=== PATIENT | female | born 1975 | race Two or more races ===

== ENCOUNTER 2020-07-26 10:45 | Outpatient (REF) | payer OTHER, SELFPAY | END 2020-07-26 10:46 | disposition home or self-care (01) | LOC: HO.LAB 10:45 | PROVIDERS: Visit Provider Internal Medicine | DX: Z20.828 Contact with and (suspected) exposure to other viral communicable diseases (principal) | CPT/HCPCS: 87635 ==

== ENCOUNTER 2020-09-26 08:33 | Outpatient (REF) | payer OTHER, SELFPAY ==
[2020-09-27 11:29] LABS: BV Int Neg Control Negative (Negative); BV Int Pos Control Positive (Positive)
[2020-09-28 14:57] LABS: C. trachomatis RNA TMA NOT DETECTED (NOT DETECTED); N. gonorrhoeae RNA TMA NOT DETECTED (NOT DETECTED)
== END 2020-09-26 08:34 | disposition home or self-care (01) ==
LOC: HO.LAB 08:33
PROVIDERS: PCP Physician Assistant; Visit Provider Advanced Practice Midwife
DX: R10.2 Pelvic and perineal pain (principal); N89.8 Other specified noninflammatory disorders of vagina
CPT/HCPCS: 87480; 87491; 87510; 87591; 87660; 99212

== ENCOUNTER 2020-10-14 15:45 | Outpatient (REF) | payer OTHER, SELFPAY ==
--- NOTE | 2020-10-14 15:48 | US_ITS ---
EXAMINATION: ULTRASOUND PELVIS COMPLETE CLINICAL INFORMATION: Pelvic pain. Spotting. COMPARISON: MRI pelvis 01/22/2020. Ultrasound pelvis 01/08/2020. TECHNIQUE: Transabdominal and transvaginal ultrasound of the pelvis is performed. FINDINGS: The uterus is anteverted and homogeneous in echotexture measuring 8.8 cm in length, 3.4 cm in AP and 4.4 cm in transverse dimension. Endometrial thickness measures 0.6 cm. There is an IUD within the endometrial canal in correct position. There are multiple small nabothian cysts in cervix the largest cyst measuring approximately 1.3 cm. Right ovary measures 1.8 x 2.1 x 1.5 cm and volume 3.0 mL. It appears unremarkable. Suboptimal visualization right ovary due to overlying bowel gas. The left ovary has been removed. There is no free fluid in cul-de-sac. US/US pelvic complete IMPRESSION: 1. IUD in correct position within the endometrial canal. The uterus is unremarkable. 2. Multiple nabothian cysts in the cervix with largest cyst measuring 1.3 cm. 3. The right ovary is unremarkable. The left ovary has been surgically removed.
--- NOTE | 2020-10-14 15:48 | US_ITS ---
EXAMINATION: ULTRASOUND PELVIS COMPLETE CLINICAL INFORMATION: Pelvic pain. Spotting. COMPARISON: MRI pelvis 01/22/2020. Ultrasound pelvis 01/08/2020. TECHNIQUE: Transabdominal and transvaginal ultrasound of the pelvis is performed. FINDINGS: The uterus is anteverted and homogeneous in echotexture measuring 8.8 cm in length, 3.4 cm in AP and 4.4 cm in transverse dimension. Endometrial thickness measures 0.6 cm. There is an IUD within the endometrial canal in correct position. There are multiple small nabothian cysts in cervix the largest cyst measuring approximately 1.3 cm. Right ovary measures 1.8 x 2.1 x 1.5 cm and volume 3.0 mL. It appears unremarkable. Suboptimal visualization right ovary due to overlying bowel gas. The left ovary has been removed. There is no free fluid in cul-de-sac. US/US transvaginal IMPRESSION: 1. IUD in correct position within the endometrial canal. The uterus is unremarkable. 2. Multiple nabothian cysts in the cervix with largest cyst measuring 1.3 cm. 3. The right ovary is unremarkable. The left ovary has been surgically removed.
== END 2020-10-14 15:46 | disposition home or self-care (01) ==
LOC: HO.US 15:45
PROVIDERS: Visit Provider Advanced Practice Midwife
DX: R10.2 Pelvic and perineal pain (principal)
CPT/HCPCS: 76830; 76856

== ENCOUNTER → 2020-10-16 11:16 | Outpatient (BNVA) | payer OTHER, SELFPAY | PROVIDERS: PCP Physician Assistant; Visit Provider Advanced Practice Midwife | DX: Z76.89 Persons encountering health services in other specified circumstances (principal) ==

== ENCOUNTER → 2020-11-11 11:03 | Outpatient (BNV) | payer OTHER, SELFPAY | PROVIDERS: PCP Internal Medicine; Visit Provider Internal Medicine | DX: Z80.3 Family history of malignant neoplasm of breast (principal); Z79.810 Long term (current) use of selective estrogen receptor modulators (SERMs) | CPT/HCPCS: 99212; 99213; 99214 ==

== ENCOUNTER → 2020-11-29 11:30 | Outpatient (BNVA) | payer OTHER, SELFPAY | PROVIDERS: PCP Internal Medicine; Visit Provider Urology | DX: N30.10 Interstitial cystitis (chronic) without hematuria (principal) | CPT/HCPCS: 81002; 99212 ==

== ENCOUNTER 2020-12-23 06:20 | Day surgery (SDC) | payer OTHER, SELFPAY ==
[2020-12-13 17:20] VITALS: BMI 28.0
--- NOTE | 2020-12-20 12:07 | HO.ANESPROP2 ---
Documented by User: Meagan Owens 12/20/20 12:09 HPI - Anesthesia Eval Consult details Narrative: 45yo F for Cystoscopy Hydrodistention of Bladder Last Cystoscopy Hydrodistention of Bladder 11/2018 with GA-mask (good effect with scop patch) PMFSH Active Problems Active Problems: All Active Problems (Updated 12/13/20 @ 17:17 by Candy Crowley RN) Pelvic pain (Acute) Vaginal discharge (Acute) Family history of breast cancer (Chronic) Interstitial cystitis (Acute) Past Medical History Medical History Endometriosis Endometriosis determined by laparoscopy Migraine PONV (postoperative nausea and vomiting) 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 Sleep terror Family History Family History Mother History of gastric cancer Breast cancer Maternal Grandmother Ovarian cancer Uterine cancer Cervical cancer Surgical History Surgical History History of elective breast augmentation (~2018) History of left oophorectomy (~2019) History of loop electrical excision procedure (LEEP) Social History Social History Alcohol intake: current Alcohol intake frequency: holidays/special occasions only Smoking Status: Never smoker Second Hand Smoke Exposure: No Use of substances other than those prescribed or required for medical reasons: No Have you been hit, kicked, punched, or otherwise hurt by someone within the past year? If so, by whom?: No Advance Directives: No Advance Directives Information Provided: No Advance Directives on File: No Recently lost weight without trying: No Gender identity: female Meds Allergies Allergy/AdvReac Type Severity Reaction Status Date / Time Gadolinium-Containing Allergy Severe SHORTNESS Verified 10/16/20 11:17 Contrast Medi OF BREATH [GADOLINIUM-CONTAINING CONTRAST] fluoxetine [From PROZAC] Allergy Intermediate PALPITATION Verified 10/16/20 11:17 S acetaminophen [Percocet] Allergy Unknown Itching Verified 12/13/20 17:17 oxycodone [Percocet] Allergy Unknown Palpitation Verified 10/16/20 11:17 s paroxetine [Paxil] Allergy Unknown Palpitation Verified 10/16/20 11:17 s Home Medications Medication Instructions Recorded Confirmed Last Taken Type alprazolam 0.25 mg tablet 0.25 mg PO BEDTIME PRN 09/26/20 12/13/20 Unknown History gabapentin 300 mg capsule 1,500 mg PO BEDTIME cap 09/26/20 12/13/20 Unknown History tamoxifen 20 mg tablet 20 mg PO DAILY 09/26/20 12/13/20 Unknown History Exam Exam Date and Time: December 20, 2020 1207 Height,Weight and Vital Signs: Height 5 ft 3 in Weight 71.668 kg Pertinent Lab Results Pertinent Lab Results: Laboratory Tests 11/11/20 11/11/20 11:54 11:54 WBC 6.5 Hgb 14.5 Hct 44.1 Plt Count 242 Sodium 139 Potassium 4.5 Chloride 105 Carbon Dioxide 27 BUN 11 Creatinine 1.03 Assessment and Plan Assessment Anesthesia Assessment: Chart Reviewed Documented by User: Andressa Prieto 12/23/20 07:15 [facility] Past Medical History Medical History Endometriosis Endometriosis determined by laparoscopy Migraine PONV (postoperative nausea and vomiting) 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 Sleep terror Family History Family History Mother History of gastric cancer Breast cancer Maternal Grandmother Ovarian cancer Uterine cancer Cervical cancer Surgical History Surgical History History of elective breast augmentation (~2018) History of left oophorectomy (~2019) History of loop electrical excision procedure (LEEP) Social History Social History Alcohol intake: current Alcohol intake frequency: holidays/special occasions only Smoking Status: Never smoker Second Hand Smoke Exposure: No Use of substances other than those prescribed or required for medical reasons: No Have you been hit, kicked, punched, or otherwise hurt by someone within the past year? If so, by whom?: No Advance Directives: No Advance Directives Information Provided: No Advance Directives on File: No Recently lost weight without trying: No Gender identity: female Meds Allergies Allergy/AdvReac Type Severity Reaction Status Date / Time Gadolinium-Containing Allergy Severe SHORTNESS Verified 10/16/20 11:17 Contrast Medi OF BREATH [GADOLINIUM-CONTAINING CONTRAST] fluoxetine [From PROZAC] Allergy Intermediate PALPITATION Verified 10/16/20 11:17 S acetaminophen [Percocet] Allergy Unknown Itching Verified 12/13/20 17:17 oxycodone [Percocet] Allergy Unknown Palpitation Verified 10/16/20 11:17 s paroxetine [Paxil] Allergy Unknown Palpitation Verified 10/16/20 11:17 s Home Medications Medication Instructions Recorded Confirmed Last Taken Type alprazolam 0.25 mg tablet 0.25 mg PO BEDTIME PRN 09/26/20 12/13/20 Unknown History gabapentin 300 mg capsule 1,500 mg PO BEDTIME cap 09/26/20 12/13/20 Unknown History tamoxifen 20 mg tablet 20 mg PO DAILY 09/26/20 12/13/20 Unknown History Exam Airway Mallampati Class: II TM Dist: >3cm Neck ROM: Full Assessment and Plan Assessment Anesthesia Assessment: Anesthesia Plan Discussed and Chart Reviewed Final Anesthetic Review NPO: Yes ASA Class: II Final Preanesthetic Review: No Changes in Pt Med Stat, Meds/Allgs Chart Reviewed, Consent Obtained/Reviewed and Anes Risks/Benef Reviewed Patient Risk: Low Procedure Risk: Low Assessment/Block/Sedation in SS: Assess/Block/Sedation-SS Anesthetic Plan Anesthetic Plan: MAC: Disposition: Standard PACU
[2020-12-23 06:20] VITALS: BP 123/78; PULSE 87; RESP 18; TEMP 36.5; O2SAT 99
[2020-12-23 06:38] LABS: UPreg QC Valid YES; Urine Pregnancy NEGATIVE (NEGATIVE)
[2020-12-23] MEDS: Lactated Ringers 1,000 ML 100 ML IVCONT (06:41)
[2020-12-23] MEDS: levoFLOXacin 500 MG TABLET PO (06:46)
[2020-12-23] MEDS: Scopolamine 1.5 MG PATCH.TD.3 TRANSDERMA (06:47)
--- NOTE | 2020-12-23 07:32 | MHC.SHP ---
Pre-Procedural Eval Section A The patient is an INPATIENT: No Changes since office visit: No Cold of Flu in the past 2 weeks, No New Medical Problems, No Changes in Medication and No Patient answered all questions The History & Physical has been completed within 30 days and I have reviewed it.: Yes Section B Chief Complaint: cystitis Allergies: Allergies Allergy/AdvReac Type Severity Reaction Status Date / Time Gadolinium-Containing Allergy Severe SHORTNESS Verified 10/16/20 11:17 Contrast Medi OF BREATH [GADOLINIUM-CONTAINING CONTRAST] fluoxetine [From PROZAC] Allergy Intermediate PALPITATION Verified 10/16/20 11:17 S acetaminophen [Percocet] Allergy Unknown Itching Verified 12/13/20 17:17 oxycodone [Percocet] Allergy Unknown Palpitation Verified 10/16/20 11:17 s paroxetine [Paxil] Allergy Unknown Palpitation Verified 10/16/20 11:17 s Plan Diagnosis/Plan: Unchanged (hydrodistention) I have reviewed the history and physical and performed a pertinent physical examination on my patient. No changes have occurred unless specified.
--- NOTE | 2020-12-23 07:57 | PM.OP ---
Brief Operative Note Date of Service: 12/23/20 Pre-op diagnosis: Interstitial cystitis Post-op diagnosis: same Procedure: Hydrodistention Surgeon: Paddy Murphy MD Anesthesia: MAC Estimated blood loss (mL): 0 Pathology: none sent Condition: stable Disposition: same day
--- NOTE | 2020-12-23 07:58 | W.PM.OPN ---
Operative Note Operative Note Date of Service: 12/23/20 Narrative: PreOperative Diagnosis: Interstitial cystitis Post Operative Diagnosis: Interstitial cystitis Procedure: Hydrodistention Surgeon: Dr Paddy Murphy Anesthesia: Mac Indications for procedure: Interstitial cystitis with ongoing urgency frequency. Prior success with hydrodistention. Procedure: After informed consent was verified the patient was brought to the operating room and placed in a supine position. Anesthesia was administered per protocol. Patient was placed in modified dorsal lithotomy position and prepped and draped in sterile fashion. Safety pause time-out was performed. Antibiotics have been given. 10 cc of viscous lidocaine inserted into bladder and allowed to sit for 3 minutes The bladder was then filled with bag at approximately 40 cm. This was allowed to sit for a minute. Total volume drained was 500 cc. Hydrodistention was repeated total volume gained was close to 600 cc. 30 cc of viscous lidocaine, 1% lidocaine and 0.5% bupivacaine was inserted into bladder completion of procedure for post operative pain management. Pathology: None Drains: Known
[2020-12-23 08:00] VITALS: BP 92/46; PULSE 80; RESP 20; TEMP 36.2; O2SAT 98
[2020-12-23 08:15] VITALS: BP 105/71; PULSE 81; RESP 16; O2SAT 96
[2020-12-23] MEDS: NaPROXEN 500 MG TABLET PO (08:20)
[2020-12-23] MEDS: Phenazopyridine HCL 100 MG TABLET PO (08:21)
[2020-12-23 08:30] VITALS: BP 109/79; PULSE 87; RESP 16; TEMP 36.2; O2SAT 99
== END 2020-12-23 09:09 ==
LOC: HO.SSS 06:21
PROVIDERS: Nurse Practitioner; PCP Physician Assistant; Visit Provider Urology
PROC: 0T7B7ZZ Dilation of Bladder, Via Natural or Artificial Opening (ICD-10-PCS; CPT 52260; principal; 2020-12-23 07:30)
DX: N30.10 Interstitial cystitis (chronic) without hematuria (principal); N80.9 Endometriosis, unspecified; G40.209 Localization-related (focal) (partial) symptomatic epilepsy and epileptic syndromes with complex partial seizures, not intractable, without status epilepticus; Z79.899 Other long term (current) drug therapy; Z91.041 Radiographic dye allergy status; Z88.8 Allergy status to other drugs, medicaments and biological substances
CPT/HCPCS: 52260; 81025; J1100; J2250; J2405; J3010

== ENCOUNTER → 2021-01-31 09:48 | Outpatient (BNVA) | payer OTHER, SELFPAY | PROVIDERS: PCP Physician Assistant; Visit Provider Urology ==

== ENCOUNTER 2021-02-03 13:28 | Outpatient (REF) | payer OTHER, SELFPAY ==
[2021-02-03 15:47] LABS: Syphilis Screen Nonreactive (Nonreactive)
[2021-02-04 04:50] LABS: HBsAGNum1 0.18 S/CO (0.00-0.99); HIV AB/AG Nonreactive (Nonreactive); HIV Num 1 0.06 S/CO (0.00-0.99); Hepatitis B Surface Antigen Negative (Negative); ~HepC Num1 0.09 S/CO (0.00-0.79); ~Hepatitis C Antibody Nonreactive (Nonreactive)
[2021-02-04 06:01] LABS: CT PCR NOT DETECTED (Not Detect.); NG PCR NOT DETECTED (Not Detect.)
[2021-02-04 12:36] LABS: BV Int Neg Control Negative (Negative); BV Int Pos Control Positive (Positive)
== END 2021-02-03 13:29 | disposition home or self-care (01) ==
LOC: HO.LAB 13:28
PROVIDERS: PCP Physician Assistant; Visit Provider Obstetrics & Gynecology
DX: Z01.419 Encounter for gynecological examination (general) (routine) without abnormal findings (principal); Z11.3 Encounter for screening for infections with a predominantly sexual mode of transmission; Z11.8 Encounter for screening for other infectious and parasitic diseases; Z11.4 Encounter for screening for human immunodeficiency virus [HIV]; Z11.59 Encounter for screening for other viral diseases; Z90.721 Acquired absence of ovaries, unilateral; Z88.8 Allergy status to other drugs, medicaments and biological substances
CPT/HCPCS: 36415; 86780; 86803; 87340; 87389; 87480; 87491; 87510; 87591; 87660

== ENCOUNTER 2021-02-06 10:55 | Outpatient (REF) | payer OTHER, SELFPAY ==
--- NOTE | ~2021-02-06 | MR_ITS ---
EXAMINATION: MR BRAIN WITHOUT CONTRAST CLINICAL INFORMATION: Complex partial seizure disorder. COMPARISON: MRI from 07/04/2008. TECHNIQUE: Multiplanar, multisequence imaging of the brain was acquired on a 3 Polina magnet without intravenous administration of contrast. FINDINGS: No diffusion abnormalities are identified to suggest an acute infarct. The ventricles are normal in size. No mass effect or midline shift is seen. Scattered nonspecific mild frontoparietal white matter signal changes noted bilaterally, increased compared to previous imaging. No extra-axial fluid collections are seen. Atlantooccipital assimilation evident with foreshortening of the clivus. There is additional basilar invagination without brainstem compression. The brainstem and cerebellum are normal. No focal cortical dysplasia or migrational abnormality is seen. The hippocampi are normal in appearance. The gradient refocused acquisition demonstrates no pathologic magnetic susceptibility artifact to indicate underlying acute or chronic blood products. The marrow signal is normal. The orbits and pituitary axis appear normal. The major intracranial flow voids at the level of the [place] are preserved. The dural venous sinus flow voids are maintained. The mastoid air cells and paranasal sinuses are well aerated. MR/MR head/brain wo con IMPRESSION: No acute process. Increased nonspecific mild white matter signal changes compared to previous imaging. No hippocampal pathology or epileptogenic focus identified. 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
== END 2021-02-06 10:56 | disposition home or self-care (01) ==
LOC: HO.MRI 10:55
PROVIDERS: Visit Provider Psychiatry & Neurology Neurology
DX: G93.40 Encephalopathy, unspecified (principal)
CPT/HCPCS: 70551

== ENCOUNTER 2021-02-27 10:39 | Outpatient (REF) | payer OTHER, SELFPAY ==
[2021-02-27 13:08] LABS: Erythrocyte Sedimentation Rate 4 MM/HR (0-20)
[2021-02-28 06:21] LABS: Lyme Abs Screen <0.90 index
[2021-02-28 13:37] LABS: Anti Nuclear Antibody Screen NEGATIVE (NEGATIVE)
== END 2021-02-27 10:40 | disposition home or self-care (01) ==
LOC: HO.LAB 10:39
PROVIDERS: Visit Provider Psychiatry & Neurology Neurology
DX: G40.209 Localization-related (focal) (partial) symptomatic epilepsy and epileptic syndromes with complex partial seizures, not intractable, without status epilepticus (principal); G93.49 Other encephalopathy
CPT/HCPCS: 36415; 85652; 86038; 86039; 86617; 86618

== ENCOUNTER 2021-04-28 10:59 | Outpatient (REF) | payer OTHER, SELFPAY ==
--- NOTE | ~2021-04-28 | MM_ITS ---
EXAMINATION: MM SCREENING DIGITAL BREAST TOMOSYNTHESIS, BILATERAL CLINICAL INFORMATION: Screening. Asymptomatic. The lifetime risk of breast cancer based on the Tyrer-Cuzick Model is 17%. COMPARISON: Mammography: 03/22/2020, 12/08/2018, 12/02/2017 TECHNIQUE: Digital mammography is performed in craniocaudal and mediolateral oblique views along with computer-aided detection (CAD). Digital breast tomosynthesis is performed in implant-displaced craniocaudal and implant-displaced mediolateral oblique views along with computer-aided detection (CAD). Synthesized 2D images are generated from the tomosynthesis. FINDINGS: The breasts are heterogeneously dense, which may obscure small masses (ACR BI-RADS breast composition Category c). There are bilateral implants. The implant contours are smooth and similar to prior study. Parenchymal pattern is similar to prior exam. No interval mass or architectural abnormality. No abnormal calcifications. The axilla and skin contours are unremarkable. MM/MM tomosynthesis screen imp BI IMPRESSION: No mammographic evidence of malignancy. ASSESSMENT: BI-RADS 1: Negative RECOMMENDATION: Routine annual mammography screening. This patient's information was entered into a reminder system with a target due date for their next mammogram.
== END 2021-04-28 11:00 | disposition home or self-care (01) ==
LOC: HO.MAMMO 10:59
PROVIDERS: Visit Provider Obstetrics & Gynecology
DX: Z12.31 Encounter for screening mammogram for malignant neoplasm of breast (principal)
CPT/HCPCS: 77063; 77067

== ENCOUNTER → 2021-08-26 11:30 | Outpatient (BNVA) | payer OTHER, SELFPAY | PROVIDERS: PCP Physician Assistant | DX: N30.10 Interstitial cystitis (chronic) without hematuria (principal) | CPT/HCPCS: 99212 ==

== ENCOUNTER → 2022-02-17 09:43 | Outpatient (BNVA) | payer OTHER, SELFPAY | DX: Z13.89 Encounter for screening for other disorder (principal) ==

== ENCOUNTER 2022-03-04 09:34 | Outpatient (REF) | payer OTHER, SELFPAY ==
[2022-03-04 12:29] LABS: HBsAGNum1 0.22 S/CO (0.00-0.99); HIV AB/AG Nonreactive (Nonreactive); HIV Num 1 0.06 S/CO (0.00-0.99); Hepatitis B Surface Antigen Negative (Negative); ~Hepatitis C Antibody Nonreactive (Nonreactive)
[2022-03-04 12:46] LABS: Syphilis Screen Nonreactive (Nonreactive)
[2022-03-04 14:32] LABS: CT PCR NOT DETECTED (Not Detect.); NG PCR NOT DETECTED (Not Detect.)
[2022-03-05 11:03] LABS: BV Int Neg Control Negative (Negative); BV Int Pos Control Positive (Positive)
[2022-03-07 13:02] LABS: HPV mRNA E6/E7 rflx Not Detected (Not Detected)
== END 2022-03-04 09:35 | disposition home or self-care (01) ==
LOC: HO.LAB 09:34
PROVIDERS: PCP Physician Assistant; Visit Provider Advanced Practice Midwife
DX: Z01.419 Encounter for gynecological examination (general) (routine) without abnormal findings (principal); N30.10 Interstitial cystitis (chronic) without hematuria; N80.9 Endometriosis, unspecified; R10.2 Pelvic and perineal pain; Z86.018 Personal history of other benign neoplasm; Z11.3 Encounter for screening for infections with a predominantly sexual mode of transmission; Z97.5 Presence of (intrauterine) contraceptive device; Z79.899 Other long term (current) drug therapy; Z86.16 Personal history of COVID-19
CPT/HCPCS: 36415; 86780; 86803; 87340; 87389; 87480; 87491; 87510; 87591; 87624; 87660; 88142

== ENCOUNTER 2022-04-03 13:28 | Emergency (ER) | payer OTHER, SELFPAY ==
--- NOTE | ~2022-04-03 | CT_ITS ---
EXAMINATION: CT HEAD WITHOUT CONTRAST CLINICAL INFORMATION: Headaches COMPARISON: Brain MRI 02/06/2021 TECHNIQUE: Imaging was performed from the skull base to vertex without intravenous administration of contrast. This CT examination was performed using dose optimization techniques as appropriate, variously including the following: *Automated exposure control *Adjustment of mA and/or kV according to patient size (this includes techniques or standardized protocols for targeted exams where dose is matched to indication/reason for exam; i.e. extremities or head) *Use of iterative reconstruction technique Total exam dose length product: 649 mGy-cm FINDINGS: No intra or extra-axial fluid collection, hemorrhage, or mass. No ventriculomegaly. No midline shift or herniation. Basal cisterns are patent. Sanchez-white matter differentiation is maintained. No territorial encephalomalacia. No significant volume loss. There is no abnormal attenuation within the brain parenchyma. No calvarial fracture or soft tissue abnormality. The mastoid air cells and visualized portions of the paranasal sinuses are well aerated. CT/CT head/brain wo con IMPRESSION: 1. No acute intracranial pathology.
[2022-04-03 14:24] VITALS: BP 141/86; PULSE 73; RESP 16; TEMP 36.1; O2SAT 99; BMI 28.3
[2022-04-03 21:11] LABS: MANUAL DIFF FLAG NO
[2022-04-03 21:14] LABS: Basophils Percent Auto 0.3 % (0-2); Eosinophils Absolute Auto 0.2 X10*3/uL (0.0-0.4); Eosinophils Percent Auto 2.1 % (0-4); Hematocrit 46.9 % (37.0-47.0); Hemoglobin 15.5 g/dl (12.0-16.0); Imm Gran Abs Auto 0.02 X10*3/uL (0.00-0.03); Imm Gran Pct Auto 0.2 % (0.0-0.4); Lymphocytes Absolute Auto 2.5 X10*3/uL (1.2-4.9); Lymphocytes Percent Auto 27.3 % (20-40); Mean Corpuscular Hemoglobin 32.3 pg (27.0-33.0); Mean Corpuscular Volume 97.7 fL (80.0-98.0); Mean Platelet Volume 11.7 fL (9.4-12.3); Monocytes Absolute Auto 0.6 X10*3/uL (0.1-1.2); Monocytes Percent Auto 6.2 % (2-11); Neutrophils Absolute Auto 5.8 x10*3/uL (2.0-8.3); Neutrophils Percent Auto 63.9 % (45-73); Platelet Count 267 X10*3/uL (160-400); Red Cell Distribution Width 12.4 % (11.0-16.0)
[2022-04-03 21:27] LABS: Anion Gap 14 (12-20); Blood Urea Nitrogen 10 mg/dL (9-16); Calcium 9.6 mg/dL (8.4-10.2); Carbon Dioxide 27 mmol/L (22-29); Chloride 105 mmol/L (96-108); Creatinine Clr Calc Pharmacy 69.9; Estimated Glomerular Filt Rate > 60; Glucose Random 98 mg/dL (60-115); Sodium 142 mmol/L (135-145)
[2022-04-03] MEDS: 0.9 % Sodium Chloride 1,000 ML 999 ML IV (21:27)
[2022-04-03] MEDS: ondansetron HCL 4 MG/2 ML VIAL IVPUSH (21:27)
[2022-04-03] MEDS: diphenhydrAMINE HCL 50 MG/ML VIAL 25 MG IVPUSH (21:27)
--- NOTE | 2022-04-03 21:42 | ED.HA ---
HPI - Headache General Chief Complaint: Headache Stated Complaint: headache, vomiting Time Seen by Provider: 04/03/22 20:45 Source: patient Mode of arrival: ambulatory Limitations: no limitations History of Present Illness HPI Narrative: 46-year-old female with history of headache. Patient presented with headache for the past month, patient was seen and evaluated by neurologist and was recommended to take [id number] medication. For the past 2 days patient been having nausea and vomiting. Also been complaining lot of facial pain. No fever, no chills. Related Data Home Medications Medication Instructions Recorded Confirmed alprazolam 0.5 mg tablet 0.5 mg PO DAILY PRN Anxiety 01/31/21 03/26/22 fluorometholone acetate 0.1 % eye 0.1 drp ophthalmic (eye) DAILY 01/31/21 03/26/22 drops,suspension albuterol sulfate 90 mcg/actuation 2 puff inhalation Q6H PRN Wheezing 02/03/21 03/26/22 aerosol inhaler (Ventolin HFA) escitalopram oxalate 10 mg tablet 10 mg PO DAILY 02/17/22 03/26/22 (Lexapro) fluticasone propionate 110 2 puff inhalation BID 02/17/22 03/26/22 mcg/actuation HFA aerosol inhaler (Flovent HFA) levetiracetam 750 mg tablet 750 mg PO BID 02/17/22 03/26/22 (Keppra) levonorgestrel 20 mcg/24 hours (7 52 device intrauterine DIRECTED 03/04/22 03/26/22 yrs) 52 mg intrauterine device (Mirena) Previous Rx's Medication Instructions Recorded tamoxifen 20 mg tablet 20 mg PO DAILY #90 tabs 05/26/21 oxybutynin chloride 5 mg tablet 5 mg PO Q8-12H PRN bladder spasms 12/19/21 30 days #90 tabs Allergies Allergy/AdvReac Type Severity Reaction Status Date / Time Gadolinium-Containing Allergy Severe SHORTNESS Verified 03/04/22 09:54 Contrast Medi OF BREATH [GADOLINIUM-CONTAINING CONTRAST] fluoxetine [From PROZAC] Allergy Intermediate PALPITATION Verified 03/04/22 09:54 S acetaminophen [Percocet] Allergy Unknown Itching Verified 03/04/22 09:54 oxycodone [Percocet] Allergy Unknown Palpitation Verified 06/01/22 09:54 s paroxetine [Paxil] Allergy Unknown Palpitation Verified 03/04/22 09:54 s Review of Systems Review of Systems: All other systems are reviewed and are negative Constitutional: Reports as per HPI and Reports no additional constitutional complaints Eyes: Reports as per HPI and Reports no additional eye complaints Reports system reviewed and no additional complaints, except as documented Cardiovascular: Reports as per HPI and Reports no additional cardiovascular complaints Respiratory: Reports as per HPI and Reports no additional respiratory complaints Gastrointestinal: Reports as per HPI and Reports no additional gastrointestinal complaints Genitourinary: Reports no additional female genitourinary complaints Musculoskeletal: Reports no additional musculoskeletal complaints Skin/Breast: Reports system reviewed and no additional complaints, except as docu Psychiatric: Reports no additional psychiatric complaints Endocrine: Reports no additional endocrine complaints Hematologic/Lymphatic: Reports no additional hematologic/lymphatic complaints Allergic/Immunologic: Reports no additional allergic/immunologic complaints Reports system reviewed and no additional complaints, except as documented and Reports Abnormal speech present PMFSH Past Medical History Medical History COVID-19 Endometriosis Endometriosis determined by laparoscopy Migraine PONV (postoperative nausea and vomiting) 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 Sleep terror Surgical History History of elective breast augmentation (~2018) History of left oophorectomy (~2019) History of loop electrical excision procedure (LEEP) Family History Family History Mother History of gastric cancer Breast cancer Maternal Grandmother Ovarian cancer Uterine cancer Cervical cancer Social History Social History Household Members: Family Housing: House Are you a primary child care director to a significant other at home: Yes (dad) Do you presently have visiting nurse or other home services: No Alcohol intake: current Alcohol intake frequency: holidays/special occasions only Patient Tobacco Use Status: Never used Tobacco Second Hand Smoke Exposure: No Advance Directives: No Advance Directives Information Provided: No service: No Current occupational status: other Gender identity: Female Physical Exam Vital Signs: Vital Signs: Last Vital Signs Temp 98.2 F 04/03/22 22:26 Pulse 91 04/03/22 22:26 Resp 16 04/03/22 23:07 BP 130/35 L 04/03/22 22:26 Pulse Ox 98 04/03/22 22:26 O2 Del Method 04/03/22 22:26 BMI result Body Mass Index 28.3 Vital signs have been reviewed as appeared to be correct. Blood pressure normal. Heart rate normal. Respiration rate normal. Temperature normal. Oxygen saturation normal. Appearance: Alert. Oriented X3. No acute distress. Head: Normal external exam. Normocephalic. Atraumatic. No Sanchez signs noted. No raccoon eyes noted Eyes: PERRLA. EOMI. Conjunctiva and sclera normal. Eyelids normal. ENT: TM's Normal. Pharynx normal. Uvula midline. Moist mucous membranes. No trismus noted. No drooling noted. No muffled voice noted. Neck: Normal inspection. Neck supple. FROM. No adenopathy. Thyroid Normal. No meningeal signs. No neck mass noted. CVS: Normal heart rate and rhythm. Heart sound normal. No murmurs noted. Pulses normal throughout. Respiratory: No respiratory distress. Painless inspiration. Breath sounds normal. No wheezes/rales/rhonchi noted. Chest nontender. No accessory muscle usage noted or decreased air movement noted. Abdomen: Soft and nontender. Bowel sounds normal in all 4 quadrants. No distention noted. No organomegaly noted. No visible injury noted. Back: No CVA tenderness. Full range of motion noted. Skin: Skin warm and dry. Normal skin color. Normal skin turgor. No rashes/lesions/lacerations noted. Extremities: No lower extremity edema. Extremities exhibit normal range of motion. Extremities nontender. Neuro: Oriented X 3. Cranial nerve exam: II-XII are grossly intact No motor deficit. No sensory deficit. Reflexes normal. Course Course Course Narrative: Assessment and plan. Patient feels better, able to tolerate p.o. intake, normal neuro exam, normal head CT. MDM - Headache Lab Data Attestation: I reviewed the patient's lab results. Result diagrams: 04/03/22 21:07 04/03/22 21:07 Labs: Lab Results 04/03/22 04/03/22 Range/Units 21:07 21:07 WBC 9.0 (4.8-10.8) X10*3/uL RBC 4.80 (4.20-5.50) X10*6/uL Hgb 15.5 (12.0-16.0) g/dl Hct 46.9 (37.0-47.0) % MCV 97.7 (80.0-98.0) fL MCH 32.3 (27.0-33.0) pg MCHC 33.0 (31.0-35.0) g/dl RDW 12.4 (11.0-16.0) % Plt Count 267 (160-400) X10*3/uL MPV 11.7 (9.4-12.3) fL Immature Gran % (Auto) 0.2 (0.0-0.4) % Neut % (Auto) 63.9 (45-73) % Lymph % (Auto) 27.3 (20-40) % Cottle % (Auto) 6.2 (2-11) % Eos % (Auto) 2.1 (0-4) % Baso % (Auto) 0.3 (0-2) % Lymph # (Auto) 2.5 (1.2-4.9) X10*3/uL Cottle # (Auto) 0.6 (0.1-1.2) X10*3/uL Eos # (Auto) 0.2 (0.0-0.4) X10*3/uL Baso # (Auto) 0.0 (0.0-0.2) X10*3/uL Abs Immat Gran (auto) 0.02 (0.00-0.03) X10*3/uL Absolute Neuts (auto) 5.8 (2.0-8.3) x10*3/uL Absolute Nucleated RBC 0.000 (0.0-0.012) X10*3/uL Nucleated RBC % (auto) 0.0 (0.0-0.2) /100WBC Sodium 142 (135-145) mmol/L Potassium 4.0 (3.3-5.1) mmol/L Chloride 105 (96-108) mmol/L Carbon Dioxide 27 (22-29) mmol/L Anion Gap 14 (12-20) BUN 10 (9-16) mg/dL Creatinine 0.97 (0.5-1.4) mg/dL Estim Creat Clear Calc 69.9 Estimated GFR > 60 Random Glucose 98 (60-115) mg/dL Calcium 9.6 (8.4-10.2) mg/dL Imaging Data CT scan - head: Attestation: I personally reviewed and interpreted this imaging study as follows: Radiologist's impression: No acute pathology. Discharge Plan Discharge Clinical Impression: Headache Patient Disposition: Home, Self-Care Instructions: Acute Headache (ED) Prescriptions: No Action oxybutynin chloride 5 mg tablet 5 mg PO Q8-12H PRN (Reason: bladder spasms) 30 Days Qty: 90 6RF tamoxifen 20 mg tablet 20 mg PO DAILY Qty: 90 4RF Mirena 20 mcg/24 hours (7 yrs) 52 mg intrauterine device 52 device intrauterine DIRECTED albuterol sulfate [Ventolin HFA] 90 mcg/actuation HFA aerosol inhaler 2 puff inhalation Q6H PRN (Reason: Wheezing) Flarex 0.1 % drops,suspension 0.1 drp ophthalmic (eye) DAILY alprazolam 0.5 mg tablet 0.5 mg PO DAILY PRN (Reason: Anxiety) levetiracetam [Keppra] 750 mg tablet 750 mg PO BID Flovent HFA 110 mcg/actuation HFA aerosol inhaler 2 puff inhalation BID escitalopram oxalate [Lexapro] 10 mg tablet 10 mg PO DAILY Referrals: Nette Willis MD [Physician] - Jose Alejandro Nichols MD [Primary Care Provider] -
[2022-04-03 22:26] VITALS: BP 130/35; PULSE 91; RESP 16; TEMP 36.8; O2SAT 98
[2022-04-03 23:07] VITALS: RESP 16
[2022-04-03] MEDS: Morphine Sulfate 2 MG/ML CARTRIDGE IVPUSH (23:07)
== END 2022-04-04 00:11 | disposition home or self-care (01) ==
PROVIDERS: Emergency Provider Emergency Medicine; PCP Internal Medicine
DX: R51.9 Headache, unspecified (principal); Z79.899 Other long term (current) drug therapy
CPT/HCPCS: 36415; 70450; 80048; 85025; 96361; 96374; 96375; 99284; J1200; J2270; J2405

== ENCOUNTER 2022-04-07 14:23 | Outpatient (REF) | payer OTHER, SELFPAY ==
--- NOTE | ~2022-04-07 | US_ITS ---
EXAMINATION: US PELVIS CLINICAL INFORMATION: Pain COMPARISON: Previous exam October 2020 TECHNIQUE: Ultrasound of the pelvis is performed using both transabdominal and transvaginal transducers along with Doppler. Transvaginal imaging is performed due to inadequate visualization transabdominally. FINDINGS: The uterus is anteverted and retroflexed and measures 9 x 4 x 5 cm in dimension. There is an IUD in the uterus in satisfactory position. Endometrium is not well visualized but does not appear thickened. No focal uterine lesion is seen. There are nabothian cysts in the cervix. The right ovary measures 3.8 x 2.5 x 3.3 cm. There are multiple right ovarian simple cysts or follicles, at least 4, largest measuring 2 cm. The left ovary is not seen. There is trace fluid in the pelvis. US/US pelvic and transvaginal IMPRESSION: IUD in the uterus in satisfactory position. Multiple right ovarian simple cysts or follicles.
== END 2022-04-07 14:24 | disposition home or self-care (01) ==
LOC: HO.US 14:23
PROVIDERS: Visit Provider Advanced Practice Midwife
DX: R10.2 Pelvic and perineal pain (principal); N30.10 Interstitial cystitis (chronic) without hematuria; N80.9 Endometriosis, unspecified; Z86.018 Personal history of other benign neoplasm
CPT/HCPCS: 76830; 76856

== ENCOUNTER → 2022-04-15 11:10 | Outpatient (BNVA) | payer OTHER, SELFPAY | PROVIDERS: PCP Internal Medicine; Visit Provider Advanced Practice Midwife | DX: N80.9 Endometriosis, unspecified (principal); Z86.018 Personal history of other benign neoplasm; Z97.5 Presence of (intrauterine) contraceptive device | CPT/HCPCS: 99212 ==

== ENCOUNTER 2022-06-27 08:39 | Outpatient (REF) | payer OTHER, SELFPAY ==
--- NOTE | ~2022-06-27 | MM_ITS ---
EXAMINATION: MM SCREENING DIGITAL BREAST TOMOSYNTHESIS, BILATERAL CLINICAL INFORMATION: Screening. Asymptomatic. The lifetime risk of breast cancer based on the Tyrer-Cuzick Model is 20%. COMPARISON: Mammography: 04/28/2021, 03/22/2020, 12/18/2018 TECHNIQUE: Digital mammography is performed in craniocaudal and mediolateral oblique views along with computer-aided detection (CAD). Digital breast tomosynthesis is performed in implant-displaced craniocaudal and implant-displaced mediolateral oblique views along with computer-aided detection (CAD). Synthesized 2D images are generated from the tomosynthesis. FINDINGS: The breasts are heterogeneously dense, which may obscure small masses (ACR BI-RADS breast composition Category c). Parenchymal pattern is similar to prior studies. There is no developing density or architectural abnormality. There are bilateral implants with smooth contours are similar to prior exam. There are no abnormal calcifications. The axilla and skin contours are unremarkable. No significant changes. MM/MM tomosynthesis screen imp BI IMPRESSION: No mammographic evidence of malignancy. ASSESSMENT: BI-RADS 1: Negative RECOMMENDATION: Routine annual mammography screening. This patient's information was entered into a reminder system with a target due date for their next mammogram.
== END 2022-06-27 08:40 | disposition home or self-care (01) ==
LOC: HO.MAMMO 08:39
PROVIDERS: Visit Provider Physician Assistant
DX: Z12.31 Encounter for screening mammogram for malignant neoplasm of breast (principal)
CPT/HCPCS: 77063; 77067

== ENCOUNTER 2022-09-14 11:38 | Emergency (ER) | payer OTHER, SELFPAY ==
--- NOTE | ~2022-09-14 | CT_ITS ---
EXAMINATION: CT HEAD WITHOUT CONTRAST CLINICAL INFORMATION: Headache COMPARISON: Head CT 04/03/2022 TECHNIQUE: Imaging was performed from the skull base to vertex without intravenous administration of contrast. This CT examination was performed using dose optimization techniques as appropriate, variously including the following: *Automated exposure control *Adjustment of mA and/or kV according to patient size (this includes techniques or standardized protocols for targeted exams where dose is matched to indication/reason for exam; i.e. extremities or head) *Use of iterative reconstruction technique Total exam dose length product: 671 mGy-cm FINDINGS: No intra or extra-axial fluid collection, hemorrhage, or mass. No ventriculomegaly. No midline shift or herniation. Basal cisterns are patent. Sanchez-white matter differentiation is maintained. No territorial encephalomalacia. No significant volume loss. There is no abnormal attenuation within the brain parenchyma. No calvarial fracture or soft tissue abnormality. The mastoid air cells and visualized portions of the paranasal sinuses are well aerated. CT/CT head/brain wo IV con IMPRESSION: 1. No acute intracranial pathology.
--- NOTE | ~2022-09-14 | XR_ITS ---
EXAMINATION: XR CHEST CLINICAL INFORMATION: Chest pressure, hypertension COMPARISON: Chest x-ray 08/23/2019 TECHNIQUE: 2 views of the chest were obtained. FINDINGS: No significant abnormality is noted involving the heart, lungs, mediastinum, bony thorax or soft tissues. XR/XR chest 2V IMPRESSION: Unremarkable chest examination.
--- NOTE | 2022-09-14 11:43 | ED_ITS ---
HPI - Chest Pain General Chief Complaint: Chest Pain <Lolly Figueroa NP - Last Filed: 09/14/22 11:49> Stated Complaint: Chest pain/Head pressure sent by PCP <Lolly Figueroa NP - Last Filed: 09/14/22 11:49> Time Seen by Provider: 09/14/22 12:29 <Lolly Figueroa NP - Last Filed: 09/14/22 11:49> Source: patient and old records reviewed <Madison Irvin DO - Last Filed: 09/14/22 14:58> Mode of arrival: ambulatory <Madison Irvin DO - Last Filed: 09/14/22 14:58> Limitations: no limitations <Madison Irvin DO - Last Filed: 09/14/22 14:58> History of Present Illness HPI narrative: 46 yo female with hx of seizures compliant with keppra has IUD here with c/o on and off chest pain for the past week - no dyspnea reported no cough or fevers. She is not on OCPs. The patient also reports 2 weeks of R sided headache that won't go away and she checks her BP at home which is 160s - the patient has never had HTN. She notes no trauma. No recent seizures. PCP sent her in for evaluation. The patient feels she is confused too and cannot remember her days well which has been going on since the summer but this week seems worse. PCP office BP 110 <Madison Irvin DO - Last Filed: 09/14/22 14:58> MD complaint: chest pain (headaches) <Madison Irvin DO - Last Filed: 09/14/22 14:58> Onset (ago): week(s) (2) <Madison Irvin DO - Last Filed: 09/14/22 14:58> Timing of current episode: constant <Madison Irvin DO - Last Filed: 09/14/22 14:58> Prior episodes: No <Madison Irvin DO - Last Filed: 09/14/22 14:58> Onset: during rest <Madison Irvin DO - Last Filed: 09/14/22 14:58> Pain location: substernal and other (also R sided headache) <Madison Irvin DO - Last Filed: 09/14/22 14:58> Pain radiation: none <Madison Irvin DO - Last Filed: 09/14/22 14:58> Severity: moderate <Madison Irvin DO - Last Filed: 09/14/22 14:58> Quality: aching and dull <Madison Irvin DO - Last Filed: 09/14/22 14:58> Relieving factors: nothing <Madison Irvin DO - Last Filed: 09/14/22 14:58> Exacerbating factors: nothing <Madison Irvin DO - Last Filed: 09/14/22 14:58> Context: other (notes BP has been high at home 160s went to PCP this AM sent to ED but normotensive 110 with PCP) <Madison Irvin DO - Last Filed: 09/14/22 14:58> Associated symptoms: nausea and other (feels confused, blurry vision) <Madison Irvin DO - Last Filed: 09/14/22 14:58> Treatment prior to arrival: none <Madison Irvin DO - Last Filed: 09/14/22 14:58> Related Data Home Medications: Home Medications Medication Instructions Recorded Confirmed alprazolam 0.5 mg tablet 0.5 mg PO DAILY PRN Anxiety 01/31/21 06/26/22 fluorometholone acetate 0.1 % eye 0.1 drp ophthalmic (eye) DAILY 01/31/21 06/26/22 drops,suspension albuterol sulfate 90 mcg/actuation 2 puff inhalation Q6H PRN Wheezing 02/03/21 06/26/22 aerosol inhaler (Ventolin HFA) escitalopram oxalate 10 mg tablet 10 mg PO DAILY 02/17/22 06/26/22 (Lexapro) fluticasone propionate 110 2 puff inhalation BID 02/17/22 06/26/22 mcg/actuation HFA aerosol inhaler (Flovent HFA) levetiracetam 750 mg tablet 750 mg PO BID 02/17/22 06/26/22 (Keppra) levonorgestrel 20 mcg/24 hours (8 52 device intrauterine DIRECTED 03/04/22 06/26/22 yrs) 52 mg intrauterine device (Mirena) fluticasone propionate 50 1 spray intranasal DAILY 04/15/22 06/26/22 mcg/actuation nasal spray,suspension (Allergy Relief (fluticasone)) loratadine 10 mg tablet (Allergy 10 mg PO DAILY 04/15/22 06/26/22 Relief (loratadine)) Previous Rx's Medication Instructions Recorded oxybutynin chloride 5 mg tablet 5 mg PO Q8-12H PRN bladder spasms 12/19/21 30 days #90 tabs tamoxifen 20 mg tablet 20 mg PO DAILY #90 tabs 06/24/22 nitrofurantoin 100 mg PO Q12H 3 days #6 caps 09/14/22 monohydrate/macrocrystals 100 mg capsule (Macrobid) <Lolly Figueroa NP - Last Filed: 09/14/22 11:49> Allergies/Adverse Reactions: Allergies Allergy/AdvReac Type Severity Reaction Status Date / Time Gadolinium-Containing Allergy Severe SHORTNESS Verified 09/14/22 11:42 Contrast Medi OF BREATH [GADOLINIUM-CONTAINING CONTRAST] acetaminophen [Percocet] Allergy Intermediate Itching Verified 09/14/22 11:42 fluoxetine [From PROZAC] Allergy Intermediate PALPITATION Verified 09/14/22 11:42 S oxycodone [Percocet] Allergy Intermediate Palpitation Verified 09/14/22 11:42 s paroxetine [Paxil] Allergy Intermediate Palpitation Verified 09/14/22 11:42 s <Lolly Figueroa NP - Last Filed: 09/14/22 11:49> Review of Systems Review of Systems: Constitutional : No Fever, No Chills, No Fatigue ENT/Mouth : No sore throat, No Rhinorrhea Eyes: No Eye Pain, No Swelling, No Redness Cardiovascular : pos Chest Pain, No SOB, No Dyspnea on Exertion Respiratory : No Cough, No Sputum Gastrointestinal : No Nausea, No Vomiting, No Diarrhea, No abdominal Pain Genitourinary : No Dysuria, No Urinary Frequency, No Hematuria, Musculoskeletal : No joint pain, No Myalgias, No Joint Swelling Skin : No Skin Lesions, No rash Neuro : No Weakness, No Numbness, No Dizziness, positive Headache, pos confusion Psych : No Anxiety/Panic, No Depression Heme/Lymph: No Bruising, No Bleeding,No Lymphadenopathy Endocrine : No Polyuria, No Polydipsia All other systems reviewed and are negative <Madison Irvin DO - Last Filed: 09/14/22 14:58> PMFSH Past Medical History Attestation statement: The following information was validated with the patient. <Madison Irvin DO - Last Filed: 09/14/22 14:58> Medical History: Medical History COVID-19 Endometriosis Endometriosis determined by laparoscopy Migraine PONV (postoperative nausea and vomiting) 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 Sleep terror <Lolly Figueroa NP - Last Filed: 09/14/22 11:49> Surgical History: Surgical History History of elective breast augmentation (~2019) History of left oophorectomy (~2019) History of loop electrical excision procedure (LEEP) <Lolly Figueroa NP - Last Filed: 09/14/22 11:49> Family History Family History: Family History Mother History of gastric cancer Breast cancer Maternal Grandmother Ovarian cancer Uterine cancer Cervical cancer <Lolly Figueroa NP - Last Filed: 09/14/22 11:49> Social History Social History: Social History Household Members: Family Housing: House Are you a primary care connector to a significant other at home: Yes (dad) Do you presently have visiting nurse or other home services: No Alcohol intake: current Alcohol intake frequency: holidays/special occasions only Patient Tobacco Use Status: Never used Tobacco Second Hand Smoke Exposure: No Advance Directives: No Advance Directives Information Provided: No service: No Current occupational status: other Gender identity: Female <Lolly Figueroa NP - Last Filed: 09/14/22 11:49> Physical Exam Vital Signs: Vital Signs: Last Vital Signs Temp 98.3 F 09/14/22 11:44 Pulse 79 09/14/22 13:22 Resp 16 09/14/22 13:22 BP 131/80 09/14/22 13:22 Pulse Ox 100 09/14/22 13:22 O2 Del Method 09/14/22 13:22 BMI result Body Mass Index 28.7 <Lolly Figueroa NP - Last Filed: 09/14/22 11:49> Vital Signs: Last Vital Signs Temp 98.3 F 09/14/22 11:44 Pulse 79 09/14/22 13:22 Resp 16 09/14/22 13:22 BP 131/80 09/14/22 13:22 Pulse Ox 100 09/14/22 13:22 O2 Del Method 09/14/22 13:22 BMI result Body Mass Index 28.7 <Madison Irvin DO - Last Filed: 09/14/22 14:58> Appearance: Alert. Oriented X3. No acute distress. Eyes: Pupils equal, round and reactive to light. ENT: Pharynx normal. Neck: Normal inspection. Neck supple. CVS: Normal heart rate and rhythm. Pulses normal. Respiratory: No respiratory distress. Breath sounds normal. Abdomen: Soft and nontender. Skin: Skin warm and dry. Normal skin color. Normal skin turgor. Extremities: No lower extremity edema. No calf ttp Neuro: Oriented X 3. No motor deficit. No sensory deficit. normal gait no ataxia <Madison Irvin DO - Last Filed: 09/14/22 14:58> Course Course Course Narrative: This is a rapid medical exam. Deferred additional HPI, ROS, PE to primary provider. 46 yo female with pmh of seizure disorder, on tamoxifen pptx here with several weeks of head pressure, chest pressure (started ), feels confused with blurry vision and elevated blood pressures at homes. Seen at PCP and sent in for further evaluation. BP normotensive in triage. Has logs with her with elevated bp up to 160/110 at home. will check labs, EKG, CXR. VSS <Lolly Figueroa NP - Last Filed: 09/14/22 11:49> This is a rapid medical exam. Deferred additional HPI, ROS, PE to primary provider. 46 yo female with pmh of seizure disorder, on tamoxifen pptx here with several weeks of head pressure, chest pressure (started ), feels confused with blurry vision and elevated blood pressures at homes. Seen at PCP and sent in for further evaluation. BP normotensive in triage. Has logs with her with elevated bp up to 160/110 at home. will check labs, EKG, CXR. VSS BP normal no acute findings at this time can be DC home <Madison Irvin DO - Last Filed: 09/14/22 14:58> Medical Decision Making Medical Decision Making MDM Narrative: 46 yo female with reports of headaches R side x 2 weeks and feels confused at times she has hx of seizures but no recent seizures or trauma - she is mentating fine here and has normal BPs though notes BP has been up to 160s at home for 1 week. She has no fevers other at this time labs, CT head for mass ordered. She also has atypical chest pain but is PERC negative and EKG is nonischemic - CXR and troponin ordered seems atypical for ACS and has no sig risk factors. Dispo per results and findings. <Madison Irvin DO - Last Filed: 09/14/22 14:58> Differential Diagnosis Differential Diagnoses: The differential diagnosis associated with the presentation includes (tension headache, migraine, mass, atypical chest pain) <Madison Irvin DO - Last Filed: 09/14/22 14:58> Lab Data [facility] Lab Attestation statement: I reviewed the patient's lab results. <Madison Irvin DO - Last Filed: 09/14/22 14:58> Result Diagrams: : 09/14/22 12:00 09/14/22 12:00 <Lolly Figueroa NP - Last Filed: 09/14/22 11:49> Labs: Lab Results 09/14/22 09/14/22 09/14/22 Range/Units 12:00 12:00 12:00 WBC 7.8 (4.8-10.8) X10*3/uL RBC 4.40 (4.20-5.50) X10*6/uL Hgb 14.0 (12.0-16.0) g/dl Hct 42.0 (37.0-47.0) % MCV 95.5 (80.0-98.0) fL MCH 31.8 (27.0-33.0) pg MCHC 33.3 (31.0-35.0) g/dl RDW 11.9 (11.0-16.0) % Plt Count 238 (160-400) X10*3/uL MPV 11.2 (9.4-12.3) fL Immature Gran % (Auto) 0.3 (0.0-0.4) % Neut % (Auto) 65.5 (45-73) % Lymph % (Auto) 26.5 (20-40) % [place] % (Auto) 6.1 (2-11) % Eos % (Auto) 1.2 (0-4) % Baso % (Auto) 0.4 (0-2) % Lymph # (Auto) 2.1 (1.2-4.9) X10*3/uL [place] # (Auto) 0.5 (0.1-1.2) X10*3/uL Eos # (Auto) 0.1 (0.0-0.4) X10*3/uL Baso # (Auto) 0.0 (0.0-0.2) X10*3/uL Abs Immat Gran (auto) 0.02 (0.00-0.03) X10*3/uL Absolute Neuts (auto) 5.1 (2.0-8.3) x10*3/uL Absolute Nucleated RBC 0.000 (0.0-0.012) X10*3/uL Nucleated RBC % (auto) 0.0 (0.0-0.2) /100WBC ESR (0-20) MM/HR Sodium 139 (135-145) mmol/L Potassium 4.4 (3.3-5.1) mmol/L Chloride 106 (96-108) mmol/L Carbon Dioxide 26 (22-29) mmol/L Anion Gap 11 L (12-20) BUN 13 (9-16) mg/dL Creatinine 0.88 (0.5-1.4) mg/dL Estim Creat Clear Calc 77.5 Estimated GFR > 60 Random Glucose 99 (60-115) mg/dL Calcium 9.2 (8.4-10.2) mg/dL Total Bilirubin 0.4 (0.0-1.0) mg/dL Direct Bilirubin < 0.2 (0.0-0.5) mg/dL AST 18 (5-31) U/L ALT 15 (0-31) U/L Alkaline Phosphatase 33 L (39-117) U/L Troponin I High Sens < 3.5 (<3.5-17.0) ng/L Total Protein 7.1 (6.5-8.0) g/dL Albumin 4.2 (3.5-5.0) g/dL TSH 1.95 (0.32-4.0) uIU/mL Urine Color Urine Appearance Urine pH (5.0-9.0) Ur Specific [place] (1.005-1.025) Urine Protein (Neg-Trace) mg/dL Urine Glucose (UA) (Negative) mg/dL Urine Ketones (Negative) mg/dL Urine Blood (Negative) Urine Nitrite (Negative) Ur Leukocyte Esterase (Negative) Urine RBC (0-2) /HPF Urine WBC (0-5) /HPF Ur Squamous Epith Cells (0-2) /HPF Urine Bacteria (None Seen) Hyaline Casts (0-2) /LPF Urine Test (NEGATIVE) 09/14/22 09/14/22 09/14/22 Range/Units 12:00 12:19 12:19 WBC (4.8-10.8) X10*3/uL RBC (4.20-5.50) X10*6/uL Hgb (12.0-16.0) g/dl Hct (37.0-47.0) % MCV (80.0-98.0) fL MCH (27.0-33.0) pg MCHC (31.0-35.0) g/dl RDW (11.0-16.0) % Plt Count (160-400) X10*3/uL MPV (9.4-12.3) fL Immature Gran % (Auto) (0.0-0.4) % Neut % (Auto) (45-73) % Lymph % (Auto) (20-40) % [place] % (Auto) (2-11) % Eos % (Auto) (0-4) % Baso % (Auto) (0-2) % Lymph # (Auto) (1.2-4.9) X10*3/uL [place] # (Auto) (0.1-1.2) X10*3/uL Eos # (Auto) (0.0-0.4) X10*3/uL Baso # (Auto) (0.0-0.2) X10*3/uL Abs Immat Gran (auto) (0.00-0.03) X10*3/uL Absolute Neuts (auto) (2.0-8.3) x10*3/uL Absolute Nucleated RBC (0.0-0.012) X10*3/uL Nucleated RBC % (auto) (0.0-0.2) /100WBC ESR 5 (0-20) MM/HR Sodium (135-145) mmol/L Potassium (3.3-5.1) mmol/L Chloride (96-108) mmol/L Carbon Dioxide (22-29) mmol/L Anion Gap (12-20) BUN (9-16) mg/dL Creatinine (0.5-1.4) mg/dL Estim Creat Clear Calc Estimated GFR Random Glucose (60-115) mg/dL Calcium (8.4-10.2) mg/dL Total Bilirubin (0.0-1.0) mg/dL Direct Bilirubin (0.0-0.5) mg/dL AST (5-31) U/L ALT (0-31) U/L Alkaline Phosphatase (39-117) U/L Troponin I High Sens (<3.5-17.0) ng/L Total Protein (6.5-8.0) g/dL Albumin (3.5-5.0) g/dL TSH (0.32-4.0) uIU/mL Urine Color Dark Yellow Urine Appearance Cloudy Urine pH 5.0 (5.0-9.0) Ur Specific [place] >= 1.030 H (1.005-1.025) Urine Protein 30 (1+) H (Neg-Trace) mg/dL Urine Glucose (UA) Negative (Negative) mg/dL Urine Ketones 15 (Negative) mg/dL Urine Blood Trace H (Negative) Urine Nitrite Negative (Negative) Ur Leukocyte Esterase Small (1+) H (Negative) Urine RBC 6-10 H (0-2) /HPF Urine WBC 21-50 H (0-5) /HPF Ur Squamous Epith Cells 6-10 (0-2) /HPF Urine Bacteria 4+ (None Seen) Hyaline Casts 0-2 (0-2) /LPF Urine Test NEGATIVE (NEGATIVE) <Lolly Figueroa NP - Last Filed: 09/14/22 11:49> Lab Results 09/14/22 09/14/22 09/14/22 Range/Units 12:00 12:00 12:00 WBC 7.8 (4.8-10.8) X10*3/uL RBC 4.40 (4.20-5.50) X10*6/uL Hgb 14.0 (12.0-16.0) g/dl Hct 42.0 (37.0-47.0) % MCV 95.5 (80.0-98.0) fL MCH 31.8 (27.0-33.0) pg MCHC 33.3 (31.0-35.0) g/dl RDW 11.9 (11.0-16.0) % Plt Count 238 (160-400) X10*3/uL MPV 11.2 (9.4-12.3) fL Immature Gran % (Auto) 0.3 (0.0-0.4) % Neut % (Auto) 65.5 (45-73) % Lymph % (Auto) 26.5 (20-40) % [place] % (Auto) 6.1 (2-11) % Eos % (Auto) 1.2 (0-4) % Baso % (Auto) 0.4 (0-2) % Lymph # (Auto) 2.1 (1.2-4.9) X10*3/uL [place] # (Auto) 0.5 (0.1-1.2) X10*3/uL Eos # (Auto) 0.1 (0.0-0.4) X10*3/uL Baso # (Auto) 0.0 (0.0-0.2) X10*3/uL Abs Immat Gran (auto) 0.02 (0.00-0.03) X10*3/uL Absolute Neuts (auto) 5.1 (2.0-8.3) x10*3/uL Absolute Nucleated RBC 0.000 (0.0-0.012) X10*3/uL Nucleated RBC % (auto) 0.0 (0.0-0.2) /100WBC ESR (0-20) MM/HR Sodium 139 (135-145) mmol/L Potassium 4.4 (3.3-5.1) mmol/L Chloride 106 (96-108) mmol/L Carbon Dioxide 26 (22-29) mmol/L Anion Gap 11 L (12-20) BUN 13 (9-16) mg/dL Creatinine 0.88 (0.5-1.4) mg/dL Estim Creat Clear Calc 77.5 Estimated GFR > 60 Random Glucose 99 (60-115) mg/dL Calcium 9.2 (8.4-10.2) mg/dL Total Bilirubin 0.4 (0.0-1.0) mg/dL Direct Bilirubin < 0.2 (0.0-0.5) mg/dL AST 18 (5-31) U/L ALT 15 (0-31) U/L Alkaline Phosphatase 33 L (39-117) U/L Troponin I High Sens < 3.5 (<3.5-17.0) ng/L Total Protein 7.1 (6.5-8.0) g/dL Albumin 4.2 (3.5-5.0) g/dL TSH 1.95 (0.32-4.0) uIU/mL Urine Color Urine Appearance Urine pH (5.0-9.0) Ur Specific [place] (1.005-1.025) Urine Protein (Neg-Trace) mg/dL Urine Glucose (UA) (Negative) mg/dL Urine Ketones (Negative) mg/dL Urine Blood (Negative) Urine Nitrite (Negative) Ur Leukocyte Esterase (Negative) Urine RBC (0-2) /HPF Urine WBC (0-5) /HPF Ur Squamous Epith Cells (0-2) /HPF Urine Bacteria (None Seen) Hyaline Casts (0-2) /LPF Urine Test (NEGATIVE) 09/14/22 09/14/22 09/14/22 Range/Units 12:00 12:19 12:19 WBC (4.8-10.8) X10*3/uL RBC (4.20-5.50) X10*6/uL Hgb (12.0-16.0) g/dl Hct (37.0-47.0) % MCV (80.0-98.0) fL MCH (27.0-33.0) pg MCHC (31.0-35.0) g/dl RDW (11.0-16.0) % Plt Count (160-400) X10*3/uL MPV (9.4-12.3) fL Immature Gran % (Auto) (0.0-0.4) % Neut % (Auto) (45-73) % Lymph % (Auto) (20-40) % [place] % (Auto) (2-11) % Eos % (Auto) (0-4) % Baso % (Auto) (0-2) % Lymph # (Auto) (1.2-4.9) X10*3/uL [place] # (Auto) (0.1-1.2) X10*3/uL Eos # (Auto) (0.0-0.4) X10*3/uL Baso # (Auto) (0.0-0.2) X10*3/uL Abs Immat Gran (auto) (0.00-0.03) X10*3/uL Absolute Neuts (auto) (2.0-8.3) x10*3/uL Absolute Nucleated RBC (0.0-0.012) X10*3/uL Nucleated RBC % (auto) (0.0-0.2) /100WBC ESR 5 (0-20) MM/HR Sodium (135-145) mmol/L Potassium (3.3-5.1) mmol/L Chloride (96-108) mmol/L Carbon Dioxide (22-29) mmol/L Anion Gap (12-20) BUN (9-16) mg/dL Creatinine (0.5-1.4) mg/dL Estim Creat Clear Calc Estimated GFR Random Glucose (60-115) mg/dL Calcium (8.4-10.2) mg/dL Total Bilirubin (0.0-1.0) mg/dL Direct Bilirubin (0.0-0.5) mg/dL AST (5-31) U/L ALT (0-31) U/L Alkaline Phosphatase (39-117) U/L Troponin I High Sens (<3.5-17.0) ng/L Total Protein (6.5-8.0) g/dL Albumin (3.5-5.0) g/dL TSH (0.32-4.0) uIU/mL Urine Color Dark Yellow Urine Appearance Cloudy Urine pH 5.0 (5.0-9.0) Ur Specific [place] >= 1.030 H (1.005-1.025) Urine Protein 30 (1+) H (Neg-Trace) mg/dL Urine Glucose (UA) Negative (Negative) mg/dL Urine Ketones 15 (Negative) mg/dL Urine Blood Trace H (Negative) Urine Nitrite Negative (Negative) Ur Leukocyte Esterase Small (1+) H (Negative) Urine RBC 6-10 H (0-2) /HPF Urine WBC 21-50 H (0-5) /HPF Ur Squamous Epith Cells 6-10 (0-2) /HPF Urine Bacteria 4+ (None Seen) Hyaline Casts 0-2 (0-2) /LPF Urine Test NEGATIVE (NEGATIVE) <Madison Irvin DO - Last Filed: 09/14/22 14:58> Independent Interpretation I performed an independent interpretation of an: EKG <Madison Irvin DO - Last Filed: 09/14/22 14:58> Interpretation: Rate: 69 Rhythm: NSR [place]: normal Normal P waves. Normal PASCUAL. Normal QRS complex. ST T wave : normal no MARIANNA qTC: normal prior studies: no acute ischemia The study has been interpreted contemporaneously by me. <Madison Irvin DO - Last Filed: 09/14/22 14:58> Discharge Plan Discharge Clinical Impression: Atypical chest pain, Worsening headaches <Lolly Figueroa NP - Last Filed: 09/14/22 11:49> Patient Disposition: Home, Self-Care <Lolly Figueroa NP - Last Filed: 09/14/22 11:49> Instructions: Chest Pain (ED), Acute Headache (ED) <Lolly Figueroa NP - Last Filed: 09/14/22 11:49> Additional Instructions: return to ED for any worsening symptoms or concerns CT head was negative, heart tests negative mild UTI please follow up with your doctor for further blood pressure monitoring <Lolly Figueroa NP - Last Filed: 09/14/22 11:49> Prescriptions: New nitrofurantoin monohyd/m-cryst [Macrobid] 100 mg capsule 100 mg PO Q12H 3 Days Qty: 6 0RF Rx Instructions: must administer with a meal/food No Action oxybutynin chloride 5 mg tablet 5 mg PO Q8-12H PRN (Reason: bladder spasms) 30 Days Qty: 90 6RF tamoxifen 20 mg tablet 20 mg PO DAILY Qty: 90 4RF Mirena 20 mcg/24 hours (7 yrs) 52 mg intrauterine device 52 device intrauterine DIRECTED albuterol sulfate [Ventolin HFA] 90 mcg/actuation HFA aerosol inhaler 2 puff inhalation Q6H PRN (Reason: Wheezing) Flarex 0.1 % drops,suspension 0.1 drp ophthalmic (eye) DAILY alprazolam 0.5 mg tablet 0.5 mg PO DAILY PRN (Reason: Anxiety) fluticasone propionate [Allergy Relief (fluticasone)] 50 mcg/actuation spray,suspension 1 spray intranasal DAILY Rx Instructions: administer into each nostril loratadine [Allergy Relief (loratadine)] 10 mg tablet 10 mg PO DAILY levetiracetam [Keppra] 750 mg tablet 750 mg PO BID Flovent HFA 110 mcg/actuation HFA aerosol inhaler 2 puff inhalation BID escitalopram oxalate [Lexapro] 10 mg tablet 10 mg PO DAILY <Lolly Figueroa NP - Last Filed: 09/14/22 11:49> Referrals: Jose Alejandro Nichols MD [Primary Care Provider] - 2 days <Lolly Figueroa NP - Last Filed: 09/14/22 11:49> Stand Alone Forms: Work/School Release <Lolly Figueroa NP - Last Filed: 09/14/22 11:49>
[2022-09-14 11:44] VITALS: BP 122/78; PULSE 79; RESP 16; TEMP 36.8; O2SAT 97; BMI 28.7
--- NOTE | 2022-09-14 11:46 | ECG_ITS ---
Test Reason : cp Blood Pressure : / mmHG Vent. Rate : 069 BPM Atrial Rate : 069 BPM P-R Int : 154 ms QRS Dur : 076 ms QT Int : 402 ms P-R-T Axes : 063 054 062 degrees QTc Int : 430 ms Normal sinus rhythm Normal ECG When compared with ECG of 15-MAY-2009 19:36, No significant change was found Referred By: Lolly Figueroa Electronically Signed By:HATTIE CORTEZ
[2022-09-14 12:05] LABS: MANUAL DIFF FLAG NO
[2022-09-14 12:08] LABS: Basophils Percent Auto 0.4 % (0-2); Eosinophils Absolute Auto 0.1 X10*3/uL (0.0-0.4); Eosinophils Percent Auto 1.2 % (0-4); Imm Gran Abs Auto 0.02 X10*3/uL (0.00-0.03); Imm Gran Pct Auto 0.3 % (0.0-0.4); Lymphocytes Absolute Auto 2.1 X10*3/uL (1.2-4.9); Lymphocytes Percent Auto 26.5 % (20-40); Mean Corpuscular HGB Conc 33.3 g/dl (31.0-35.0); Mean Corpuscular Hemoglobin 31.8 pg (27.0-33.0); Mean Corpuscular Volume 95.5 fL (80.0-98.0); Mean Platelet Volume 11.2 fL (9.4-12.3); Monocytes Absolute Auto 0.5 X10*3/uL (0.1-1.2); Monocytes Percent Auto 6.1 % (2-11); Neutrophils Absolute Auto 5.1 x10*3/uL (2.0-8.3); Neutrophils Percent Auto 65.5 % (45-73); Platelet Count 238 X10*3/uL (160-400); Red Cell Distribution Width 11.9 % (11.0-16.0); White Blood Count 7.8 X10*3/uL (4.8-10.8)
[2022-09-14 12:22] LABS: Alanine Aminotransferase 15 U/L (0-31); Albumin Level 4.2 g/dL (3.5-5.0); Alkaline Phosphatase 33 U/L (39-117); Anion Gap 11 (12-20); Aspartate Amino Transferase 18 U/L (5-31); Bilirubin Direct < 0.2 mg/dL (0.0-0.5); Bilirubin Total 0.4 mg/dL (0.0-1.0); Blood Urea Nitrogen 13 mg/dL (9-16); Calcium 9.2 mg/dL (8.4-10.2); Carbon Dioxide 26 mmol/L (22-29); Chloride 106 mmol/L (96-108); Creatinine Clr Calc Pharmacy 77.5; Estimated Glomerular Filt Rate > 60; Glucose Random 99 mg/dL (60-115); Potassium 4.4 mmol/L (3.3-5.1); Sodium 139 mmol/L (135-145); Total Protein 7.1 g/dL (6.5-8.0)
[2022-09-14 12:26] LABS: Troponin-I High Sensitivity < 3.5 ng/L (<3.5-17.0)
[2022-09-14 12:26] LABS: Appearance Urine Cloudy; Color Urine Dark Yellow; Glucose Urine UA Negative (Negative); Leukocyte Esterase Urine Small (1+) (Negative); Nitrite Urine Negative (Negative); Specific Gravity - Urine >= 1.030 (1.005-1.025); UMIC TRIGGER UACC YES; Urine Blood Trace (Negative); Urine Ketones 15 mg/dL (Negative); Urine Protein 30 (1+) mg/dL (Neg-Trace)
[2022-09-14 12:28] LABS: UPreg QC Valid YES; Urine Pregnancy NEGATIVE (NEGATIVE)
[2022-09-14 12:33] LABS: Bacteria Urine 4+ (None Seen); Hyaline Casts Urine 0-2 /LPF (0-2); UACC Culture Trigger YES; WBC Urine 21-50 /HPF (0-5)
[2022-09-14 13:22] VITALS: BP 131/80; PULSE 79; RESP 16; O2SAT 100
[2022-09-14 14:12] LABS: TSH reflex Free T4 1.95 uIU/mL (0.32-4.0)
[2022-09-14 14:27] LABS: Erythrocyte Sedimentation Rate 5 MM/HR (0-20)
[2022-09-14 15:01] VITALS: BP 122/79; PULSE 76; RESP 14; O2SAT 97
== END 2022-09-14 16:58 | disposition home or self-care (01) ==
PROVIDERS: Nurse Practitioner Family; Emergency Provider Emergency Medicine; PCP Internal Medicine
DX: R07.89 Other chest pain (principal); R51.9 Headache, unspecified; Z79.899 Other long term (current) drug therapy
CPT/HCPCS: 36415; 70450; 71046; 80048; 80076; 81001; 81025; 84443; 84484; 85025; 85652; 87086; 93005; 99284

== ENCOUNTER 2022-12-14 14:27 | Outpatient (REF) | payer OTHER, SELFPAY | END 2022-12-14 14:28 | disposition home or self-care (01) | LOC: HO.LNP 14:27 | PROVIDERS: PCP Internal Medicine; Visit Provider Advanced Practice Midwife | DX: N89.8 Other specified noninflammatory disorders of vagina (principal); Z97.5 Presence of (intrauterine) contraceptive device | CPT/HCPCS: 99212 ==

== ENCOUNTER 2022-12-14 15:44 | Outpatient (REF) | payer OTHER, SELFPAY ==
[2022-12-14 18:00] LABS: CT PCR NOT DETECTED (Not Detect.); NG PCR NOT DETECTED (Not Detect.)
[2022-12-15 10:57] LABS: BV Int Neg Control Negative (Negative); BV Int Pos Control Positive (Positive)
[2022-12-16 04:09] LABS: Syphilis Screen Nonreactive (Nonreactive)
[2022-12-16 04:34] LABS: HBsAGNum1 0.27 S/CO (0.00-0.99); HIV AB/AG Nonreactive (Nonreactive); HIV Num 1 0.06 S/CO (0.00-0.99); Hepatitis B Surface Antigen Negative (Negative); ~HepC Num1 0.12 S/CO (0.00-0.79); ~Hepatitis C Antibody Nonreactive (Nonreactive)
== END 2022-12-14 15:45 | disposition home or self-care (01) ==
LOC: HO.LAB 15:44
PROVIDERS: PCP Physician Assistant; Visit Provider Advanced Practice Midwife
DX: Z11.4 Encounter for screening for human immunodeficiency virus [HIV] (principal); Z11.3 Encounter for screening for infections with a predominantly sexual mode of transmission; N89.8 Other specified noninflammatory disorders of vagina; Z97.5 Presence of (intrauterine) contraceptive device
CPT/HCPCS: 0353U; 86780; 86803; 87340; 87389; 87480; 87510; 87660

== ENCOUNTER 2023-01-25 10:33 | Outpatient (REF) | payer OTHER, SELFPAY ==
[2023-01-25 14:29] LABS: CT PCR NOT DETECTED (Not Detect.); NG PCR NOT DETECTED (Not Detect.)
[2023-01-26 09:55] LABS: BV Int Neg Control Negative (Negative); BV Int Pos Control Positive (Positive)
== END 2023-01-25 10:34 | disposition home or self-care (01) ==
LOC: HO.LNP 10:33
PROVIDERS: PCP Physician Assistant; Visit Provider Advanced Practice Midwife
DX: Z11.3 Encounter for screening for infections with a predominantly sexual mode of transmission (principal); A59.9 Trichomoniasis, unspecified; Z98.890 Other specified postprocedural states
CPT/HCPCS: 0353U; 87480; 87510; 87660; 99212

== ENCOUNTER 2023-07-03 09:48 | Outpatient (REF) | payer OTHER, SELFPAY ==
--- NOTE | ~2023-07-03 | MM_ITS ---
EXAMINATION: MM SCREENING DIGITAL BREAST TOMOSYNTHESIS, BILATERAL WITH BILATERAL BREAST IMPLANTS. CLINICAL INFORMATION: Screening. Asymptomatic. COMPARISON: Mammography: This study is compared to the prior examinations dating back to 2019. TECHNIQUE: Digital mammography is performed in craniocaudal and mediolateral oblique views along with computer-aided detection (CAD). Digital breast tomosynthesis is performed in implant-displaced craniocaudal and implant-displaced mediolateral oblique views along with computer-aided detection (CAD). Synthesized 2D images are generated from the tomosynthesis. FINDINGS: The breasts are heterogeneously dense, which may obscure small masses (ACR BI-RADS breast composition Category c). There are bilateral, retropectoral, mammographically intact silicone breast implants. There are no significant masses, abnormal calcifications, or other abnormalities. MM/MM tomosynthesis screen imp BI IMPRESSION: There are no significant changes from prior study. ASSESSMENT: BI-RADS BI-RADS 1 - Negative RECOMMENDATION: Routine annual mammography screening. 1 year F/U This patient's information was entered into a reminder system with a target due date for their next mammogram.
== END 2023-07-03 09:49 | disposition home or self-care (01) ==
LOC: HO.MAMMO 09:48
PROVIDERS: PCP Internal Medicine; Visit Provider Physician Assistant
DX: Z12.31 Encounter for screening mammogram for malignant neoplasm of breast (principal)
CPT/HCPCS: 77063; 77067

== ENCOUNTER → 2023-07-03 10:00 | Outpatient (BNV) | payer OTHER, SELFPAY | PROVIDERS: PCP Internal Medicine; Visit Provider Radiology Diagnostic Radiology | DX: Z12.31 Encounter for screening mammogram for malignant neoplasm of breast (principal) | CPT/HCPCS: 77063; 77067 ==

== ENCOUNTER 2023-07-26 07:03 | Outpatient (REF) | payer OTHER, SELFPAY ==
[2023-07-26 07:20] LABS: MANUAL DIFF FLAG NO
[2023-07-26 07:46] LABS: Basophils Percent Auto 0.5 % (0-2); Eosinophils Absolute Auto 0.2 X10*3/uL (0.0-0.4); Eosinophils Percent Auto 2.7 % (0-4); Hematocrit 42.9 % (37.0-47.0); Hemoglobin 14.1 g/dl (12.0-16.0); Imm Gran Abs Auto 0.02 X10*3/uL (0.00-0.03); Imm Gran Pct Auto 0.3 % (0.0-0.4); Lymphocytes Absolute Auto 2.4 X10*3/uL (1.2-4.9); Lymphocytes Percent Auto 37.5 % (20-40); Mean Corpuscular HGB Conc 32.9 g/dl (31.0-35.0); Mean Corpuscular Volume 97.5 fL (80.0-98.0); Mean Platelet Volume 11.5 fL (9.4-12.3); Monocytes Absolute Auto 0.4 X10*3/uL (0.1-1.2); Monocytes Percent Auto 6.3 % (2-11); Neutrophils Absolute Auto 3.3 x10*3/uL (2.0-8.3); Neutrophils Percent Auto 52.7 % (45-73); Platelet Count 229 X10*3/uL (160-400); Red Cell Distribution Width 11.9 % (11.0-16.0); White Blood Count 6.3 X10*3/uL (4.8-10.8)
[2023-07-26 08:35] LABS: Alanine Aminotransferase 15 U/L (0-31); Alkaline Phosphatase 35 U/L (39-117); Anion Gap 12 (12-20); Aspartate Amino Transferase 19 U/L (5-31); Bilirubin Total 0.4 mg/dL (0.0-1.0); Blood Urea Nitrogen 11 mg/dL (9-16); Calcium 9.2 mg/dL (8.4-10.2); Carbon Dioxide 25 mmol/L (22-29); Chloride 111 mmol/L (96-108); Cholesterol 142 mg/dL (<200); Estimated Glomerular Filt Rate > 60; Glucose Random 99 mg/dL (60-115); HDL Cholesterol 56 mg/dL (>40); LDL Cholesterol Calculated 68 mg/dL (<100); Potassium 4.6 mmol/L (3.3-5.1); Sodium 143 mmol/L (135-145); Total Protein 7.1 g/dL (6.5-8.0); Triglycerides 94 mg/dL (<150)
[2023-07-26 08:46] LABS: Appearance Urine Clear; Color Urine Yellow; Glucose Urine UA Negative (Negative); Leukocyte Esterase Urine Negative (Negative); Nitrite Urine Negative (Negative); Specific Gravity - Urine >= 1.030 (1.005-1.025); UMIC TRIGGER UACC YES; Urine Blood Moderate (2+) (Negative); Urine Ketones Negative (Negative); Urine Protein Negative (Neg-Trace)
[2023-07-26 08:52] LABS: TSH reflex Free T4 3.14 uIU/mL (0.32-4.0); Vitamin D 25-OH Total 25.2 ng/mL (>30)
[2023-07-26 09:00] LABS: Bacteria Urine 3+ (None Seen); Hyaline Casts Urine 0-2 /LPF (0-2); UACC Culture Trigger YES
== END 2023-07-26 07:04 | disposition home or self-care (01) ==
LOC: HO.LAB 07:03
PROVIDERS: PCP Internal Medicine; Visit Provider Internal Medicine
DX: Z00.00 Encounter for general adult medical examination without abnormal findings (principal); E55.9 Vitamin D deficiency, unspecified; F33.0 Major depressive disorder, recurrent, mild; G43.009 Migraine without aura, not intractable, without status migrainosus; N30.10 Interstitial cystitis (chronic) without hematuria
CPT/HCPCS: 36415; 80053; 80061; 81001; 82306; 84443; 85025; 87086

== ENCOUNTER 2023-07-29 09:10 | Outpatient (REF) | payer OTHER, SELFPAY ==
--- NOTE | ~2023-07-29 | XR_ITS ---
EXAMINATION: XR LUMBOSACRAL SPINE CLINICAL INFORMATION: Muscle weakness COMPARISON: 01/28/2016 TECHNIQUE: Three views of the lumbosacral spine. FINDINGS: Slight rightward curvature of the lumbar spine. IUD in the pelvis. Lumbar vertebral body heights are preserved. Facet arthritis in the lower lumbar spine. Redemonstration of mild loss of disc space height at L5-S1. XR/XR lumbar spine 2-3V IMPRESSION: Redemonstration of mild changes at L5-S1.
[2023-07-31 13:21] LABS: H Pylori Breath Test Negative (Negative)
[2023-08-03 21:17] LABS: CK-BB None Detected (None Detected); CK-MB 0 % (<5); CK-MM 100 % (95-100); Creatine Kinase,Total,Serum 57 U/L (29-143)
== END 2023-07-29 09:11 | disposition home or self-care (01) ==
LOC: HO.LAB 09:10
PROVIDERS: Nurse Practitioner; Visit Provider Nurse Practitioner Primary Care
DX: R10.9 Unspecified abdominal pain (principal); R11.0 Nausea; R14.0 Abdominal distension (gaseous); M62.81 Muscle weakness (generalized); Z83.719 Family history of colon polyps, unspecified
CPT/HCPCS: 36415; 72100; 82552; 83013; 84443; 86140; 99202

== ENCOUNTER 2023-07-29 09:51 | Outpatient (AMB) | payer OTHER, SELFPAY ==
--- NOTE | 2023-07-29 09:57 | MHC.OFFVIS ---
Intake Vital Signs 07/29/23 10:00 Height 5 ft 3 in Weight 170 lb 10.205 oz BMI 30.2 BP 125/74 Blood Pressure Location Lt brachial Position Sitting Pulse 78 Intake Visit Reasons: [place] Screening, Family Hx of Malignancy Intake Note: Patient presents to in office visit today as a new patient for colonoscopy screening. CC: Patient reports ongoing nausea, and abdominal bloating. She also reports family hx of gastric cancer from her mother side. Denies other GI symptoms today. Quality Cloth Tester Required: No Accompanied by: Self / Same As Patient Allergies cat dander Allergy (Severe, Verified 07/29/23 11:47) Anaphylaxis Gadolinium-Containing Contrast Medi [GADOLINIUM-CONTAINING CONTRAST] Allergy (Severe, Verified 07/29/23 10:03) SHORTNESS OF BREATH acetaminophen [Percocet] Allergy (Intermediate, Verified 07/29/23 10:03) Itching fluoxetine [From PROZAC] Allergy (Intermediate, Verified 07/29/23 10:03) PALPITATIONS oxycodone [Percocet] Allergy (Intermediate, Verified 07/29/23 10:03) Palpitations paroxetine [Paxil] Allergy (Intermediate, Verified 07/29/23 10:03) Palpitations divalproex sodium [From Depakote] Adverse Reaction (Intermediate, Verified 07/29/23 11:48) Tremor topiramate [From Topamax] Adverse Reaction (Intermediate, Verified 07/29/23 11:47) Clouded mentation diphenhydramine [From Benadryl] Adverse Reaction (Unknown, Verified 07/29/23 11:49) Lower seizure threshold HPI [place] Screening, Family Hx of Malignancy HPI Details 47-year-old female here for preprocedural meeting to discuss a screening colonoscopy. She is referred by Dr. Wilson of our Oncology Department but her primary care provider is Ignacia Karimi of [facility]. PMX Migraine - really below Epilepsy - complex partial seizures at night controlled with keppra and alprazolam Interstitial cystitis Endometriosis Allergic rhinitis Insomnia/night terrors/anxiety IBS - pt denies was IC Microscopic hematuria History of postoperative nausea and vomiting Post Covid airway disease * SURGICAL HISTORY Hydrodistention of the bladder - yearly Left ovarian and fallopian tube removed LEEP procedure History of left breast augmentation * ALLERGIES Benadryl - seizure threshold Gadolinium contrast Cats - anaphylaxis Depakote - tremors Topamax - clouded mentation Prozac - palpitations * [place] LABS: Laboratory Tests 12/14/22 07/26/23 15:57 07:19 WBC 6.3 Hgb 14.1 Hct 42.9 Plt Count 229 Estimated GFR > 60 Total Bilirubin 0.4 AST 19 ALT 15 Alkaline Phosphata se 35 L TSH 3.14 Hep Bs Antigen Negative Hepatitis C Ab (EI A) Nonreactive HIV 1&2 Ab/P24 Ag 4thGn Nonreactive TODAY'S VISIT . This is her first scope. She e says she was referred here by her oncologist who she follows because she has a genetic screening showing she is at high risk for breast cancer in she is pre treating this with tamoxifen. Recent rectal discomfort she thinks may be hemorrhoid, new (on examination it is a swollen column at 09:00 o'clock) her bowels have been generally softer. She has on going pain in the gastric area described as an ache like when you spend a day or 2 vomiting, and she has frequent nausea. This has been a problem for 1 month ago. This was of sudden onset. No new meds, diet changes, sick contacts with this. She avoids milk us she feels like it makes her symptoms worst which may be a bit of lactose intolerance. She has trouble swallowing her saliva intermittently, but not with eating. She has a lot of bloating. The pain does not move or radiate. (she had some sudden leg weariness and recent lumbar xrays). The she has had to eliminate a lot of foods from her diet because of her interstitial cystitis not so much because of her GI symptoms. She has some chronic lower abdominal pain from her is interstitial cystitis. She also experiences nausea post ictally. The pain is there constantly and is not effected by eating or BM. She can not ID exacerbating/remitting problems except palpation. She has had N/V post operatively, and her mother was allergic to anesthesia or she would go into cardiac arrest, no other problems known. She does not know of her mother's problem was malignant hypertension since it was diagnosed in [place]. Her resp problems are currently well controlled, no cardiac problems except hx of PVC's. Her epilepsy manifests as complex partial seizures only when she sleeps that contribute to her night terrors an a.m. headache. She says that this is well controlled on Keppra and her benzodiazepine. No ID problems. Her brother had colon polyps, and her mother had stomach cancer (71) and breast age (40's). Will get HP breath test and order scopes. She dislikes taking medicines until I know a cause. She says her sister had H pylori. She was educated H pylori is the most common cause of ulcer disease and gastric cancer so this will be important screening to get in order to determine if she needs to be treated as quickly as possible. Obviously this would offer her symptomatic relief as well. I will plan on seeing her after the procedures unless the H pylori breath test comes back positive. If this happens we will treat her and then bring her back for follow-up to evaluate her response and to retest for eradication. [facility] Medical History (Updated 09/03/23 @ 15:28 by ANDRE Mays) H/O sigmoidoscopy COVID-19 PONV (postoperative nausea and vomiting) Migraine Endometriosis determined by laparoscopy Sleep terror 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 Endometriosis Surgical History History of left oophorectomy (~2019) History of elective breast augmentation (~2019) History of loop electrical excision procedure (LEEP) Family History Mother History of gastric cancer Breast cancer Maternal Grandmother Ovarian cancer Uterine cancer Cervical cancer Paternal Grandmother Breast cancer Maternal Uncle Pancreatic cancer Maternal Aunt Pancreatic cancer Paternal Uncle Pancreatic cancer Social History Household Members: Family Housing: House Are you a primary childcare aide to a significant other at home: Yes (dad) Do you presently have visiting nurse or other home services: No Alcohol intake: current Alcohol intake frequency: holidays/special occasions only Patient Tobacco Use Status: Never used Tobacco Second Hand Smoke Exposure: No service: No Current occupational status: other Gender identity: Female Female Reproductive History Menstrual Age of Menarche: 13 Review of Systems Const Denies fatigue, Denies fever(s), Reports headache(s), Denies night sweats, Reports poor appetite and Denies weight loss Eyes Details: glasses Reports requires corrective lenses ENT Reports Normal hearing present, Denies dental pain, Reports dysphagia, Reports headache(s), Denies hearing loss, Denies mouth pain, Denies odynophagia, Denies throat swelling, Denies tongue swelling and Reports other (Dentition adequate) Card Reports no additional complaints Resp Reports no additional complaints GI Reports abdominal pain, Denies melena, Reports bloating, Denies hematochezia, Denies constipation, Denies GI cramping, Reports dysphagia, Denies excessive flatus, Denies early satiety, Reports heartburn, Denies diarrhea, Reports nausea, Denies odynophagia, Reports vomiting and Denies hematemesis Skin/Breast Denies pruritus, Denies lesions, Denies rash and Denies jaundice Neuro Reports Normal hearing present, Denies Abnormal speech present, Reports headache(s) and Reports seizure-like activity Endo Denies fatigue Aller/Immun Denies throat swelling and Denies tongue swelling Physical Exam Vital Signs: Last Vital Signs Pulse 78 07/29/23 10:00 BP 125/74 07/29/23 10:00 BMI result Body Mass Index 30.2 Const General: cooperative, no acute distress, well developed and well groomed Nutritional Appearance: well nourished and obese Orientation/consciousness: oriented to person, oriented to place and oriented to time Limitations: No language barrier HEENT Head: Yes normocephalic and Yes atraumatic Eyes General: appearance normal, both eyes and all related structures Pupils: Equal, round and reactive pupils present Neck Neck: Yes normal visual inspection and Yes no lymphadenopathy Thyroid: Thyroid normal Resp Effort & Inspection: normal respiratory effort and able to speak in complete sentences Auscultation: clear to auscultation bilaterally Cardio Rate: regular rate Rhythm: regular rhythm Heart sounds: Normal, physiologic split S2 sound present Peripheral pulses: radial pulses present and posterior tibial pulses present GI Inspection: No distended, No Abdominal panniculus present and Yes obesity Palpation (GI): Soft to palpation, nontender, no guarding, not rigid and No hepatosplenomegaly present Percussion: Yes normal to percussion Auscultation: normal bowel sounds Rectal Exam - Female: deferred Skin General skin exam: no rashes or lesions noted, turgor normal, skin not dry, no jaundice, No spider nevi and no striae Rashes: no rashes Nails: normal Neuro General: oriented to person, oriented to place and oriented to time Cranial nerves: Yes Equal, round and reactive pupils present and Yes Normal hearing present Speech: No Abnormal speech present Extrem General: Yes normal to inspection, No clubbing, No cyanosis and No edema Psych Appearance: grossly normal and well kempt Mental Status: mental status grossly normal Speech and movement: Normal speech and movement present Affect: normal affect Attitude: cooperative Thought process: Normal thought process present and not confabulating Thought content: Normal thought content present Insight: Limited insight present (Psych) Judgement: Limited judgement present (Psych) Assessment & Plan Assessment & Plan (1) Gastric pain: Code(s): R10.9 - Unspecified abdominal pain (2) Abdominal bloating: Code(s): R14.0 - Abdominal distension (gaseous) (3) Nausea: Code(s): R11.0 - Nausea (4) Family history of polyps in the colon: Code(s): Z83.719 - Family history of colon polyps, unspecified (5) Pre-op examination: Code(s): Z01.818 - Encounter for other preprocedural examination Orders: Orders US abdomen complete 07/29/23 R10.9 - Unspecified abdominal pain, R14.0 - Abdominal distension (gaseous) H Pylori Breath Test 07/29/23 Z83.719 - Family history of colon polyps, unspecified, R10.9 - Unspecified abdominal pain, R11.0 - Nausea, R14.0 - Abdominal distension (gaseous) EGD/[place] Combo - GI Use Only 07/29/23 R10.9 - Unspecified abdominal pain, R11.0 - Nausea, R14.0 - Abdominal distension (gaseous) Medications: New peg 3350-electrolytes 236-22.74-6.74 -5.86 gram (Golytely) until fecal effluent is clear; do not exceed a total volume of 2,000 mL 240 mL PO Q10M 4,000 mL 0RF 1 day Z12.11 - Encounter for screening for malignant neoplasm of colon Patient Instructions: This is her first scope. She e says she was referred here by her oncologist who she follows because she has a genetic screening showing she is at high risk for breast cancer in she is pre treating this with tamoxifen. Recent rectal discomfort she thinks may be hemorrhoid, new (on examination it is a swollen column at 09:00 o'clock) her bowels have been generally softer. She has on going pain in the gastric area described as an ache like when you spend a day or 2 vomiting, and she has frequent nausea. This has been a problem for 1 month ago. This was of sudden onset. No new meds, diet changes, sick contacts with this. She avoids milk us she feels like it makes her symptoms worst which may be a bit of lactose intolerance. She has trouble swallowing her saliva intermittently, but not with eating. She has a lot of bloating. The pain does not move or radiate. (she had some sudden leg weariness and recent lumbar xrays). The she has had to eliminate a lot of foods from her diet because of her interstitial cystitis not so much because of her GI symptoms. She has some chronic lower abdominal pain from her is interstitial cystitis. She also experiences nausea post ictally. The pain is there constantly and is not effected by eating or BM. She can not ID exacerbating/remitting problems except palpation. She has had N/V post operatively, and her mother was allergic to anesthesia or she would go into cardiac arrest, no other problems known. She does not know of her mother's problem was malignant hypertension since it was diagnosed in [place]. Her resp problems are currently well controlled, no cardiac problems except hx of PVC's. Her epilepsy manifests as complex partial seizures only when she sleeps that contribute to her night terrors an a.m. headache. She says that this is well controlled on Keppra and her benzodiazepine. No ID problems. Her brother had colon polyps, and her mother had stomach cancer (71) and breast age (40's). Will get HP breath test and order scopes. She dislikes taking medicines until I know a cause. She says her sister had H pylori. She was educated H pylori is the most common cause of ulcer disease and gastric cancer so this will be important screening to get in order to determine if she needs to be treated as quickly as possible. Obviously this would offer her symptomatic relief as well. I will plan on seeing her after the procedures unless the H pylori breath test comes back positive. If this happens we will treat her and then bring her back for follow-up to evaluate her response and to retest for eradication. Coding Level of Care Code New Pt Level 3 (60483) Diagnoses Gastric pain R10.9 Abdominal bloating R14.0 Nausea R11.0 Family history of polyps in the colon Z83.719 Pre-op examination Z01.818
[2023-07-29 10:00] VITALS: BP 125/74; PULSE 78; BMI 30.2
== END 2023-07-29 11:51 | disposition home or self-care (01) ==
PROVIDERS: PCP Physician Assistant; Visit Provider Nurse Practitioner
DX: R10.9 Unspecified abdominal pain (principal); R14.0 Abdominal distension (gaseous); R11.0 Nausea; Z83.719 Family history of colon polyps, unspecified; Z01.818 Encounter for other preprocedural examination
CPT/HCPCS: 99203

== ENCOUNTER 2023-12-03 08:13 | Outpatient (REF) | payer OTHER, SELFPAY ==
--- NOTE | ~2023-12-03 | US_ITS ---
EXAMINATION: US ABDOMEN COMPLETE CLINICAL INFORMATION: Unspecified abdominal pain. COMPARISON: CT abdomen and pelvis 02/22/2020. TECHNIQUE: Real-time imaging of the abdominal viscera. FINDINGS: PANCREAS Limited visualization due to bowel gas. ABDOMINAL AORTA: Unremarkable. INFERIOR VENA CAVA: Visualized portions are normal. LIVER: Limited visualization due to bowel gas and shadowing from ribs. Liver measures 13.4 cm. Liver is unremarkable in echogenicity. GALLBLADDER: No gallstones. No gallbladder wall thickening. COMMON BILE DUCT: Normal in caliber measuring 0.4 cm in diameter. RIGHT KIDNEY: No hydronephrosis. No renal calculi. Limited visualization. The kidney measures 10.1 cm in maximum dimension. LEFT KIDNEY: No hydronephrosis. No renal calculi. Limited visualization. The kidney measures 10.1 cm in maximum dimension. SPLEEN: Normal. The spleen measures 8.2 cm in maximum dimension. FREE FLUID: None. US/US abdomen complete IMPRESSION: Unremarkable exam.
== END 2023-12-03 08:14 | disposition home or self-care (01) ==
LOC: HO.US 08:13
PROVIDERS: PCP Internal Medicine; Visit Provider Nurse Practitioner
DX: R10.9 Unspecified abdominal pain (principal); R14.0 Abdominal distension (gaseous)
CPT/HCPCS: 76700

== ENCOUNTER 2024-01-13 00:57 | Emergency (ER) | payer OTHER, SELFPAY ==
--- NOTE | 2024-01-13 | ECG_ITS ---
Test Reason : syncopee Blood Pressure : / mmHG Vent. Rate : 087 BPM Atrial Rate : 087 BPM P-R Int : 156 ms QRS Dur : 078 ms QT Int : 366 ms P-R-T Axes : 066 054 065 degrees QTc Int : 440 ms Normal sinus rhythm Cannot rule out Anterior infarct , age undetermined Abnormal ECG When compared with ECG of 14-SEP-2022 11:53, No significant change was found Referred By: Generic ED Physician Electronically Signed By:Faisal Duarte
--- NOTE | ~2024-01-13 | CT_ITS ---
EXAMINATION: CT HEAD WITHOUT CONTRAST CT CERVICAL SPINE WITHOUT CONTRAST CLINICAL INFORMATION: Head and neck trauma COMPARISON: CT head from 09/14/2022 TECHNIQUE: CT of the head and cervical spine were performed without intravenous contrast. Multiplanar reformats were rendered and reviewed. This CT examination was performed using dose optimization techniques as appropriate, variously including the following: *Automated exposure control *Adjustment of mA and/or kV according to patient size (this includes techniques or standardized protocols for targeted exams where dose is matched to indication/reason for exam; i.e. extremities or head) *Use of iterative reconstruction technique DLP: 338 mGy- cm for cervical spine and 722 mGy-cm for head FINDINGS: CT head: No intracranial hemorrhage, large infarction, or mass lesion is seen. No extra-axial collection is appreciated. The ventricles are normal in size and configuration without evidence of hydrocephalus. The visualized paranasal sinuses and mastoid air cells are clear. CT cervical spine: The cervical alignment is normal. There is straightening of cervical lordosis and narrowing of C6-C7 intervertebral disc space, without spinal canal or foraminal stenosis The craniocervical junction is normal. The vertebral body heights are maintained. No cervical spine fracture is seen. The paraspinal soft tissues are within normal limits. The partially imaged lung apices are clear. CT/CT cervical spine wo IV con IMPRESSION: CT head: No acute intracranial finding. CT cervical spine: No cervical spine fracture or traumatic malalignment identified. Mild degenerative changes at the level of C6-C7
--- NOTE | ~2024-01-13 | CT_ITS ---
EXAMINATION: CT HEAD WITHOUT CONTRAST CT CERVICAL SPINE WITHOUT CONTRAST CLINICAL INFORMATION: Head and neck trauma COMPARISON: CT head from 09/14/2022 TECHNIQUE: CT of the head and cervical spine were performed without intravenous contrast. Multiplanar reformats were rendered and reviewed. This CT examination was performed using dose optimization techniques as appropriate, variously including the following: *Automated exposure control *Adjustment of mA and/or kV according to patient size (this includes techniques or standardized protocols for targeted exams where dose is matched to indication/reason for exam; i.e. extremities or head) *Use of iterative reconstruction technique DLP: 338 mGy- cm for cervical spine and 722 mGy-cm for head FINDINGS: CT head: No intracranial hemorrhage, large infarction, or mass lesion is seen. No extra-axial collection is appreciated. The ventricles are normal in size and configuration without evidence of hydrocephalus. The visualized paranasal sinuses and mastoid air cells are clear. CT cervical spine: The cervical alignment is normal. There is straightening of cervical lordosis and narrowing of C6-C7 intervertebral disc space, without spinal canal or foraminal stenosis The craniocervical junction is normal. The vertebral body heights are maintained. No cervical spine fracture is seen. The paraspinal soft tissues are within normal limits. The partially imaged lung apices are clear. CT/CT head/brain wo IV con IMPRESSION: CT head: No acute intracranial finding. CT cervical spine: No cervical spine fracture or traumatic malalignment identified. Mild degenerative changes at the level of C6-C7
[2024-01-13 01:04] VITALS: BP 145/96; PULSE 93; RESP 16; TEMP 36.9; O2SAT 97; BMI 31.7
[2024-01-13 01:27] LABS: MANUAL DIFF FLAG NO
[2024-01-13 01:29] LABS: Basophils Percent Auto 0.2 % (0-2); Eosinophils Absolute Auto 0.2 X10*3/uL (0.0-0.4); Eosinophils Percent Auto 2.4 % (0-4); Hematocrit 41.2 % (37.0-47.0); Hemoglobin 13.7 g/dl (12.0-16.0); Imm Gran Abs Auto 0.02 X10*3/uL (0.00-0.03); Imm Gran Pct Auto 0.2 % (0.0-0.4); Lymphocytes Absolute Auto 2.5 X10*3/uL (1.2-4.9); Lymphocytes Percent Auto 29.1 % (20-40); Mean Corpuscular HGB Conc 33.3 g/dl (31.0-35.0); Mean Corpuscular Hemoglobin 31.9 pg (27.0-33.0); Mean Corpuscular Volume 95.8 fL (80.0-98.0); Mean Platelet Volume 10.5 fL (9.4-12.3); Monocytes Absolute Auto 0.6 X10*3/uL (0.1-1.2); Monocytes Percent Auto 7.2 % (2-11); Neutrophils Absolute Auto 5.2 x10*3/uL (2.0-8.3); Neutrophils Percent Auto 60.9 % (45-73); Platelet Count 277 X10*3/uL (160-400); Red Cell Distribution Width 12.3 % (11.0-16.0); White Blood Count 8.5 X10*3/uL (4.8-10.8)
[2024-01-13 01:53] LABS: Troponin-I High Sensitivity < 2.7 ng/L (<3.5-17.0)
[2024-01-13 02:17] LABS: Alanine Aminotransferase 18 U/L (0-31); Albumin Level 3.9 g/dL (3.5-5.0); Alkaline Phosphatase 51 U/L (39-117); Anion Gap 10 (12-20); Aspartate Amino Transferase 19 U/L (5-31); Bilirubin Total 0.1 mg/dL (0.0-1.0); Blood Urea Nitrogen 21 mg/dL (9-16); Carbon Dioxide 27 mmol/L (22-29); Chloride 109 mmol/L (96-108); Creatinine Clr Calc Pharmacy 76.2; Estimated Glomerular Filt Rate > 60; Glucose Random 92 mg/dL (60-115); Potassium 4.2 mmol/L (3.3-5.1); Sodium 142 mmol/L (135-145); Total Protein 7.2 g/dL (6.5-8.0)
[2024-01-13 02:52] VITALS: BP 107/76; PULSE 74; RESP 16; TEMP 37.1; O2SAT 98
[2024-01-13 02:59] LABS: Appearance Urine Clear; Color Urine Yellow; Glucose Urine UA Negative (Negative); Leukocyte Esterase Urine Negative (Negative); Nitrite Urine Negative (Negative); PH 5.5 (5.0-9.0); Specific Gravity - Urine >= 1.030 (1.005-1.025); UMIC TRIGGER UACC YES; Urine Blood Small (1+) (Negative); Urine Ketones Negative (Negative); Urine Protein Negative (Neg-Trace)
[2024-01-13 03:01] LABS: UPreg QC Valid YES; Urine Pregnancy NEGATIVE (NEGATIVE)
[2024-01-13 03:42] LABS: Bacteria Urine None Seen (None Seen); Hyaline Casts Urine 0-2 /LPF (0-2); RBC Urine 0-2 /HPF (0-2); Squamous Epithelial Cell Urine 0-2 /HPF (0-2); WBC Urine 0-5 /HPF (0-5)
[2024-01-13 04:20] VITALS: BP 132/84; PULSE 76; RESP 16; TEMP 36.4; O2SAT 98
[2024-01-13 07:35] VITALS: BP 124/82; PULSE 69; RESP 18; O2SAT 99
--- NOTE | 2024-01-13 08:07 | ED.SYNCOPE ---
HPI - Syncope General Chief Complaint: Syncope Stated Complaint: ?Syncopal episode Time Seen by Provider: 01/13/24 07:38 Source: patient and old records reviewed Mode of arrival: ambulatory Limitations: no limitations History of Present Illness HPI narrative: 48 yo female with PMH seizures nighttime on keppra 1000mg BID and xanax for night terrors here with c/o having episode last night where she felt very nauseated (which is a seizure aura for her) then woke up on the bathroom floor she has a headache and head pressure denies body pain, tongue biting. Woke up very confused and reports possible stress could have triggered seizure event. She lost track of about 2 hours of her time. MD complaint: seizure Onset (ago): hour(s) (last night) Description of event: post-event confusion Prodromal symptoms: nausea/vomiting Witnessed: No Context: at rest and getting out of bed Injuries sustained associated with event: none Current symptoms: headache History: seizure disorder Treatments prior to arrival: none Related Data Home Medications ?Medication ?Instructions ?Recorded ?Confirmed alprazolam 0.5 mg tablet 0.5 mg PO DAILY night terrors 01/31/21 12/15/23 fluorometholone acetate 0.1 % eye 0.1 drp ophthalmic (eye) DAILY 01/31/21 12/15/23 drops,suspension albuterol sulfate 90 mcg/actuation 2 puff inhalation Q6H PRN Wheezing 02/03/21 12/15/23 aerosol inhaler (Ventolin HFA) fluticasone propionate 110 2 puff inhalation 1XD 02/17/22 12/15/23 mcg/actuation HFA aerosol inhaler (Flovent HFA) levonorgestrel 21 mcg/24 hours (8 52 device intrauterine DIRECTED 03/04/22 12/15/23 yrs) 52 mg intrauterine device (Mirena) fluticasone propionate 50 1 spray intranasal DAILY 04/15/22 12/15/23 mcg/actuation nasal spray,suspension (Allergy Relief (fluticasone)) loratadine 10 mg tablet (Allergy 10 mg PO DAILY PRN Allergy Symptoms 04/15/22 12/15/23 Relief (loratadine)) levetiracetam 1,000 mg tablet 1,000 mg PO BID 12/14/22 12/15/23 sumatriptan succinate 50 mg tablet 50 mg PO DAILY PRN Headache 12/14/22 12/15/23 (Imitrex) Previous Rx's ?Medication ?Instructions ?Recorded oxybutynin chloride 5 mg tablet 5 mg PO Q8-12H PRN bladder spasms 12/19/21 30 days #90 tabs bisacodyl 5 mg tablet,delayed 10 mg (2 x 5 mg) PO BEDTIME 2 days 10/06/23 release (Dulcolax (bisacodyl)) #4 tabs peg 3350-electrolytes 236 240 ml PO Q10M 1 day #4,000 mL 10/06/23 gram-22.74 gram-6.74 gram-5.86 gram solution (Golytely) ondansetron 4 mg disintegrating 4 mg PO Q8H PRN nausea and 01/13/24 tablet vomiting #20 tabs Allergies Allergy/AdvReac Type Severity Reaction Status Date / Time cat dander Allergy Severe Anaphylaxis Verified 12/15/23 14:55 Gadolinium-Containing Allergy Severe Anaphylaxis Verified 01/13/24 01:10 Contrast Medi [GADOLINIUM-CONTAINING CONTRAST] acetaminophen [Percocet] Allergy Intermediate Itching Verified 12/15/23 14:55 fluoxetine [From PROZAC] Allergy Intermediate PALPITATION Verified 12/15/23 14:55 S oxycodone [Percocet] Allergy Intermediate Palpitation Verified 12/15/23 14:55 s paroxetine [Paxil] Allergy Intermediate Palpitation Verified 12/15/23 14:55 s divalproex sodium AdvReac Intermediate Tremor Verified 12/15/23 14:55 [From Depakote] topiramate [From Topamax] AdvReac Intermediate Clouded Verified 12/15/23 14:55 mentation diphenhydramine AdvReac Unknown Lower Verified 12/15/23 14:55 [From Benadryl] seizure threshold Review of Systems Review of Systems: Constitutional : No Fever, No Chills, No Fatigue ENT/Mouth : No sore throat, No Rhinorrhea Eyes: No Eye Pain, No Swelling, No Redness Cardiovascular : No Chest Pain, No SOB, No Dyspnea on Exertion Respiratory : No Cough, No Sputum Gastrointestinal : pos Nausea, No Vomiting, No Diarrhea, No abdominal Pain Genitourinary : No Dysuria, No Urinary Frequency, No Hematuria, Musculoskeletal : No joint pain, No Myalgias, No Joint Swelling Skin : No Skin Lesions, No rash Neuro : No Weakness, No Numbness, No Dizziness, positive Headache, pos seizure Psych : No Anxiety/Panic, No Depression Heme/Lymph: No Bruising, No Bleeding,No Lymphadenopathy Endocrine : No Polyuria, No Polydipsia All other systems reviewed and are negative FOR[facility]LY [facility], [facility] Past Medical History Attestation statement: The following information was validated with the patient. 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 Endometriosis Surgical History History of left oophorectomy (~2019) History of elective breast augmentation (~2018) History of loop electrical excision procedure (LEEP) Family History Family History Mother History of gastric cancer Breast cancer Maternal Grandmother Ovarian cancer Uterine cancer Cervical cancer Paternal Grandmother Breast cancer Maternal Uncle Pancreatic cancer Maternal Aunt Pancreatic cancer Paternal Uncle Pancreatic cancer Social History Social History Household Members: Family Housing: House Are you a primary pharmacy care coordinator to a significant other at home: Yes (dad) Do you presently have visiting nurse or other home services: No Alcohol intake: current Alcohol intake frequency: does not drink Patient Tobacco Use Status: Never used Tobacco Smoked in Last 30 Days: No Second Hand Smoke Exposure: No Use of substances other than those prescribed or required for medical reasons: No Advance Directives: No Advance Directives Information Provided: Yes service: No Current occupational status: other Gender identity: Female Physical Exam Vital Signs: Vital Signs: Last Vital Signs Temp 97.6 F 01/13/24 04:20 Pulse 69 01/13/24 07:35 Resp 18 01/13/24 07:35 BP 124/82 01/13/24 07:35 Pulse Ox 99 01/13/24 07:35 O2 Del Method Room Air 01/13/24 07:35 BMI result Body Mass Index 31.7 Appearance: Alert. Oriented X3. No acute distress. Eyes: Pupils equal, round and reactive to light. ENT: Pharynx normal. atraumatic Neck: Normal inspection. Neck supple. CVS: Normal heart rate and rhythm. Pulses normal. Respiratory: No respiratory distress. Breath sounds normal. Abdomen: Soft and nontender. Skin: Skin warm and dry. Normal skin color. Normal skin turgor. Extremities: No lower extremity edema. No calf ttp Neuro: Oriented X 3. No motor deficit. No sensory deficit. Medications Administered Discontinued Medications Generic Name Dose Route Start Last Admin Trade Name Mony PRN Reason Stop Dose Admin Levetiracetam 1,000 mg 01/13/24 08:07 01/13/24 08:52 Levetiracetam 1,000 Mg Tablet PO 01/13/24 08:08 1,000 mg ONCE ONE Administration Ondansetron HCl 4 mg 01/13/24 08:07 01/13/24 08:52 Ondansetron Odt 4 Mg Tab.Rapdis TRANSLINGU 01/13/24 08:08 4 mg ONCE ONE Administration Medical Decision Making Medical Decision Making [facility] Narrative: 48 yo female with PMH of seizures on keppra 1000mg BID, night terrors here with c/o having nausea in the middle of the night then waking up on the bathroom floor she has amnesia to the event and lost 2 hours of time she now has headache she has no focal deficitis, no CP/SOB to suggest ACS or VTE. Nausea is a seizure aura for her. At this time will obtain EKG, trop x 2, CT head/neck for trauma given persistent pain, dose with her AM keppra and if workup negative I suspect that this is a seizure event given similar in past. Differential Diagnosis Differential Diagnoses: The differential diagnosis associated with the presentation includes syncope vs seizure Admission/Observation Consideration of admission/observation: Escalation of care including admission/observation considered work up negative GCS 15 stable for DC Lab Data [facility] Lab Attestation statement: I reviewed the patient's lab results. 01/13/24 01:24 01/13/24 01:24 Labs: Lab Results 01/13/24 01/13/24 01/13/24 Range/Units 01:24 02:51 08:00 WBC 8.5 (4.8-10.8) X10*3/uL RBC 4.30 (4.20-5.50) X10*6/uL Hgb 13.7 (12.0-16.0) g/dl Hct 41.2 (37.0-47.0) % MCV 95.8 (80.0-98.0) fL MCH 31.9 (27.0-33.0) pg MCHC 33.3 (31.0-35.0) g/dl RDW 12.3 (11.0-16.0) % Plt Count 277 (160-400) X10*3/uL MPV 10.5 (9.4-12.3) fL Immature Gran % (Auto) 0.2 (0.0-0.4) % Neut % (Auto) 60.9 (45-73) % Lymph % (Auto) 29.1 (20-40) % [place] % (Auto) 7.2 (2-11) % Eos % (Auto) 2.4 (0-4) % Baso % (Auto) 0.2 (0-2) % Lymph # (Auto) 2.5 (1.2-4.9) X10*3/uL [place] # (Auto) 0.6 (0.1-1.2) X10*3/uL Eos # (Auto) 0.2 (0.0-0.4) X10*3/uL Baso # (Auto) 0.0 (0.0-0.2) X10*3/uL Abs Immat Gran (auto) 0.02 (0.00-0.03) X10*3/uL Absolute Neuts (auto) 5.2 (2.0-8.3) x10*3/uL Absolute Nucleated RBC 0.000 (0.0-0.012) X10*3/uL Nucleated RBC % (auto) 0.0 (0.0-0.2) /100WBC Sodium 142 (135-145) mmol/L Potassium 4.2 (3.3-5.1) mmol/L Chloride 109 H (96-108) mmol/L Carbon Dioxide 27 (22-29) mmol/L Anion Gap 10 L (12-20) BUN 21 H (9-16) mg/dL Creatinine 0.92 (0.5-1.4) mg/dL Estim Creat Clear Calc 76.2 Estimated GFR > 60 Random Glucose 92 (60-115) mg/dL Calcium 9.0 (8.4-10.2) mg/dL Total Bilirubin 0.1 (0.0-1.0) mg/dL AST 19 (5-31) U/L ALT 18 (0-31) U/L Alkaline Phosphatase 51 (39-117) U/L Total Creatine Kinase 106 (26-140) U/L Troponin I High Sens < 2.7 < 2.7 (<3.5-17.0) ng/L Total Protein 7.2 (6.5-8.0) g/dL Albumin 3.9 (3.5-5.0) g/dL Urine Color Yellow Urine Appearance Clear Urine pH 5.5 (5.0-9.0) Ur Specific [place] >= 1.030 H (1.005-1.025) Urine Protein Negative (Neg-Trace) mg/dL Urine Glucose (UA) Negative (Negative) mg/dL Urine Ketones Negative (Negative) mg/dL Urine Blood Small (1+) H (Negative) Urine Nitrite Negative (Negative) Ur Leukocyte Esterase Negative (Negative) Urine RBC 0-2 (0-2) /HPF Urine WBC 0-5 (0-5) /HPF Ur Squamous Epith Cells 0-2 (0-2) /HPF Urine Bacteria None Seen (None Seen) Hyaline Casts 0-2 (0-2) /LPF Urine Test NEGATIVE (NEGATIVE) Independent Interpretation I performed an independent interpretation of an: EKG and CT Scan (no trauma) Interpretation: Rate: 87 Rhythm: NSR [place]: normal Normal P waves. Normal PASCUAL. Normal QRS complex. ST T wave : normal no MARIANNA inverted t wave V1 qTC: 440 prior studies: no acute ischemia The study has been interpreted contemporaneously by me. . Radiology Impression Discussion of test interpretation with radiology: I have reviewed the radiologist's reading. External Record Review External record reviewed: Inpatient record Discharge Plan Discharge Clinical Impression: Seizure Patient Disposition: Home, Self-Care Instructions: Recurrent Seizures in Adults (ED) Additional Instructions: EKG repeat labs normal CT scan of head and neck are normal given dose of keppra in ED return for any worsening symptoms or concerns follow up with your neurologist Prescriptions: New ondansetron 4 mg tablet,disintegrating 4 mg PO Q8H PRN (Reason: nausea and vomiting) Qty: 20 0RF No Action oxybutynin chloride 5 mg tablet 5 mg PO Q8-12H PRN (Reason: bladder spasms) 30 Days Qty: 90 6RF bisacodyl [Dulcolax (bisacodyl)] 5 mg tablet,delayed release (DR/EC) 10 mg PO BEDTIME 2 Days Qty: 4 0RF peg 3350-electrolytes [Golytely] 236-22.74-6.74 -5.86 gram recon soln 240 ml PO Q10M 1 Days Qty: 4000 0RF Rx Instructions: until fecal effluent is clear; do not exceed a total volume of 2,000 mL Mirena 20 mcg/24 hours (7 yrs) 52 mg intrauterine device 52 device intrauterine DIRECTED albuterol sulfate [Ventolin HFA] 90 mcg/actuation HFA aerosol inhaler 2 puff inhalation Q6H PRN (Reason: Wheezing) Flarex 0.1 % drops,suspension 0.1 drp ophthalmic (eye) DAILY alprazolam 0.5 mg tablet 0.5 mg PO DAILY fluticasone propionate [Allergy Relief (fluticasone)] 50 mcg/actuation spray,suspension 1 spray intranasal DAILY Rx Instructions: administer into each nostril loratadine [Allergy Relief (loratadine)] 10 mg tablet 10 mg PO DAILY PRN (Reason: Allergy Symptoms) Flovent HFA 110 mcg/actuation HFA aerosol inhaler 2 puff inhalation 1XD levetiracetam 1,000 mg tablet 1,000 mg PO BID sumatriptan succinate [Imitrex] 50 mg tablet 50 mg PO DAILY PRN (Reason: Headache) Stand Alone Forms: Work/School Release Print Language: Faroese
[2024-01-13 08:29] LABS: Troponin-I High Sensitivity < 2.7 ng/L (<3.5-17.0)
[2024-01-13] MEDS: levETIRAcetam 1,000 MG TABLET 1000 MG PO (08:52)
[2024-01-13] MEDS: Ondansetron ODT 4 MG TAB.RAPDIS TRANSLINGU (08:52)
[2024-01-13 10:39] VITALS: BP 131/79; PULSE 80; RESP 19; TEMP 36.8; O2SAT 99
[2024-01-13 11:08] VITALS: BP 127/86; PULSE 84; RESP 16; TEMP 37; O2SAT 99
== END 2024-01-13 11:13 | disposition home or self-care (01) ==
PROVIDERS: Emergency Provider Emergency Medicine; PCP Internal Medicine
DX: R55 Syncope and collapse (principal); R51.9 Headache, unspecified; M54.2 Cervicalgia; R94.31 Abnormal electrocardiogram [ECG] [EKG]; Z79.899 Other long term (current) drug therapy
CPT/HCPCS: 36415; 70450; 72125; 80053; 81001; 81025; 82550; 84484; 85025; 93005; 99284

== ENCOUNTER → 2024-01-13 01:26 | Outpatient (BNV) | payer OTHER, SELFPAY | PROVIDERS: Emergency Provider Emergency Medicine; PCP Internal Medicine; Visit Provider Internal Medicine Cardiovascular Disease | DX: R94.31 Abnormal electrocardiogram [ECG] [EKG] (principal) | CPT/HCPCS: 93010 ==

== ENCOUNTER 2024-02-14 12:09 | Day surgery (SDC) | payer OTHER, SELFPAY ==
[2024-02-11 08:39] VITALS: BMI 30.3
--- NOTE | 2024-02-11 13:00 | P.CONAN_ITS ---
Documented by User: Meagan Owens NP 02/11/24 13:03 HPI - Anesthesia Eval Consult details Narrative: 48yo F for Upper Endoscopy and Colonoscopy Hx PONV Known seizure hx and med compliance. Seizure 01/2024 with [facility] ED visit: EKG repeat labs normal CT scan of head and neck are normal given dose of keppra in ED return for any worsening symptoms or concerns follow up with your neurologist PMF Active Problems Active Problems: All Active Problems Pre-op examination (Acute) Abdominal bloating (Acute) Nausea (Acute) Gastric pain (Acute) Family history of polyps in the colon (Acute) Allergic rhinitis (Acute) Trichomoniasis (Acute) Problematic vaginal discharge (Acute) Cervical cancer screening (Acute) Presence of 52 mg levonorgestrel-releasing intrauterine device (IUD) (Acute) History of benign ovarian tumor (Acute) Screen for STD (sexually transmitted disease) (Acute) Well woman exam (Acute) Interstitial cystitis (Acute) Family history of breast cancer (Chronic) Vaginal discharge (Acute) Pelvic pain (Acute) History of loop electrical excision procedure (LEEP) (Acute) Endometriosis determined by laparoscopy (Acute) Past Medical History 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 Endometriosis Family History Family History Mother History of gastric cancer Breast cancer Maternal Grandmother Ovarian cancer Uterine cancer Cervical cancer Paternal Grandmother Breast cancer Maternal Uncle Pancreatic cancer Maternal Aunt Pancreatic cancer Paternal Uncle Pancreatic cancer Surgical History Surgical History Hx of cystoscopy History of left oophorectomy (~2019) History of elective breast augmentation (~2018) History of loop electrical excision procedure (LEEP) Social History Social History Household Members: Family Housing: House Are you a primary auto care center manager to a significant other at home: Yes (dad) Do you presently have visiting nurse or other home services: No Alcohol intake: current Alcohol intake frequency: holidays/special occasions only Patient Tobacco Use Status: Never used Tobacco Second Hand Smoke Exposure: No Use of substances other than those prescribed or required for medical reasons: No Are you DNR?: No Advance Directives: No Advance Directives Information Provided: Yes service: No Current occupational status: other Gender identity: Female Meds Allergies Allergy/AdvReac Type Severity Reaction Status Date / Time cat dander Allergy Severe Anaphylaxis Verified 02/14/24 12:32 Gadolinium-Containing Allergy Severe Anaphylaxis Verified 02/14/24 12:32 Contrast Medi [GADOLINIUM-CONTAINING CONTRAST] acetaminophen [Percocet] Allergy Intermediate Itching Verified 02/14/24 12:32 fluoxetine [From PROZAC] Allergy Intermediate PALPITATION Verified 02/14/24 12:32 S oxycodone [Percocet] Allergy Intermediate Itching Verified 02/14/24 12:32 paroxetine [Paxil] Allergy Intermediate Palpitation Verified 02/14/24 12:32 s divalproex sodium AdvReac Intermediate Tremor Verified 02/14/24 12:32 [From Depakote] topiramate [From Topamax] AdvReac Intermediate Clouded Verified 02/14/24 12:32 mentation diphenhydramine AdvReac Unknown Lower Verified 02/14/24 12:32 [From Benadryl] seizure threshold Home Medications ?Medication ?Instructions ?Recorded ?Confirmed ?Last Taken ?Type alprazolam 0.5 mg tablet 0.5 mg PO DAILY night terrors 01/31/21 02/14/24 Unknown History albuterol sulfate 90 mcg/actuation 2 puff inhalation Q6H PRN Wheezing 02/03/21 02/14/24 Unknown History aerosol inhaler (Ventolin HFA) levonorgestrel 21 mcg/24 hours (8 52 device intrauterine DIRECTED 03/04/22 02/14/24 Unknown History yrs) 52 mg intrauterine device (Mirena) loratadine 10 mg tablet (Allergy 10 mg PO DAILY PRN Allergy Symptoms 04/15/22 02/14/24 Unknown History Relief (loratadine)) levetiracetam 1,000 mg tablet 1,000 mg PO BID 12/14/22 02/14/24 02/14/24 08:30 History sumatriptan succinate 50 mg tablet 50 mg PO DAILY PRN Headache 03/13/23 05/13/24 Unknown History (Imitrex) Exam Height,Weight and Vital Signs: Height 5 ft 3 in Weight 77.564 kg Pertinent Lab Results Pertinent Lab Results: Laboratory Tests 01/13/24 01:24 WBC 8.5 Hgb 13.7 Hct 41.2 Plt Count 277 Sodium 142 Potassium 4.2 Chloride 109 H Carbon Dioxide 27 BUN 21 H Creatinine 0.92 Narrative Narrative: EKG 01/2024 Vent. Rate : 087 BPM Atrial Rate : 087 BPM P-R Int : 156 ms QRS Dur : 078 ms QT Int : 366 ms P-R-T Axes : 066 054 065 degrees QTc Int : 440 ms Normal sinus rhythm Cannot rule out Anterior infarct , age undetermined Abnormal ECG When compared with ECG of 14-SEP-2022 11:53, No significant change was found 01/2024 CT head/brain wo IV con IMPRESSION: CT head: No acute intracranial finding. CT cervical spine: No cervical spine fracture or traumatic malalignment identified. Mild degenerative changes at the level of C6-C7 Assessment and Plan Assessment Anesthesia Assessment: Chart Reviewed Documented by User: Leni Valencia MD 02/14/24 13:18 [facility] Past Medical History 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 Endometriosis Family History Family History Mother History of gastric cancer Breast cancer Maternal Grandmother Ovarian cancer Uterine cancer Cervical cancer Paternal Grandmother Breast cancer Maternal Uncle Pancreatic cancer Maternal Aunt Pancreatic cancer Paternal Uncle Pancreatic cancer Family history of problems with anesthesia: No Surgical History Surgical History Hx of cystoscopy History of left oophorectomy (~2019) History of elective breast augmentation (~2019) History of loop electrical excision procedure (LEEP) History of Problems with Anesthesia: No Social History Social History Household Members: Family Housing: House Are you a primary auto care center manager to a significant other at home: Yes (dad) Do you presently have visiting nurse or other home services: No Alcohol intake: current Alcohol intake frequency: holidays/special occasions only Patient Tobacco Use Status: Never used Tobacco Second Hand Smoke Exposure: No Use of substances other than those prescribed or required for medical reasons: No Are you DNR?: No Advance Directives: No Advance Directives Information Provided: Yes service: No Current occupational status: other Gender identity: Female Meds Allergies Allergy/AdvReac Type Severity Reaction Status Date / Time cat dander Allergy Severe Anaphylaxis Verified 02/14/24 12:32 Gadolinium-Containing Allergy Severe Anaphylaxis Verified 02/14/24 12:32 Contrast Medi [GADOLINIUM-CONTAINING CONTRAST] acetaminophen [Percocet] Allergy Intermediate Itching Verified 02/14/24 12:32 fluoxetine [From PROZAC] Allergy Intermediate PALPITATION Verified 02/14/24 12:32 S oxycodone [Percocet] Allergy Intermediate Itching Verified 02/14/24 12:32 paroxetine [Paxil] Allergy Intermediate Palpitation Verified 02/14/24 12:32 s divalproex sodium AdvReac Intermediate Tremor Verified 02/14/24 12:32 [From Depakote] topiramate [From Topamax] AdvReac Intermediate Clouded Verified 02/14/24 12:32 mentation diphenhydramine AdvReac Unknown Lower Verified 02/14/24 12:32 [From Benadryl] seizure threshold Home Medications ?Medication ?Instructions ?Recorded ?Confirmed ?Last Taken ?Type alprazolam 0.5 mg tablet 0.5 mg PO DAILY night terrors 01/31/21 02/14/24 Unknown History albuterol sulfate 90 mcg/actuation 2 puff inhalation Q6H PRN Wheezing 02/03/21 02/14/24 Unknown History aerosol inhaler (Ventolin HFA) levonorgestrel 21 mcg/24 hours (8 52 device intrauterine DIRECTED 03/04/22 02/14/24 Unknown History yrs) 52 mg intrauterine device (Mirena) loratadine 10 mg tablet (Allergy 10 mg PO DAILY PRN Allergy Symptoms 04/15/22 02/14/24 Unknown History Relief (loratadine)) levetiracetam 1,000 mg tablet 1,000 mg PO BID 12/14/22 02/14/24 02/14/24 08:30 History sumatriptan succinate 50 mg tablet 50 mg PO DAILY PRN Headache 12/14/22 02/14/24 Unknown History (Imitrex) Exam Airway Mallampati Class: II TM Dist: >3cm Neck ROM: Full Heart: rrr Lungs: cta Assessment and Plan Assessment Anesthesia Assessment: Anesthesia Plan Discussed Final Anesthetic Review Family History of Problems with Anesthesia: No History of Problems with Anesthesia: No NPO: Yes ASA Class: II Final Preanesthetic Review: No Changes in Pt Med Stat, Meds/Allgs Chart Reviewed and Consent Obtained/Reviewed Patient Risk: Intermediate Procedure Risk: Intermediate Anesthetic Plan Anesthetic Plan: MAC: Disposition: Standard PACU
[2024-02-14 12:32] VITALS: BMI 30.6
[2024-02-14 12:56] VITALS: BP 125/80; PULSE 84; RESP 16; TEMP 36.4; O2SAT 98
[2024-02-14 12:56] LABS: UPreg QC Valid YES; Urine Pregnancy NEGATIVE (NEGATIVE)
[2024-02-14] MEDS: Lactated Ringers 1,000 ML 100 ML IVCONT (13:10)
--- NOTE | 2024-02-14 13:38 | MHC.SHP ---
Pre-Procedural Eval Section A - 24 Hr Update-Section A only Date of Service: 02/14/24 The patient is an INPATIENT: No The patient has been examined within 24 hours of the surgical procedure. The History & Physical has been completed within 30 days and I have reviewed it.: No Section B - Complete if H&P > 30 days Chief Complaint: Screening, FH of stomach cancer and colon polyps Relevant Family History (Specify if Yes): Yes Relevant Social History: None Present Medications: see Short Stay Collaborative assessment Medical History: Significant History (H/O sigmoidoscopy COVID-19 PONV (postoperative nausea and vomiting) Migraine Endometriosis determined by laparoscopy Sleep terror 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 Endometriosis) History of Previous Operations: Relevant previous surgery/procedure and date(s) (History of left oophorectomy (~2019) History of elective breast augmentation (~2018) History of loop electrical excision procedure (LEEP)) Allergies: Allergies Allergy/AdvReac Type Severity Reaction Status Date / Time cat dander Allergy Severe Anaphylaxis Verified 02/14/24 12:32 Gadolinium-Containing Allergy Severe Anaphylaxis Verified 02/14/24 12:32 Contrast Medi [GADOLINIUM-CONTAINING CONTRAST] acetaminophen [Percocet] Allergy Intermediate Itching Verified 02/14/24 12:32 fluoxetine [From PROZAC] Allergy Intermediate PALPITATION Verified 02/14/24 12:32 S oxycodone [Percocet] Allergy Intermediate Itching Verified 02/14/24 12:32 paroxetine [Paxil] Allergy Intermediate Palpitation Verified 02/14/24 12:32 s divalproex sodium AdvReac Intermediate Tremor Verified 02/14/24 12:32 [From Depakote] topiramate [From Topamax] AdvReac Intermediate Clouded Verified 02/14/24 12:32 mentation diphenhydramine AdvReac Unknown Lower Verified 02/14/24 12:32 [From Benadryl] seizure threshold Review of Systems Sugical H&P ROS: Negative: Constitution, Cardiovascular, Respiratory and Gastrointestinal Exam Surgical H&P Exam: Normal: Heart, Normal: Lungs, Normal: Extremities and Normal: Abdomen Plan Diagnosis/Plan: Unchanged I have reviewed the history and physical and performed a pertinent physical examination on my patient. No changes have occurred unless specified. Time Spent With Patient Time: Total time managing care of this patient today ____ minutes.
--- NOTE | 2024-02-14 14:41 | HO.OPN-COLON ---
Colonoscopy Operative Note Operative Note Date of Service: 02/14/24 Narrative: FLEXIBLE TRANSORAL UPPER GASTROINTESTINAL ENDOSCOPY WITH BIOPSIES AND COLONOSCOPY TILL CECUM WITH SNARE POLYPECTOMY, SUBMUCOSAL INJECTION AND HEMOCLIP PLACEMENT Pre-op diagnosis: Colon cancer screening, GERD, family hx of stomach cancer (Mom) and colon polyps (brother) Per Dr Wilson extended genetic panel testing negative for inherited cancer syndromes. Post-op diagnosis: Gastritis, antral erosions, Colon Polyp, Diverticulosis, hemorrhoids Endoscopist:? El Burch MD Anesthesia:?MAC UPPER ENDOSCOPY Consent: Indications for the procedure and potential complications of bleeding, perforation, reaction to medications and missed diagnosis were discussed with the patient and informed consent was obtained. Instrument: Olympus GIF H 190 mid size upper endoscope Monitoring: Vital signs and clinical assessment, continuous EKG monitoring, Pulse oximetry, Carbon Dioxide monitoring and blood pressure monitoring were done throughout the procedure. Procedure: The patient was placed in the left lateral decubitis position and pre-procedure medications were administered and a bite block was placed. The endoscope was inserted into the mouth and advanced under direct vision to the third part of duodenum. A careful inspection was made as the upper endoscope was withdrawn including a retroflexed examination of the proximal stomach; Findings and interventions are described below. Findings: Larynx: Normal Esophagus: GE junction at 35 cms. No esophagitis or Perkins's. Stomach: Multiple linear erosions in the antrum - biopsied. Moderate diffuse gastric erythema - biopsies were obtained from the body and antrum. Grade 2 flap valve on retroflexed examination of the cardia. Duodenum: Normal bulb and descending duodenum Biopsies were obtained from descending duodenum to check for celiac sprue Intervention: Biopsies as noted above COLONOSCOPY PROCEDURE NOTE Instrument: Olympus PCF H 190 L variable stiffness pediatric colonoscope Monitoring: Vital signs and clinical assessment, intermittent blood pressure monitoring, continuous EKG monitoring, Pulse oximetry and Carbon Dioxide monitoring were done throughout the procedure. Please see anesthesia flowsheet. Colon withdrawl time was 17 minutes. Procedure: The patient was placed in the left lateral decubitis position and pre-procedure medications were administered. After a digital rectal examination of the ano-rectum, the video colonoscope was inserted into the rectum and advanced through the colon to the cecum. The colonoscope was slowly withdrawn in a retrograde panoramic fashion and the colon mucosa was carefully examined including a retroflexed view of the rectum. Findings and interventions are described below. Procedure Difficulty: without difficulty Findings: Terminal Ileum: Not evaluated Cecum: Normal Ascending Colon: A 12-15 mm flat polyp in the distal AC/hepatic flexure at 70 cms. Polyp was raised with 2 cc of Eleview and removed with a stiff hot snare. Polypectomy site was closed with 1 hemoclip Transverse Colon: Normal Descending Colon: Normal Sigmoid Colon: Moderate diverticulosis Rectum: Normal Ano-rectum: Moderate internal hemorrhoids Colon preparation: Excellent, after some irrigation. [place] Bowel Preparation Scale Right colon; 3 Transverse colon: 3 Left colon; 3 (0 = Unprepared colon segment with mucosa not seen due to solid stool that cannot be cleared. 1 = Portion of mucosa of the colon segment seen, but other areas of the colon segment not well seen due to staining, residual stool and/or opaque liquid. 2 = Minor amount of residual staining, small fragments of stool and/or opaque liquid, but mucosa of colon segment seen well. 3 = Entire mucosa of colon segment seen well with no residual staining, small fragments of stool or opaque liquid) Impression and Post Procedure Diagnosis: Endoscopy Findings: STOMACH: Multiple linear erosions in the antrum - biopsied (likely due to NSAID use) Moderate diffuse gastric erythema - biopsies were obtained from the body and antrum. DUODENUM: Normal - biopsied to check for celiac sprue Colonoscopy Findings: One medium sized polyp was removed Moderate diverticulosis seen in the sigmoid colon Moderate hemorrhoids on retroflexed exam. Plan: Pt has a FU appointment on 03/02/24 with Sherry Alvarez NP Repeat Colonoscopy in 3-5 years if polyps are adenomatous and due to family hx of colon polyps and multiple malignancies. Above findings were reviewed with the patient and relevant handouts were given and the discharge area. Pt admitted to taking Ibuprofen + acetaminophen recently for back pain. She was advised to discontinue Ibuprofen and take omeprazole 20 mg daily for 4 weeks and then discontinue (prescription sent) ?
[2024-02-14 15:13] VITALS: BP 117/73; PULSE 103; RESP 16; TEMP 36.2; O2SAT 100
[2024-02-14 15:25] VITALS: BP 120/84; PULSE 104; RESP 16; O2SAT 99
[2024-02-14 15:40] VITALS: BP 132/89; PULSE 90; RESP 14; TEMP 36.1; O2SAT 100
== END 2024-02-14 16:22 | disposition home or self-care (01) ==
PROVIDERS: Nurse Practitioner; PCP Internal Medicine; Visit Provider Internal Medicine Gastroenterology
PROC: (CPT 45385; principal; 2024-02-14 14:10)
DX: Z12.11 Encounter for screening for malignant neoplasm of colon (principal); K63.5 Polyp of colon; K57.30 Diverticulosis of large intestine without perforation or abscess without bleeding; K64.8 Other hemorrhoids; R10.9 Unspecified abdominal pain; R11.0 Nausea; R14.0 Abdominal distension (gaseous); K21.9 Gastro-esophageal reflux disease without esophagitis; K29.70 Gastritis, unspecified, without bleeding; K25.9 Gastric ulcer, unspecified as acute or chronic, without hemorrhage or perforation; Z80.0 Family history of malignant neoplasm of digestive organs; Z83.719 Family history of colon polyps, unspecified; G40.909 Epilepsy, unspecified, not intractable, without status epilepticus; Z79.899 Other long term (current) drug therapy; Z88.5 Allergy status to narcotic agent; Z88.8 Allergy status to other drugs, medicaments and biological substances; Z91.041 Radiographic dye allergy status
CPT/HCPCS: 45385; 45381; 43239; 81025; 88305; 88313; 88342; J1596; J2704

== ENCOUNTER → 2024-02-14 12:09 | Outpatient (BNV) | payer OTHER, SELFPAY | PROVIDERS: PCP Internal Medicine; Visit Provider Internal Medicine Gastroenterology | DX: Z12.11 Encounter for screening for malignant neoplasm of colon (principal); Z80.0 Family history of malignant neoplasm of digestive organs; K63.5 Polyp of colon; K57.30 Diverticulosis of large intestine without perforation or abscess without bleeding; K21.9 Gastro-esophageal reflux disease without esophagitis; K29.70 Gastritis, unspecified, without bleeding; K25.9 Gastric ulcer, unspecified as acute or chronic, without hemorrhage or perforation | CPT/HCPCS: 43239; 45381; 45385 ==

== ENCOUNTER 2024-03-02 08:03 | Outpatient (AMB) | payer OTHER, SELFPAY ==
--- NOTE | 2024-03-02 08:12 | MHC.OFFVIS ---
Vital Signs 03/02/24 08:15 Height 5 ft 3 in Weight 177 lb 11.081 oz BMI 31.5 BP 130/87 Blood Pressure Location Lt brachial Position Sitting Pulse 84 Pulse Oximetry (%) 99 Intake Visit Reasons: s/p egd/colon Marcin Intake Note: Bessie presents in the office as a follow up egd and colo. CC: She states that she wants to know what OTC pain medications she can take regarding a work injury and when is she cleared to have an MRI - she had a clip put in. She was injured in her right side joint. 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 Allergies cat dander Allergy (Severe, Verified 03/02/24 08:15) Anaphylaxis Gadolinium-Containing Contrast Medi [GADOLINIUM-CONTAINING CONTRAST] Allergy (Severe, Verified 03/02/24 08:15) Anaphylaxis acetaminophen [Percocet] Allergy (Intermediate, Verified 03/02/24 08:15) Itching fluoxetine [From PROZAC] Allergy (Intermediate, Verified 03/02/24 08:15) PALPITATIONS oxycodone [Percocet] Allergy (Intermediate, Verified 03/02/24 08:15) Itching paroxetine [Paxil] Allergy (Intermediate, Verified 03/02/24 08:15) Palpitations divalproex sodium [From Depakote] Adverse Reaction (Intermediate, Verified 03/02/24 08:15) Tremor topiramate [From Topamax] Adverse Reaction (Intermediate, Verified 03/02/24 08:15) Clouded mentation diphenhydramine [From Benadryl] Adverse Reaction (Unknown, Verified 03/02/24 08:15) Lower seizure threshold HPI HPI s/p egd/colon Marcin: Details: LAST VISIT: This is her first scope. She says she was referred here by her oncologist who she follows because she has a genetic screening showing she is at high risk for breast cancer in she is pre treating this with tamoxifen. Recent rectal discomfort she thinks may be hemorrhoid, new (on examination it is a swollen column at 09:00 o'clock) her bowels have been generally softer. She has on going pain in the gastric area described as an ache like when you spend a day or 2 vomiting, and she has frequent nausea. This has been a problem for 1 month ago. This was of sudden onset. No new meds, diet changes, sick contacts with this. She avoids milk us she feels like it makes her symptoms worst which may be a bit of lactose intolerance. She has trouble swallowing her saliva intermittently, but not with eating. She has a lot of bloating. The pain does not move or radiate. (she had some sudden leg weariness and recent lumbar xrays). The she has had to eliminate a lot of foods from her diet because of her interstitial cystitis not so much because of her GI symptoms. She has some chronic lower abdominal pain from her is interstitial cystitis. She also experiences nausea post ictally. The pain is there constantly and is not effected by eating or BM. She can not ID exacerbating/remitting problems except palpation. She has had N/V post operatively, and her mother was allergic to anesthesia or she would go into cardiac arrest, no other problems known. She does not know of her mother's problem was malignant hypertension since it was diagnosed in [place]. Her resp problems are currently well controlled, no cardiac problems except hx of PVC's. Her epilepsy manifests as complex partial seizures only when she sleeps that contribute to her night terrors an a.m. headache. She says that this is well controlled on Keppra and her benzodiazepine. No ID problems. Her brother had colon polyps, and her mother had stomach cancer (71) and breast age (40's). Will get HP breath test and order scopes. She dislikes taking medicines until I know a cause. She says her sister had H pylori. She was educated H pylori is the most common cause of ulcer disease and gastric cancer so this will be important screening to get in order to determine if she needs to be treated as quickly as possible. Obviously this would offer her symptomatic relief as well. UPPER ENDOSCOPY AND COLONOSCOPY Findings: Larynx: Normal Esophagus: GE junction at 35 cms. No esophagitis or Perkins's. Stomach: Multiple linear erosions in the antrum - biopsied. Moderate diffuse gastric erythema - biopsies were obtained from the body and antrum. Grade 2 flap valve on retroflexed examination of the cardia. Duodenum: Normal bulb and descending duodenum Biopsies were obtained from descending duodenum to check for celiac sprue Intervention: Biopsies as noted above Findings: Terminal Ileum: Not evaluated Cecum: Normal Ascending Colon: A 12-15 mm flat polyp in the distal AC/hepatic flexure at 70 cms. Polyp was raised with 2 cc of Eleview and removed with a stiff hot snare. Polypectomy site was closed with 1 hemoclip Transverse Colon: Normal Descending Colon: Normal Sigmoid Colon: Moderate diverticulosis Rectum: Normal Ano-rectum: Moderate internal hemorrhoids Colon preparation: Excellent, after some irrigation. Letts Bowel Preparation Scale Right colon; 3 Transverse colon: 3 Left colon; 3 (0 = Unprepared colon segment with mucosa not seen due to solid stool that cannot be cleared. 1 = Portion of mucosa of the colon segment seen, but other areas of the colon segment not well seen due to staining, residual stool and/or opaque liquid. 2 = Minor amount of residual staining, small fragments of stool and/or opaque liquid, but mucosa of colon segment seen well. 3 = Entire mucosa of colon segment seen well with no residual staining, small fragments of stool or opaque liquid) Impression and Post Procedure Diagnosis: Endoscopy Findings: STOMACH: Multiple linear erosions in the antrum - biopsied (likely due to NSAID use) Moderate diffuse gastric erythema - biopsies were obtained from the body and antrum. DUODENUM: Normal - biopsied to check for celiac sprue Colonoscopy Findings: One medium sized polyp was removed Moderate diverticulosis seen in the sigmoid colon Moderate hemorrhoids on retroflexed exam. Plan: Repeat Colonoscopy in 3-5 years if polyps are adenomatous and due to family hx of colon polyps and multiple malignancies. Above findings were reviewed with the patient and relevant handouts were given and the discharge area. Pt admitted to taking Ibuprofen + acetaminophen recently for back pain. She was advised to discontinue Ibuprofen and take omeprazole 20 mg daily for 4 weeks and then discontinue (prescription sent) PATOLOGY RESULTS Diagnosis A. Small bowel, biopsy: Small intestinal mucosa within normal limits; negative for celiac disease. B. Stomach, antrum, biopsy: Antral-type and oxyntic mucosa with mild chronic inactive inflammation; no Helicobacter organisms seen. C. Stomach, erosions, biopsy: Antral-type and oxyntic mucosa with mild chronic inactive inflammation and regenerative changes; no Helicobacter organisms seen. D. Stomach, body, biopsy: Oxyntic mucosa within normal limits; no Helicobacter organisms seen. E. Colon, ascending, polypectomy: Small fragments of colonic mucosa with mild surface hyperplastic changes and thermal artifact TODAY'S VISIT: Patient is here today for follow-up and to discuss upper endoscopy and colonoscopy results. Patient denies any ill effects from the prep, anesthesia or procedure itself. Patient reports that she has been feeling well. Denies any abdominal pain or discomfort. Denies any dyspepsia, dysphagia or odynophagia. Upper endoscopy and colonoscopy results discussed with patient. Gastric erosions seen on upper endoscopy. Patient reports that she was taking ibuprofen for lower back pain. Patient stopped taking it and currently is taking omeprazole twice a day. Her epigastric pain is getting better. H pylori was negative. Upper endoscopy and colonoscopy results discussed with patient. [facility] Medical History (Updated 03/02/24 @ 08:45 by Chantale Alvarez [facility]) H/O sigmoidoscopy COVID-19 PONV (postoperative nausea and vomiting) Migraine Endometriosis determined by laparoscopy Sleep terror 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 Endometriosis Surgical History (Updated 03/02/24 @ 08:13 by HAILEE Perez) Hx of colonoscopy History of esophagogastroduodenoscopy (EGD) Hx of cystoscopy History of left oophorectomy (~2019) History of elective breast augmentation (~2019) History of loop electrical excision procedure (LEEP) Family History Mother History of gastric cancer Breast cancer Maternal Grandmother Ovarian cancer Uterine cancer Cervical cancer Paternal Grandmother Breast cancer Maternal Uncle Pancreatic cancer Maternal Aunt Pancreatic cancer Paternal Uncle Pancreatic cancer Social History Household Members: Family Housing: House Are you a primary career advisor to a significant other at home: Yes (dad) Do you presently have visiting nurse or other home services: No Alcohol intake: current Alcohol intake frequency: holidays/special occasions only Patient Tobacco Use Status: Never used Tobacco Second Hand Smoke Exposure: No service: No Current occupational status: other Gender identity: Female Female Reproductive History Menstrual Age of Menarche: 13 Physical Exam Vital Signs: Last Vital Signs Pulse 84 03/02/24 08:15 BP 130/87 03/02/24 08:15 Pulse Ox 99 03/02/24 08:15 BMI result Body Mass Index 31.5 Const General: healthy appearing and no acute distress Nutritional Appearance: obese Orientation/consciousness: patient oriented x3 Resp Effort & Inspection: normal respiratory effort, able to speak in complete sentences, no tracheal deviation and symmetric chest movement Auscultation: clear to auscultation bilaterally Cardio Rate: regular rate GI Inspection: Yes normal to inspection, No distended and Yes obesity Palpation (GI): Soft to palpation, not firm, nontender and No hepatosplenomegaly present Auscultation: normal bowel sounds General: Yes no CVA tenderness Back/Spine/Pelvis Back: no CVA tenderness Skin General skin exam: elasticity normal, turgor normal and dry skin Neuro General: patient oriented x3 Psych Appearance: grossly normal Mental Status: mental status grossly normal Assessment & Plan Assessment & Plan (1) Gastric erosions: Code(s): K25.9 - Gastric ulcer, unspecified as acute or chronic, without hemorrhage or perforation Category: Medical Qualifiers: Gastric ulcer chronicity: unspecified ulcer chronicity Qualified Code(s): K25.9 - Gastric ulcer, unspecified as acute or chronic, without hemorrhage or perforation (2) Nausea: Code(s): R11.0 - Nausea Category: Medical (3) Abdominal bloating: Code(s): R14.0 - Abdominal distension (gaseous) Category: Medical (4) Family history of polyps in the colon: Code(s): Z83.719 - Family history of colon polyps, unspecified Category: Medical (5) Gastric pain: Code(s): R10.9 - Unspecified abdominal pain Category: Medical Plan Patient will continue omeprazole and finished her 4 weeks therapy. Avoid NSAIDs. Colonoscopy in 3 years. Patient will go for KUB, she needs to go for MRI will evaluate for clip. She will come back to our office on as needed basis. She is agreeable to this plan and verbalizes understanding of instructions. She was given the opportunity to ask questions and all questions answered thank you for allowing me to participate in her care Orders: Orders XR KUB Today K59.00 - Constipation, unspecified Coding Level of Care Code Est Pt Level 3 (37170) Diagnoses Gastric erosion, unspecified chronicity K25.9 Gastric ulcer chronicity: unspecified ulcer chronicity Nausea R11.0 Abdominal bloating R14.0 Family history of polyps in the colon Z83.719 Gastric pain R10.9 Time Spent (min) 30 Comment 20 minutes spent with patient and additional 10 minutes spent reviewing her records
[2024-03-02 08:15] VITALS: BP 130/87; PULSE 84; O2SAT 99; BMI 31.5
== END 2024-03-02 08:55 | disposition home or self-care (01) ==
PROVIDERS: PCP Internal Medicine; Visit Provider Nurse Practitioner Family
DX: K25.9 Gastric ulcer, unspecified as acute or chronic, without hemorrhage or perforation (principal); R11.0 Nausea; R14.0 Abdominal distension (gaseous); Z83.719 Family history of colon polyps, unspecified; R10.9 Unspecified abdominal pain
CPT/HCPCS: 99213

== ENCOUNTER 2024-03-02 08:03 | Outpatient (REF) | payer OTHER, SELFPAY ==
--- NOTE | ~2024-03-02 | XR_ITS ---
EXAMINATION: XR ABDOMEN COMPLETE CLINICAL INDICATION: Reason for Exam K59.00 - Constipation, unspecified COMPARISON: None TECHNIQUE: AP view of the abdomen. FINDINGS: Lines or devices: Intrauterine device in the central pelvis. Nonobstructive bowel gas pattern. Large colonic stool burden. Supine technique limits evaluation for extraluminal air although no secondary findings are appreciated. Calcified phleboliths in the pelvis. XR/XR KUB IMPRESSION: 1. Nonobstructive bowel gas pattern. Large colonic stool burden.
== END 2024-03-02 08:04 | disposition home or self-care (01) ==
LOC: HO.XRAY 08:03
PROVIDERS: PCP Internal Medicine; Visit Provider Nurse Practitioner Family
DX: K59.00 Constipation, unspecified (principal); K25.9 Gastric ulcer, unspecified as acute or chronic, without hemorrhage or perforation; R11.0 Nausea; R14.0 Abdominal distension (gaseous); R10.9 Unspecified abdominal pain; Z83.719 Family history of colon polyps, unspecified
CPT/HCPCS: 74018; 99212

== ENCOUNTER 2024-06-14 13:12 | Outpatient (AMB) | payer OTHER, SELFPAY ==
--- NOTE | 2024-06-14 14:05 | A.OFFVIS_ITS ---
Intake Visit Reasons: re-establish care IC Intake Note: Patient is present for Re-establish care/IC Urology Medication:OXYBUTYNIN Antibiotic Allergy:NONE Blood Thinner:NONE Building Insulation Installer Required: No Allergies cat dander Allergy (Severe, Verified 07/02/24 19:16) Anaphylaxis Gadolinium-Containing Contrast Medi [GADOLINIUM-CONTAINING CONTRAST] Allergy (Severe, Verified 07/02/24 19:16) Anaphylaxis acetaminophen [Percocet] Allergy (Intermediate, Verified 07/02/24 19:16) Itching fluoxetine [From PROZAC] Allergy (Intermediate, Verified 07/02/24 19:16) PALPITATIONS oxycodone [Percocet] Allergy (Intermediate, Verified 07/02/24 19:16) Itching paroxetine [Paxil] Allergy (Intermediate, Verified 07/02/24 19:16) Palpitations divalproex sodium [From Depakote] Adverse Reaction (Intermediate, Verified 07/02/24 19:16) Tremor topiramate [From Topamax] Adverse Reaction (Intermediate, Verified 07/02/24 19:16) Clouded mentation diphenhydramine [From Benadryl] Adverse Reaction (Unknown, Verified 07/02/24 19:16) Lower seizure threshold Medication List - Last Reconciled 06/14/24 by Juan Luis Rice MD albuterol sulfate 90 mcg/actuation (Ventolin HFA) 2 puffs inhalation Q6H PRN alprazolam 0.5 mg PO DAILY amitriptyline 25 mg PO BEDTIME fluticasone propionate 110 mcg/actuation 2 puffs inhalation BID fluticasone propionate 50 mcg/actuation 1 spray intranasal BID levetiracetam 1,000 mg PO BID levonorgestrel (Mirena) 52 device intrauterine DIRECTED loratadine (Allergy Relief (loratadine)) 10 mg PO DAILY PRN omeprazole 20 mg PO DAILY 4 weeks ondansetron 4 mg PO Q8H PRN oxybutynin chloride ER 10 mg PO DAILY sumatriptan succinate (Imitrex) 50 mg PO DAILY PRN HPI Comments Details: Bessie is a pleasant female. She is a patient of . She seen for the following urologic conditions - interstitial cystitis LV 2020- the patient states that she had several medical conditions that prevented her from following up with the office sooner. Currently she denies significant bladder symptoms she does use oxybutynin on a p.r.n. basis. She feels that the oxybutynin helps with urinary urge symptoms. She had a positive response with clinical improvement of pelvic pain and urgency with hydrodistention. 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 Endometriosis Surgical History Hx of colonoscopy History of esophagogastroduodenoscopy (EGD) Hx of cystoscopy History of left oophorectomy (~2019) History of elective breast augmentation (~2018) History of loop electrical excision procedure (LEEP) Family History Mother History of gastric cancer Breast cancer Maternal Grandmother Ovarian cancer Uterine cancer Cervical cancer Paternal Grandmother Breast cancer Maternal Uncle Pancreatic cancer Maternal Aunt Pancreatic cancer Paternal Uncle Pancreatic cancer Social History Household Members: Family Housing: House Are you a primary primary care md to a significant other at home: Yes (dad) Do you presently have visiting nurse or other home services: No Alcohol intake: current Alcohol intake frequency: holidays/special occasions only Patient Tobacco Use Status: Never used Tobacco Second Hand Smoke Exposure: No service: No Current occupational status: other Gender identity: Female Female Reproductive History Menstrual Age of Menarche: 13 Review of Systems Const All systems reviewed & are unremarkable except as noted in HPI and below Reports no additional complaints Eyes Reports no additional complaints ENT Reports no additional complaints Card Reports no additional complaints Resp Reports no additional complaints GI Reports no additional complaints Reports as per HPI Musc Reports no additional complaints Skin/Breast Reports system reviewed and no additional complaints, except as documented Neuro Reports no additional complaints Psych Reports no additional complaints Endo Reports no additional complaints Moshe/Lymph Reports no additional complaints Aller/Immun Reports no additional complaints Physical Exam Const General: cooperative, healthy appearing and no acute distress Orientation/consciousness: patient oriented x3 HEENT Head: Yes normal to inspection, Yes normocephalic and Yes atraumatic Eyes Conjunctivae: conjunctivae normal Neck Neck: Yes normal visual inspection and Yes trachea midline Chest Chest palpation & inspection: normal inspection of the chest Resp Effort & Inspection: normal respiratory effort Cardio Rate: regular rate GI Inspection: Yes normal to inspection Neuro General: patient oriented x3 Extrem General: No edema Psych Appearance: grossly normal Results AMB Urinalysis, Automated UA Leukoctes 0 Abby/uL Last Edit by Meryl Falcon CCM on 06/14/24 14:24 UA Nitrite Negative Last Edit by Meryl Falcon [facility] on 06/14/24 14:24 UA Urobilinogen 0.2 mg/dL Last Edit by Meryl Falcon [facility] on 06/14/24 14:2 4 UA Protein 0 mg/dL Last Edit by Meryl Falcon [facility] on 06/14/24 14:24 UA pH 7.0 Last Edit by Meryl Falcon [facility] on 06/14/24 14:24 UA Blood 10 Neptali/uL Last Edit by Meryl Falcon [facility] on 06/14/24 14:24 UA Specific [place] 1.010 Last Edit by Meryl Falcon CCM on 06/14/24 14: 24 UA Ketone Negative Last Edit by Meryl Falcon CCM on 06/14/24 14:24 UA Bilirubin 0 mg/dL Last Edit by Meryl Falcon [facility] on 06/14/24 14:24 UA Glucose 0 mg/dL Last Edit by Meryl Falcon [facility] on 06/14/24 14:24 Results Reviewed Results Reviewed: Laboratory Last Values Urine pH (Auto) 7.0 06/14/24 14: Specific [place] (Auto) 1.010 06/14/24 14:23 Urine Protein (Auto) 0 mg/dL 06/14/24 14:23 Glucose (UA)(Auto) 0 mg/dL 06/14/24 14:23 Urine Ketones (Auto) Negative 06/14/24 14:23 Urine Blood (Auto) 10 Neptali/uL 06/14/24 14:23 Urine Nitrite (Auto) Negative 06/14/24 14:23 Urine Bilirubin (Auto) 0 mg/dL 06/14/24 14:23 Urine Urobilinogen (Auto) 0.2 mg/dL 06/14/24 14:23 Leukocyte Esterase (Auto) 0 Abby/uL 06/14/24 14:23 Assessment & Plan Assessment & Plan (1) Interstitial cystitis: Comment: Last hydrodistention January 2021 Code(s): N30.10 - Interstitial cystitis (chronic) without hematuria Category: Medical Plan oxybutynin 10 mg daily. FU one year Orders: Orders AMB Urinalysis Automated 06/14/24 Z13.9 - Encounter for screening, unspecified Medications: New oxybutynin chloride ER 10 mg PO DAILY 30 tabs 3RF Patient Instructions: The patient had an opportunity to ask questions regarding treatment plan. The patient expressed understanding and agreement with the above treatment plan. The patient is aware they should contact our office by phone for worsening of their current condition or the appearance of new symptoms. Compliance is encouraged with any medications and followup testing that is ordered. It is a privilege to be allowed the opportunity to participate in the urologic care of your patient. If you have any questions or concerns regarding treatment for the above conditions please do not hesitate to contact me. The office telephone contact is [phone]. This note is constructed in part using voice recognition software. While every effort has been made to ensure accuracy feather boner errors may have been included. Yours sincerely, Juan Luis Rice MD Coding Level of Care Code New Pt Level 3 (83025) Diagnoses Interstitial cystitis N30.10
== END 2024-06-14 14:53 | disposition home or self-care (01) ==
PROVIDERS: PCP Internal Medicine; Visit Provider Urology
DX: N30.10 Interstitial cystitis (chronic) without hematuria (principal)
CPT/HCPCS: 99203

== ENCOUNTER → 2024-06-14 13:12 | Outpatient (BNVA) | payer OTHER, SELFPAY | PROVIDERS: PCP Internal Medicine; Visit Provider Urology | DX: N30.10 Interstitial cystitis (chronic) without hematuria (principal) | CPT/HCPCS: 81003; 99202 ==

== ENCOUNTER 2024-07-02 19:00 | Emergency (ER) | payer OTHER, SELFPAY ==
--- NOTE | ~2024-07-02 | US_ITS ---
EXAMINATION: US TRIPLEX LOWER EXTREMITY, RIGHT CLINICAL INFORMATION: History pain and swelling COMPARISON: None available. TECHNIQUE: Color-flow triplex imaging with spectral analysis and compression Doppler were performed on the right lower extremity. FINDINGS: Respiratory variation, normal compression and augmented flow are noted throughout the right lower extremity. The visualized common femoral vein, superficial femoral vein, profunda femoral vein, popliteal vein and midcalf peroneal and posterior tibial venous segments show no evidence of deep venous thrombosis. The contralateral left common femoral vein appeared normal. There is no Nolan's cyst. US/US venous duplex LE RT IMPRESSION: No evidence of deep venous thrombosis involving the right lower extremity. Electronically signed by: Abelardo Estrada MD 07/02/2024 09:28 PM EDT
[2024-07-02 19:13] VITALS: BP 141/93; PULSE 99; RESP 18; TEMP 37.1; O2SAT 100; BMI 32.6
--- NOTE | 2024-07-02 19:20 | ED_ITS ---
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 Pain and swelling to dorsum of the R foot - no rash no fevers. Did see urgent care who Rx prednisone but it did not help. She did not get xray due to lack of trauma. Pain with walking and palpation. No numbness or weakness. Came today as pain went up into calf after flying and she wanted to make sure it was not a blood clot. MD complaint: R foot pain Onset (ago): week(s) (3) Location: right and lower extremity Radiation: extremity Severity: moderate Quality: aching Pain Consistency: intermittent Relieving factors: immobilization Exacerbating factors: movement Associated symptoms: denies other symptoms Treatments prior to arrival: none Related Data Home Medications ?Medication ?Instructions ?Recorded ?Confirmed alprazolam 0.5 mg tablet 0.5 mg PO DAILY night terrors 01/31/21 06/14/24 albuterol sulfate 90 mcg/actuation 2 puff inhalation Q6H PRN Wheezing 02/03/21 06/14/24 aerosol inhaler (Ventolin HFA) levonorgestrel 21 mcg/24 hr (up to 52 device intrauterine DIRECTED 03/04/22 06/14/24 8 years) 52 mg intrauterine device (Mirena) loratadine 10 mg tablet (Allergy 10 mg PO DAILY PRN Allergy Symptoms 04/15/22 06/14/24 Relief (loratadine)) levetiracetam 1,000 mg tablet 1,000 mg PO BID 12/14/22 06/14/24 sumatriptan succinate 50 mg tablet 50 mg PO DAILY PRN Headache 12/14/22 06/14/24 (Imitrex) amitriptyline 25 mg tablet 25 mg PO BEDTIME 03/02/24 06/14/24 fluticasone propionate 110 2 puff inhalation BID 03/02/24 06/14/24 mcg/actuation HFA aerosol inhaler fluticasone propionate 50 1 spray intranasal BID 03/02/24 06/14/24 mcg/actuation nasal spray,suspension Previous Rx's ?Medication ?Instructions ?Recorded ondansetron 4 mg disintegrating 4 mg PO Q8H PRN nausea and 01/13/24 tablet vomiting #20 tabs omeprazole 20 mg capsule,delayed 20 mg PO DAILY 4 weeks #28 caps 02/14/24 release oxybutynin chloride 10 mg 10 mg PO DAILY #30 tabs 06/28/24 tablet,extended release 24 hr Allergies Allergy/AdvReac Type Severity Reaction Status Date / Time cat dander Allergy Severe Anaphylaxis Verified 07/02/24 19:16 Gadolinium-Containing Allergy Severe Anaphylaxis Verified 07/02/24 19:16 Contrast Medi [GADOLINIUM-CONTAINING CONTRAST] acetaminophen [Percocet] Allergy Intermediate Itching Verified 07/02/24 19:16 fluoxetine [From PROZAC] Allergy Intermediate PALPITATION Verified 07/02/24 19:16 S oxycodone [Percocet] Allergy Intermediate Itching Verified 07/02/24 19:16 paroxetine [Paxil] Allergy Intermediate Palpitation Verified 07/02/24 19:16 s divalproex sodium AdvReac Intermediate Tremor Verified 07/02/24 19:16 [From Depakote] topiramate [From Topamax] AdvReac Intermediate Clouded Verified 07/02/24 19:16 mentation diphenhydramine AdvReac Unknown Lower Verified 07/02/24 19:16 [From Benadryl] seizure threshold Review of Systems 2 Review of Systems: Constitutional : No Fever, No Chills ENT/Mouth : No Ear Pain, No Hoarseness, No sore throat Eyes: No Eye Pain, No Swelling, No Redness, No Foreign Body Cardiovascular : No Chest Pain, No SOB Respiratory : No Cough, No Dyspnea Gastrointestinal : No Nausea, No Vomiting, No Diarrhea, No abdominal Pain Genitourinary : No Dysuria, No Hematuria Musculoskeletal : positive joint pain, No Myalgias, pos Joint Swelling Skin : No Skin lacerations, No rash Neuro : No Weakness, No Numbness, No Loss of Consciousness, No Dizziness, No Headache All other systems reviewed and are negative PMFSH Past Medical History Attestation statement: The following information was validated with the patient. 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 Endometriosis Surgical History Hx of colonoscopy History of esophagogastroduodenoscopy (EGD) Hx of cystoscopy History of left oophorectomy (~2019) History of elective breast augmentation (~2018) History of loop electrical excision procedure (LEEP) Family History Family History Mother History of gastric cancer Breast cancer Maternal Grandmother Ovarian cancer Uterine cancer Cervical cancer Paternal Grandmother Breast cancer Maternal Uncle Pancreatic cancer Maternal Aunt Pancreatic cancer Paternal Uncle Pancreatic cancer Social History Social History Household Members: Family Housing: House Are you a primary behavioral health care coordinator to a significant other at home: Yes (dad) Do you presently have visiting nurse or other home services: No Alcohol intake: current Alcohol intake frequency: holidays/special occasions only Patient Tobacco Use Status: Never used Tobacco Second Hand Smoke Exposure: No service: No Current occupational status: other Gender identity: Female Physical Exam ED Vital Signs: Vital Signs - 24 hr 07/02/24 19:13 Temperature 98.7 F Pulse Rate 99 Respiratory Rate 18 Blood Pressure 141/93 H Pulse Oximetry 100 Oxygen Delivery Method Room Air BMI result Body Mass Index 32.6 Appearance: Alert. Oriented X3. No acute distress. Eyes: Pupils equal, round and reactive to light. ENT: Pharynx normal. Neck: Normal inspection. Neck supple. CVS: Normal heart rate and rhythm. Pulses normal. Respiratory: No respiratory distress. Breath sounds normal. Abdomen: Soft and nontender. Skin: Skin warm and dry. Normal skin color. Normal skin turgor. Extremities: R foot dorsum there is swelling to the dorsum localized and ttp right in midfoot 2+ DP and PT pulses no signs of redness or signs or rash. Neuro: Oriented X 3. No motor deficit. No sensory deficit. Course Course Course Narrative: This is an RME performed by Elly Manzano, FLOUR BROKER: Additional HPI, ROS, PE not included below will be deferred to primary provider. Patient is a 48-year-old female who presents emergency department for evaluation of right lower extremity pain. Reports swelling and right foot pain for the past 3 weeks, she went to an urgent care and was given a prescription for prednisone. The swelling persisted. Now she is experiencing pain to the right calf swelling. She has been having intermittent dizziness associated with this. She states that she was on a 3 hour flight yesterday, otherwise has not been with prolonged immobilization. No personal history of VTE/malignancy Plan: Serum labs, venous duplex ultrasound Medical Decision Making Medical Decision Making [facility] Narrative: 48 yo female with PMH of endometriosis here with R foot swelling no rash no fevers, pulses intact has overuse injury at work it is reproduceable but had calf pain after flying today and felt a little dizzy she was worried about a blood clot at this time DVT study, basic labs, ordered, no CP/SOB ordered. Discussed more concern for stress fracture she declines xray but will call PCP for MRI Differential Diagnosis Differential Diagnoses: The differential diagnosis associated with the presentation includes stress fracture - she declined xray DVT tendonitis Admission/Observation Consideration of admission/observation: Escalation of care including admission/observation considered labs reassuring stable for dc Lab Data [facility] Lab Attestation statement: I reviewed the patient's lab results. 07/02/24 19:39 07/02/24 19:39 Labs: Lab Results 07/02/24 Range/Units 19:39 WBC 12.1 H (4.8-10.8) X10*3/uL RBC 4.22 (4.20-5.50) X10*6/uL Hgb 13.6 (12.0-16.0) g/dl Hct 40.6 (37.0-47.0) % MCV 96.2 (80.0-98.0) fL MCH 32.2 (27.0-33.0) pg MCHC 33.5 (31.0-35.0) g/dl RDW 12.5 (11.0-16.0) % Plt Count 274 (160-400) X10*3/uL MPV 10.2 (9.4-12.3) fL Immature Gran % (Auto) 0.6 H (0.0-0.4) % Neut % (Auto) 69.2 (45-73) % Lymph % (Auto) 22.4 (20-40) % Sebastian % (Auto) 6.5 (2-11) % Eos % (Auto) 1.1 (0-4) % Baso % (Auto) 0.2 (0-2) % Lymph # (Auto) 2.7 (1.2-4.9) X10*3/uL Sebastian # (Auto) 0.8 (0.1-1.2) X10*3/uL Eos # (Auto) 0.1 (0.0-0.4) X10*3/uL Baso # (Auto) 0.0 (0.0-0.2) X10*3/uL Abs Immat Gran (auto) 0.07 H (0.00-0.03) X10*3/uL Absolute Neuts (auto) 8.4 H (2.0-8.3) x10*3/uL Absolute Nucleated RBC 0.000 (0.0-0.012) X10*3/uL Nucleated RBC % (auto) 0.0 (0.0-0.2) /100WBC PT 9.2 L (10.9-12.4) SEC INR 0.8 L (0.9-1.1) Sodium 143 (135-145) mmol/L Potassium 4.5 (3.3-5.1) mmol/L Chloride 105 (96-108) mmol/L Carbon Dioxide 29 (22-29) mmol/L Anion Gap 14 (12-20) BUN 16 (9-16) mg/dL Creatinine 1.07 (0.5-1.4) mg/dL Estim Creat Clear Calc 66.5 Estimated GFR 55 Random Glucose 91 (60-115) mg/dL Calcium 9.6 D (8.4-10.2) mg/dL Total Bilirubin 0.3 (0.0-1.0) mg/dL AST 19 (5-31) U/L ALT 15 (0-31) U/L Alkaline Phosphatase 72 (39-117) U/L Total Protein 7.6 (6.5-8.0) g/dL Albumin 4.2 (3.5-5.0) g/dL Independent Interpretation I performed an independent interpretation of an: Ultrasound (NORMAL ) Radiology Impression Discussion of test interpretation with radiology: I have reviewed the radiologist's reading. Independent Historian Clinical information obtained from an independent historian. History obtained from or confirmed by: Spouse External Record Review External record reviewed: Office record Discharge Plan Discharge Clinical Impression: Acute pain of right foot Patient Disposition: Home, Self-Care Instructions: Arthralgia (ED) Additional Instructions: please return for any worsening symptoms or concerns your ultrasound did not show a blood clot my biggest concern for would be underlying tendon pathology, stress fracture or a neuroma please follow up with your doctor for outpatient MRI Prescriptions: No Action omeprazole 20 mg capsule,delayed release(DR/EC) 20 mg PO DAILY 28 Days Qty: 28 0RF oxybutynin chloride 10 mg tablet extended release 24hr 10 mg PO DAILY Qty: 30 1RF ondansetron 4 mg tablet,disintegrating 4 mg PO Q8H PRN (Reason: nausea and vomiting) Qty: 20 0RF Mirena 20 mcg/24 hours (7 yrs) 52 mg intrauterine device 52 device intrauterine DIRECTED albuterol sulfate [Ventolin HFA] 90 mcg/actuation HFA aerosol inhaler 2 puff inhalation Q6H PRN (Reason: Wheezing) alprazolam 0.5 mg tablet 0.5 mg PO DAILY loratadine [Allergy Relief (loratadine)] 10 mg tablet 10 mg PO DAILY PRN (Reason: Allergy Symptoms) levetiracetam 1,000 mg tablet 1,000 mg PO BID sumatriptan succinate [Imitrex] 50 mg tablet 50 mg PO DAILY PRN (Reason: Headache) fluticasone propionate 50 mcg/actuation spray,suspension 1 spray intranasal BID fluticasone propionate 110 mcg/actuation HFA aerosol inhaler 2 puff inhalation BID amitriptyline 25 mg tablet 25 mg PO BEDTIME Stand Alone Forms: Work/School Release Print Language: Cameroonian
[2024-07-02 19:42] LABS: MANUAL DIFF FLAG NO
[2024-07-02 19:45] LABS: Basophils Percent Auto 0.2 % (0-2); Eosinophils Absolute Auto 0.1 X10*3/uL (0.0-0.4); Eosinophils Percent Auto 1.1 % (0-4); Hematocrit 40.6 % (37.0-47.0); Hemoglobin 13.6 g/dl (12.0-16.0); Imm Gran Abs Auto 0.07 X10*3/uL (0.00-0.03); Imm Gran Pct Auto 0.6 % (0.0-0.4); Lymphocytes Absolute Auto 2.7 X10*3/uL (1.2-4.9); Lymphocytes Percent Auto 22.4 % (20-40); Mean Corpuscular HGB Conc 33.5 g/dl (31.0-35.0); Mean Corpuscular Hemoglobin 32.2 pg (27.0-33.0); Mean Corpuscular Volume 96.2 fL (80.0-98.0); Mean Platelet Volume 10.2 fL (9.4-12.3); Monocytes Absolute Auto 0.8 X10*3/uL (0.1-1.2); Monocytes Percent Auto 6.5 % (2-11); Neutrophils Absolute Auto 8.4 x10*3/uL (2.0-8.3); Neutrophils Percent Auto 69.2 % (45-73); Platelet Count 274 X10*3/uL (160-400); Red Blood Count 4.22 X10*6/uL (4.20-5.50); Red Cell Distribution Width 12.5 % (11.0-16.0); White Blood Count 12.1 X10*3/uL (4.8-10.8)
[2024-07-02 19:50] LABS: INTERNATIONAL NORM RATIO 0.8 (0.9-1.1); Prothrombin Time 9.2 SEC (10.9-12.4)
[2024-07-02 19:57] LABS: Alanine Aminotransferase 15 U/L (0-31); Albumin Level 4.2 g/dL (3.5-5.0); Alkaline Phosphatase 72 U/L (39-117); Anion Gap 14 (12-20); Aspartate Amino Transferase 19 U/L (5-31); Bilirubin Total 0.3 mg/dL (0.0-1.0); Blood Urea Nitrogen 16 mg/dL (9-16); Calcium 9.6 mg/dL (8.4-10.2); Carbon Dioxide 29 mmol/L (22-29); Chloride 105 mmol/L (96-108); Creatinine Clr Calc Pharmacy 66.5; Estimated Glomerular Filt Rate 55; Glucose Random 91 mg/dL (60-115); Potassium 4.5 mmol/L (3.3-5.1); Sodium 143 mmol/L (135-145); Total Protein 7.6 g/dL (6.5-8.0)
[2024-07-02 22:59] VITALS: BP 156/94; PULSE 92; RESP 16; TEMP 36.3; O2SAT 98
--- OUTSIDE RECORDS SUMMARY | 2024-07-02 23:02 | XMS_ITS | Continuity of Care Document ---
Author Organization [facility] Address [address] [place] [id number] Care Team Providers Care Clinical Data Specialist Name Role Phone Jose Alejandro Nichols MD Primary Care Physician Encounter [facility] Date(s): 04/28/22 - 05/28/22 [facility] [address] [place] [id number] Allergies, Adverse Reactions, Alerts Substance Reaction Severity Status Percocet itching Active contrast media (gadolinium-based) Hives Shortness of breath Active Immunizations Given and Recorded Vaccine Date Status Refusal Reason Hepatitis A Adult Vaccine 1 11/27/10 Given Hepatitis A Adult Vaccine 2 05/29/10 Given tetanus/diphtheria/pertussis, acel(Tdap) 05/29/10 Given Typhoid Vaccine, Inactivated 05/29/10 Given 1Admin Note: hep A #2 2Admin Note: hep A #1 Medications Alprazolam 0.5 mg, By Mouth, Daily at bedtime, PRN, Maintenance, as needed for anxiety, 05/29/10 12:43:59 EDT Start Date: 05/29/10 Status: Ordered diclofenac 1% topical gel 1 application, Topically, 4 times a day, PRN Pain , Mild, # 100 Gm, 0 Refills, Maintenance, 01/08/21 13:02:00 EDT, Gel, [facility], Partial fill upon patient request if the prescriptionis for a schedule II opioid drug., 160, cm, ... Start Date: 01/08/21 Status: Ordered Flonase 50 mcg/inh nasal spray 1 sprays, Nares, Both, 2 times a day, # 16 Gm, 11 Refills, Maintenance, 04/02/22 16:13:00 EDT, [place], [id number], Partial fill upon patient request if the prescription is for a schedule II opioid drug., 1 sprays Nares, Both 2 times a day, 160,... Start Date: 04/02/22 Status: Ordered Flovent HFA 110 mcg/inh inhalation aerosol 2 puffs, Inhalation, 2 times a day, for 30 days, RINSE MOUTH/THROAT AFTER USE, # 1 each, 11 Refills, Physician Stop 03/28/23 16:12:00 EDT, 04/02/22 16:12:00 EDT, [facility]/pharmacy #[id number], 160, cm, 04/02/2215:54:00 EDT, Height, 70.8, kg, 01/07/21 12:41:00 E... Start Date: 04/02/22 Stop Date: 03/28/23 Status: Ordered gabapentin 300 mg oral capsule 5 capsules, By Mouth, Daily at bedtime, Refills 0, Maintenance, 01/26/20 8:37:00 EDT Start Date: 01/26/20 Status: Ordered Keppra 250 mg oral tablet 1 tablet = 250 mg, By Mouth, 2 times a day, 0 Refills, Maintenance, 04/10/21 11:01:00 EDT, Partial fill upon patient request if the prescription is for a schedule II opioid drug. Start Date: 04/10/21 Status: Ordered Keppra 750 mg oral tablet 1 tablet = 750 mg, By Mouth, 2 times a day, 0 Refills, Maintenance, 04/02/22 15:57:00 EDT, Partial fill upon patient request if the prescription is for a schedule II opioid drug. Start Date: 04/02/22 Status: Ordered Lexapro 10 mg oral tablet 1 tablet = 10 mg, By Mouth, Daily, 0 Refills, Maintenance, 04/02/22 15:56:00 EDT, Partial fill uponpatient request if the prescription is for a schedule II opioid drug. Start Date: 04/02/22 Status: Ordered lidocaine 5% topical film 1 patch, Topically, Daily, PRN Pain , Mild, remove after 12 hours, # 13 each, 0 Refills, Maintenance, 08/11/21 13:47:00 EST, [place], [facility]/pharmacy #[id number], Partial fill upon patient request if the prescription is for a schedule II opioid drug., 1 patch Top... Start Date: 08/11/21 Status: Ordered loratadine 10 mg oral tablet 10 mg, 1, tablet, By Mouth, Daily, # 30 tablet, Refills 11, Tot. Refills 11, Maintenance, 04/02/22 16:13:00 EDT, Route to Pharmacy Electronically, [id number], Partial fill upon patient request if the prescription is for a schedule II opioid dr... Start Date: 04/02/22 Status: Ordered Restasis 0.05% ophthalmic emulsion 0 Refills, Maintenance, 04/10/21 11:02:00 EDT, Partial fill upon patient request if the prescription is for a schedule II opioid drug. Start Date: 04/10/21 Status: Ordered tamoxifen 20 mg oral tablet 1 tablet = 20 mg, By Mouth, Daily at bedtime, # 30 tablet, 0 Refills, Maintenance, 01/26/20 8:38:00EDT, Tablet Start Date: 01/26/20 Status: Ordered Tylenol 325 mg oral tablet 325 mg, 1, tablet, By Mouth, Every 4 hours, PRN, # 60 tablet, Refills 0, Tot. Refills 0, Maintenance, for pain, 08/11/21 13:49:00 EST, Route to Pharmacy Electronically, [facility]acy #[id number], Partial fill upon patient request if the prescription is for a... Start Date: 08/11/21 Status: Ordered Tylenol 325 mg oral tablet 650 mg, 2, tablet, By Mouth, Every 8 hours, PRN, Refills 0, Maintenance, Pain , Moderate, 01/08/21 13:10:00 EDT, Partial fill upon patient request if the prescription is for a schedule II opioid drug. Start Date: 01/08/21 Status: Ordered Ventolin HFA 108 mcg/inh inhalation aerosol with adapter 2 puffs, Inhalation, Every 6 hours, PRN Wheezing/Shortness of Breath, prn, # 8 Gm, 11 Refills, Maintenance, 04/02/22 16:12:00 EDT, [place], [facility]/pharmacy #[id number], Partial fill upon patient request if the prescription is for a schedule II opioid drug., 16... Start Date: 04/02/22 Status: Ordered Voltaren 1% topical gel 1 application, Topically, 4 times a day, PRN for pain, # 100 Gm, 0 Refills, Maintenance, 08/11/21 13:48:00 EST, Gel, [id number], Partial fill upon patient request if the prescription is for aschedule II opioid drug., 1 application Topically 4... Start Date: 08/11/21 Status: Ordered Problem List Condition Effective Dates Status Health Status Inform ant At risk of breast cancer(Confirmed) Active Interstitial cystitis(Confirmed) Active Complex partial seizures(Confirmed) Active Cough(Confirmed) Active Endometriosis(Confirmed) Active Pelvic pain(Confirmed) Active Follow-up examination after gynecological surgery(Confirmed) Active Social History Social History Type Response Smoking Status Never (less than 100 in lifetime) entered on: 01/23/20 Sex Care Team Personnel Name: Jose Alejandro Nichols MD Address: [address] [place] [address], [address] [facility] [place], [place] [address]
--- OUTSIDE RECORDS SUMMARY | 2024-07-02 23:02 | XMS_ITS | Continuity of Care Document ---
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 Name Role Phone Jose Alejandro Nichols MD Primary Care Physician Encounter [facility] [place] [facility] Date(s): 10/28/22 - 11/27/22 [facility] [address] [place] [id number] Allergies, Adverse Reactions, Alerts Substance [...] #2 2Admin Note: hep A #1 Medications albuterol 0.083% inhalation solution 3 mL = 2.5 mg, Inhalation, Every 6 hours, PRN for wheezing/shortness of breath, # 360 mL, 11 Refills, Maintenance, 10/28/22 9:01:00 EST, [place], [id number], Partial fill upon patient request if the prescription is for a schedule II opioid . Start Date: 10/28/22 Status: Ordered Alprazolam 0.5 mg, By Mouth, Daily at bedtime, PRN, Maintenance, as needed for anxiety, 05/29/10 12:43:59 EDT Start Date: 05/29/10 Status: Ordered diclofenac 1% topical gel 1 application, Topically, 4 times a day, PRN Pain , Mild, # 100 Gm, 0 Refills, Maintenance, 01/08/21 13:02:00 EDT, Gel, [facility], Partial fill upon patient request if the prescriptionis for a schedule II opioid drug., 160, cm, ... Start Date: 01/08/21 Status: Ordered EpiPen 2-Regan = 0.3 mg, Intramuscular, Once, 0 Refills, Maintenance, 07/28/22 11:35:00 EDT, Partial fill upon patient request if the prescription is for a schedule II opioid drug. Start Date: 07/28/22 Status: Ordered Flonase 50 mcg/inh nasal spray 1 sprays, Nares, Both, 2 times a day, # 16 Gm, 11 Refills, Maintenance, 04/02/22 16:13:00 EDT, [place], [id number], Partial fill upon patient request [...] Stop 03/28/23 16:12:00 EDT, 04/02/22 16:12:00 EDT, [id number], 160, cm, 04/02/2215:54:00 EDT, Height, [...] 0 Refills, Maintenance, 08/11/21 13:47:00 EST, [place], [id number], Partial fill upon patient request if the prescription is for a schedule II opioid drug., 1 patch Top... Start Date: 08/11/21 Status: Ordered loratadine 10 mg oral tablet 10 mg, 1, tablet, By Mouth, Daily, # 30 tablet, Refills 11, Tot. Refills 11, Maintenance, 04/02/22 16:13:00 EDT, [id number] Partial fill upon patient request if the prescription is for a schedule II opioid dr... Start Date: 04/02/22 Status: Ordered Nebulizer/Compressor See Instructions, # 1 each, Refills 11, Tot. Refills 11, Maintenance, E0570 Nebulizer A7003 Neb Disp Set A7014 Neb non-Disp Filter A7005 Neb Non-Disp set A7015 Aerosol Mask A7013 Neb Disp Filter length of need lifetime 99 months for home use, 10/05... Start Date: 10/28/22 Status: Ordered Restasis 0.05% ophthalmic emulsion 0 [...] 08/11/21 13:49:00 EST, Route to Pharmacy Electronically, [id number], Partial fill upon patient request [...] 11 Refills, Maintenance, 04/02/22 16:12:00 EDT, Inhaler, [id number], Partial fill upon patient request if the prescription is for a schedule II opioid drug., 16... Start Date: 04/02/22 Status: Ordered Voltaren 1% topical gel 1 application, Topically, 4 times a day, PRN for pain, # 100 Gm, 0 Refills, Maintenance, 08/11/21 13:48:00 EST, Gel, [id number], Partial fill upon patient request if the prescription is for aschedule II opioid drug., 1 application Topically 4... Start Date: 08/11/21 Status: Ordered Problem List Condition Confirmation Course Effective Dates Status H ealth Status Informant At risk of breast cancer Confirmed Active Interstitial cystitis Confirmed Active Complex partial seizures Confirmed Active Cough Confirmed Active Endometriosis Confirmed Active Pelvic pain Confirmed Active Follow-up examination after gynecological surgery Confirmed Active Social History Social History Type Response Smoking Status Never (less than 100 in lifetime) entered on: 01/23/20 Sex Patient Care team information Care Team Personnel Name: Meli Franks NP Position: [facility] Associate Professional Member Role: Primary Care Nurse Address: Address: [address] [place] [id number] Name: Sujatha Sales RN Position: [facility] RN Member Role: Primary Care Nurse Name: Glenna Shea RN Position: S RN Member Role: Primary Care Nurse Name: Jose Alejandro Nicohls MD Position: [facility] Physician (General Medicine) Member Role: PCP Address: Address: [address] [place] [address], [address] [facility] [place] [address]- Care Team Related Persons Name: PARESH DAMON Address: home [address] [place] [id number] Name: DIANA ALMANZA Address: home [address] [place] [id number]
--- OUTSIDE RECORDS SUMMARY | 2024-07-02 23:02 | XMS_ITS | Continuity of Care Document ---
Author Organization [facility] ter Address [address] [place] [address]- Care Team Providers Care Stock Layer Name Role Phone Simone MCGOWAN, Jose Alejandro Joyce Primary Care Physician Encounter [facility] Date(s): 01/30/20 - 03/01/[address] [address]- [facility] Attending Physician: Rosalino Meyer MD Admitting Physician: Rosalino Meyer MD Allergies, Adverse Reactions, Alerts Substance Reaction Severity [...] 12:43:59 EDT Start Date: 05/29/10 Status: Ordered docusate-senna 50 mg-187 mg oral tablet 2 tablet, By Mouth, Daily at bedtime, # 20 tablet, 0 Refills, Maintenance, 01/31/20 9:15:00 EDT, Tablet, [facility], 2 tablet By Mouth Daily at bedtime, 160.02, cm, 01/26/20 9:07:00 EDT, Height, 70.4, kg, 01/31/20 6:31:00 EDT, Dry Weight Start Date: 01/31/20 Status: Ordered gabapentin 300 mg oral capsule 5 capsules, By Mouth, Daily at bedtime, Refills 0, Maintenance, 01/26/20 8:37:00 EDT Start Date: 01/26/20 Status: Ordered ibuprofen 800 mg oral tablet 800 mg, 1, tablet, By Mouth, Every 8 hours, # 30 tablet, Refills 0, Tot. Refills 0, Maintenance, 01/31/20 9:15:00 EDT, Route to Pharmacy Electronically, [facility], 160.02, cm, 209:07:00 EDT, Height, 70.4, kg, 01/31/20 6:31:00 EDT... Start Date: 01/31/20 Status: Ordered metroNIDAZOLE 0.75% topical gel 1 application, Vaginally, Daily at bedtime, # 45 Gm, 0 Refills, Maintenance, 02/21/20 14:19:00 EDT,[id number], 1 application Vaginally Daily at bedtime,x5 days, 160.02, cm, 02/19/2010:19:00 EDT, Height, 69.9, kg, 02/20/20 10:19:00 E... Start Date: 02/21/20 Stop Date: 02/26/20 Status: Ordered predniSONE 50 mg oral tablet 1 tablet = 50 mg, By Mouth, Daily, TAKE 1 TAB 13 HOURS, PRIOR TO SCAN , TAKE 1 TAB 7 HOURS PRIOR TOSCAN AND TAKE LAST TAB 1 HOURS PRIOR TO SCAN., # 3 tablet, 0 Refills, Maintenance, 02/21/20 14:06:00 EDT, [facility][id number], 160.02, cm, 02/01... Start Date: 02/21/20 Status: Ordered simethicone 80 mg oral tablet 1 tablet = 80 mg, Chew, 5 times a day, PRN as needed for gas, # 60 tablet, 0 Refills, Maintenance, 02/02/20 14:54:00 EDT, Tablet, [facility], 160.02, cm, 02/02/20 14:40:00 EDT, Height, 68.18, kg, 02/02/20 14:40:00 EDT, Dry Weight Start Date: 02/02/20 Status: Ordered tamoxifen 20 mg oral tablet 1 tablet = 20 mg, By Mouth, Daily at bedtime, # 30 tablet, 0 Refills, Maintenance, 01/26/20 8:38:00EDT, Tablet Start Date: 01/26/20 Status: Ordered Problem List Condition Effective Dates Status Health Status Inform ant At risk of breast cancer(Confirmed) Active Interstitial cystitis(Confirmed) Active Complex partial seizures(Confirmed) Active Endometriosis(Confirmed) Active Pelvic pain(Confirmed) Active Follow-up examination after gynecological surgery(Confirmed) Active Vital Signs Most recent to oldest [Reference Range]: 1 Weight 70.4 kg (01/31/20 6:31 AM) Oxygen Saturation [94-100 %] 100 % (01/31/20 6:31 AM) Pulse Rate [55-90 bpm] 76 bpm (01/31/20 6:31 AM) Blood Pressure [90-138/55-84 mm Hg] 118/ 71mm Hg (01/31/20 6:31 AM) Respiratory Rate [16-30 br/min] 20 br/mi n (01/31/20 6:31 AM) Temperature [96.8-100.4 DegF] 98.5 DegF (01/31/20 6:31 AM) Mode of Delivery (Oxygen) Room air (01/31/20 6:31 AM) Blood pressure sites Arm, left (01/31/20 6:31 AM) Temperature Route Temporal (01/31/20 6:31 AM) Dry Weight 70.4 kg (01/31/20 6:31 AM) Weight Obtained Via Standing scale (01/31/20 6:31 AM) Dry Weight Obtained Via Standing scale (01/31/20 6:31 AM) Social History Social History Type Response Smoking Status Never (less than 100 in lifetime) entered on: 01/23/20 Sex
--- OUTSIDE RECORDS SUMMARY | 2024-07-02 23:02 | XMS_ITS | Continuity of Care Document ---
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 Name Role Phone Jose Alejandro Nichols MD Primary Care Physician [phone] [place] [facility] [place](s): 01/25/20 - 02/01/20 [facility]PER[facility] Oncology [address] [place] [address]- [facility] Attending Physician: Rosalino Meyer MD Referring Physician: Jose Alejnadro Nichols MD Allergies, Adverse Reactions, Alerts Substance Reaction Severity Status Percocet itching Active contrast media (gadolinium-based) Hives Shortness of breath Active Immunizations Given and Recorded Vaccine Date Status Refusal Reason Hepatitis A Adult Vaccine 1 11/27/10 Given Hepatitis A Adult Vaccine 2 05/29/10 Given tetanus/diphtheria/pertussis, acel(Tdap) 05/29/10 Given Typhoid Vaccine, Inactivated 05/29/10 Given 1Admin Note: hep A #2 2Admin Note: hep A #1 Medications acetaminophen-hydrocodone 300 mg-5 mg oral tablet 1 tablet, By Mouth, Every 6 hours, PRN for pain, for 3 days, # 12 tablet, 0 Refills, Acute 02/02/2010:30:00 EDT, 01/31/20 10:30:00 EDT, Tablet, [facility], Partial fill upon patient request, 1 tablet By Mouth Every 6 hours,x3 days,PRN:f... Start Date: 01/31/20 Stop Date: 02/03/20 Status: Ordered Alprazolam 0.5 mg, By Mouth, Daily at bedtime, PRN, Maintenance, as needed for anxiety, 05/29/10 12:43:59 EDT Start Date: 05/29/10 Status: Ordered docusate-senna 50 mg-187 mg oral tablet 2 tablet, By Mouth, Daily at bedtime, # 20 tablet, 0 Refills, Maintenance, 01/31/20 9:15:00 EDT, Tablet, [facility], 2 tablet By Mouth Daily at [...] 01/31/20 9:15:00 EDT, Route to Pharmacy Electronically, [facility], 160.02, cm, 209:07:00 EDT, Height, 70.4, kg, 01/31/20 6:31:00 EDT... Start Date: 01/31/20 Status: Ordered tamoxifen 20 mg oral tablet 1 tablet = 20 mg, By Mouth, Daily at bedtime, # 30 tablet, 0 Refills, Maintenance, 01/26/20 8:38:00EDT, Tablet Start Date: 01/26/20 Status: Ordered Problem List Condition Effective Dates Status Health Status Inform ant At risk of breast cancer(Confirmed) Active Interstitial cystitis(Confirmed) Active Complex partial seizures(Confirmed) Active Endometriosis(Confirmed) Active Procedures Procedure Date Related Diagnosis Body Site Status Hydrodistension of bladder Completed Laparoscopy 1 Completed LEEP (Loop electrosurgical e xcision procedure) of cervix Completed 1for endometriosis Social History Social History Type Response Smoking Status Never (less than 100 in lifetime) entered on: 01/23/20 Sex
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
--- OUTSIDE RECORDS SUMMARY | 2024-07-02 23:02 | XMS_ITS | Continuity of Care Document ---
Author Organization [facility] Address [address] [place] [address]- Care Team Providers Care Healthcare Receptionist Name Role Phone Jose Alejandro Nichols MD Primary Care Physician [phone] [place] [facility] [place] 08/26/23 [facility] [address] [place] [id number] Attending Physician: Cherri Urena MD Admitting Physician: Cherri rUena MD Referring Physician: Jose Alejandro Nichols MD Allergies, Adverse Reactions, Alerts Substance [...] 0 Refills, Maintenance, 01/08/21 13:02:00 EDT, Gel, [facility], Partial fill upon patient request if the prescriptionis for a schedule II opioid drug., 160, cm, ... Start Date: 01/08/21 Status: Ordered EpiPen 2-Regan = 0.3 mg, Intramuscular, Once, 0 Refills, Maintenance, 07/28/22 11:35:00 EDT, Partial fill upon patient request if the prescription is for a schedule II opioid drug. Start Date: 07/28/22 Status: Ordered Flovent HFA 110 mcg/inh inhalation aerosol 2 puffs, Inhalation, 2 times a day, /THROAT AFTER USE., # 12 each, 11 Refills, Maintenance, 04/17/23 10:10:00 EDT, [id number], 160, cm, 07/28/22 11:33:00 EDT, Height Start Date: 04/17/23 Status: Ordered fluticasone 50 mcg/inh nasal spray See Instructions, USE 1 SPRAY IN EACH NOSTRIL TWICE A DAY, # 48 mL, 3 Refills, Maintenance, 05/05/23 13:18:00 EDT, [facility] [id number], 90, USE 1 SPRAY IN EACH NOSTRIL TWICE A DAY, 160, cm, 07/28/22 11:33:00 EDT, Height Start Date: 05/05/23 Status: Ordered gabapentin 300 mg oral capsule [...] 0 Refills, Maintenance, 08/11/21 13:47:00 EST, Film, [facility]/pharmacy #[id number], Partial fill upon patient request if the prescription is for a schedule II opioid drug., 1 patch Top... Start Date: 08/11/21 Status: Ordered loratadine 10 mg oral tablet 1, tablet, By Mouth, Daily, # 90 tablet, Refills 3, Maintenance, 05/05/23 13:18:00 EDT, Route to Pharmacy Electronically, [id number], 160, cm, 07/28/22 11:33:00 EDT, Height Start Date: 05/05/23 Status: Ordered Nebulizer/Compressor See Instructions, # 1 [...] 08/11/21 13:49:00 EST, Route to Pharmacy Electronically, [facility]/pharmacy #[id number], Partial fill upon patient request if [...] 2 puffs, Inhalation, Every 6 hours, PRN NEEDED FOR WHEEZING/SHORTNESS OF BREATH, # 18 each, 11 Refills, Maintenance, 04/05/23 8:41:00 EDT, [id number], 160, cm, 07/28/22 11:33:00 EDT, Height Start Date: 04/05/23 Status: Ordered Voltaren 1% topical gel 1 [...] Care team information Care Team Personnel Name: Tiny MUKHERJEE, Meli Phelan Position: [facility] Associate Professional Member Role: Primary Care Nurse Address: Address: [address] [place] [id number] Name: Sujatha Sales RN Position: [facility] RN Member Role: Primary Care Nurse Name: Glenna Shea RN Position: S RN Member Role: Primary Care Nurse Name: Jose Alejandro Nichols MD Position: [facility] Physician - Primary Care Member Role: PCP Address: Address: [address] [place] [address], [address] [place], [place] [address] Care Team Related Persons Name: PARESH DAMON Address: home [address] [place] [address] Name: DIANA ALMANZA Address: home [address] [place] [address]
--- OUTSIDE RECORDS SUMMARY | 2024-07-02 23:02 | XMS_ITS | Continuity of Care Document ---
Author Organization [facility] Address [address] [place] [address]- Care Team Providers Care Automotive Parts Counterperson Name Role Phone Simone MCGOWAN, Jose Alejandro Joyce Primary Care Physician [place] [facility] [place] 03[place]20 [facility] [address] [place] [address]- [facility] Attending Physician: Wei Grant Admitting Physician: Wei Grant Referring Physician: AdmtrWei Allergies, Adverse Reactions, Alerts Substance Reaction Severity [...] 0 Refills, Maintenance, 01/31/20 9:15:00 EDT, Tablet, [facility], 2 tablet By Mouth Daily [...] 01/31/20 9:15:00 EDT, Route to Pharmacy Electronically, [facility], 160.02, cm, 209:07:00 EDT, Height, 70.4, kg, 01/31/20 6:31:00 EDT... Start Date: 01/31/20 Status: Ordered metroNIDAZOLE 0.75% topical gel 1 application, Vaginally, Daily at bedtime, # 45 Gm, 0 Refills, Maintenance, 02/21/20 14:19:00 EDT,[id number], 1 application Vaginally Daily at bedtime,x5 days, [...] tablet, 0 Refills, Maintenance, 02/21/20 14:06:00 EDT, [facility][id number], 160.02, cm, 02/01... Start Date: 02/21/20 Status: Ordered simethicone 80 mg oral tablet 1 tablet = 80 mg, Chew, 5 times a day, PRN as needed for gas, # 60 tablet, 0 Refills, Maintenance, 02/02/20 14:54:00 EDT, Tablet, [facility], 160.02, cm, 02/02/20 14:40:00 EDT, [...]
--- OUTSIDE RECORDS SUMMARY | 2024-07-02 23:02 | XMS_ITS | Continuity of Care Document ---
Author Organization [facility]END[facility] HELPER Oncolog y Address [address] [place] [address]- Care Team Providers Care Supervisor Ski Production Name Role Phone Simone MCGOWAN, Jose Alejandro Joyce Primary Care Physician [phone] Encounter [facility] [place] Date(s): 01/15/20 - 02/17/20 [facility]END[facility] HELPER Oncology [address] [place] [address]- [facility] Attending Physician: Rosalino Meyer MD Admitting Physician: Rosalino Meyer MD Referring Physician: Ralph De La Torre MD Allergies, Adverse Reactions, Alerts Substance Reaction [...] 0 Refills, Maintenance, 01/31/20 9:15:00 EDT, Tablet, [facility], 2 tablet By Mouth [...] 01/31/20 9:15:00 EDT, Route to Pharmacy Electronically, [facility], 160.02, cm, 209:07:00 EDT, Height, 70.4, kg, 01/31/20 6:31:00 EDT... Start Date: 01/31/20 Status: Ordered simethicone 80 mg oral tablet 1 tablet = 80 mg, Chew, 5 times a day, PRN as needed for gas, # 60 tablet, 0 Refills, Maintenance, 02/02/20 14:54:00 EDT, Tablet, [facility], 160.02, cm, 02/02/20 14:40:00 [...] Active Complex partial seizures(Confirmed) Active Endometriosis(Confirmed) Active Follow-up examination after gynecological surgery(Confirmed) Active Social History Social History Type Response Smoking Status Never (less than 100 in lifetime) entered on: 01/23/20 Sex
--- OUTSIDE RECORDS SUMMARY | 2024-07-02 23:02 | XMS_ITS | Continuity of Care Document ---
Author Organization [facility] Address [address] [place] [address]- Care Team Providers Care Plaster Lather Name Role Phone Jose Alejandro Nichols MD Primary Care Physician En[place] [facility] [place](s[place] 07/27/23 - 08/26/23 [facility] [address] [place] [address] [place] Attending Physician: Wei Grant Admitting Physician: AdmtrWei Referring Physician: Admtr, ArBraxton Allergies, Adverse Reactions, Alerts Substance Reaction Severity [...] 0 Refills, Maintenance, 01/08/21 13:02:00 EDT, Gel, [facility], Partial fill upon patient request if the prescriptionis for a schedule II opioid drug., 160, cm, 2... Start Date: 01/08/21 Status: Ordered EpiPen 2-Regan = 0.3 mg, Intramuscular, Once, 0 Refills, Maintenance, 07/28/22 11:35:00 EDT, Partial fill upon patient request if the prescription is for a schedule II opioid drug. Start Date: 07/28/22 Status: Ordered Flovent HFA 110 mcg/inh inhalation aerosol 2 puffs, Inhalation, 2 times a day, /THROAT AFTER USE., # 12 each, 11 Refills, Maintenance, 04/17/23 10:10:00 EDT, [facility], 160, cm, 07/28/22 11:33:00 EDT, Height Start Date: 04/17/23 Status: Ordered fluticasone 50 mcg/inh nasal spray See Instructions, USE 1 SPRAY IN EACH NOSTRIL TWICE A DAY, # 48 mL, 3 Refills, Maintenance, 05/05/23 13:18:00 EDT, [facility], 90, USE 1 SPRAY IN EACH NOSTRIL [...] 0 Refills, Maintenance, 08/11/21 13:47:00 EST, Film, [facility]/pharmacy #[id number], Partial fill upon patient request if the prescription is for a schedule II opioid drug., 1 patch Top... Start Date: 08/11/21 Status: Ordered loratadine 10 mg oral tablet 1, tablet, By Mouth, Daily, # 90 tablet, Refills 3, Maintenance, 05/05/23 13:18:00 EDT, Route to Pharmacy Electronically, [facility] 89515, 160, cm, 07/28/22 11:33:00 EDT, Height Start [...] 08/11/21 13:49:00 EST, Route to Pharmacy Electronically, [facility]/pharmacy #[id number], Partial fill upon patient request if [...] Refills, Maintenance, 04/05/23 8:41:00 EDT, [facility], 160, cm, 07/28/22 11:33:00 EDT, Height Start Date: 04/05/23 Status: Ordered Voltaren 1% topical gel 1 application, Topically, 4 times a day, PRN for pain, # 100 Gm, 0 Refills, Maintenance, 08/11/21 13:48:00 EST, Gel, [facility]/pharmacy #[id number], Partial fill upon patient request if the [...] Personnel Name: Tiny MUKHERJEE, Meli Phelan Position: [facility] Associate Professional Member Role: Primary Care Nurse Address: Address: [address] [place] [address] Name: Sujatha Sales RN Position: [facility] RN Member Role: Primary Care Nurse Name: Glenna Shea RN Position: S RN Member Role: Primary Care Nurse Name: Jose Alejandro Nichols MD Position: [facility] Physician - Primary Care Member Role: PCP Address: Address: [address] [place] [address], [address] [place], [place] [address] Care Team Related Persons Name: PARESH DAMON Address: home [address] [place] [address] Name: DIANA ALMANZA Address: home [address] [place] [address]
--- OUTSIDE RECORDS SUMMARY | 2024-07-02 23:02 | XMS_ITS | Continuity of Care Document ---
Author Organization [facility] ASSISTANT Oncolog y Address [address] [place] [address]- Care Team Providers Care Sports Internship Name Role Phone Jose Alejandro Nichols MD Primary Care Physician [phone] [place] [facility] [place] 02/09/20 - 02/16/20 [facility] ASSIST[facility] Oncology [address] [place] [address]- [facility] Attending Physician: Rosalino Meyer MD Admitting Physician: Rosalino Meyer MD Referring Physician: Jose Alejandro Nichols MD [...] Refills, Maintenance, 01/31/20 9:15:00 EDT, Tablet, [facility], 2 tablet By Mouth Daily [...] 9:15:00 EDT, Route to Pharmacy Electronically, [facility], 160.02, cm, 209:07:00 EDT, Height, 70.4, kg, 01/31/20 6:31:00 EDT... Start Date: 01/31/20 Status: Ordered simethicone 80 mg oral tablet 1 tablet = 80 mg, Chew, 5 times a day, PRN as needed for gas, # 60 tablet, 0 Refills, Maintenance, 02/02/20 14:54:00 EDT, Tablet, [facility], 160.02, cm, 02/02/20 14:40:00 EDT, [...]
--- OUTSIDE RECORDS SUMMARY | 2024-07-02 23:02 | XMS_ITS | Continuity of Care Document ---
Author Organization [facility] Address [address] [place] [id number]- Care Team Providers Care Java Tech Name Role Phone Simone MCGOWAN, Jose Alejandro Joyce Primary Care Physician Encounter [facility] Date(s): 01/07/21 - 02/06/[address] [id number] Attending Physician: Not on Staff, Attending MD Admitting Physician: Not on Staff, Admitting MD Referring Physician: Not on Staff, Referring [...] Refills, Maintenance, 01/08/21 13:02:00 EDT, Gel, [facility], Partial fill upon patient request if the prescriptionis for a schedule II opioid drug., 160, cm, ... Start Date: 01/08/21 Status: Ordered gabapentin 300 mg oral capsule 5 capsules, By Mouth, Daily at bedtime, Refills 0, Maintenance, 01/26/20 8:37:00 EDT Start Date: 01/26/20 Status: Ordered tamoxifen 20 mg oral tablet [...] opioid drug. Start Date: 01/08/21 Status: Ordered Problem List Condition Effective Dates Status Health Status Inform ant At risk of breast cancer(Confirmed) Active Interstitial cystitis(Confirmed) Active Complex partial seizures(Confirmed) Active Endometriosis(Confirmed) Active Pelvic pain(Confirmed) Active Follow-up examination after gynecological surgery(Confirmed) Active Social History Social History Type Response Smoking Status Never (less than 100 in lifetime) entered on: 01/23/20 Sex
--- OUTSIDE RECORDS SUMMARY | 2024-07-02 23:03 | XMS_ITS | Continuity of Care Document ---
Author Organization [facility] ter Address [address] [place] [id number]- Care Team Providers Care Gang Head Saw Operator Name Role Phone Jose Alejandro Nichols MD Primary Care Physician Encounter [facility] Date(s): 01/31/20 - 01/31/[address] [address]- [facility] Discharge Disposition: A-D/C Home Attending Physician: Rosalino Meyer MD Admitting Physician: Rosalino Meyer MD Referring Physician: Rosalino Meyer MD Allergies, Adverse Reactions, [...] Acute 02/02/2010:30:00 EDT, 01/31/20 10:30:00 EDT, Tablet, [facility], Partial fill upon patient request, [...] 0 Refills, Maintenance, 01/31/20 9:15:00 EDT, Tablet, [facility], 2 tablet By Mouth Daily at [...] 01/31/20 9:15:00 EDT, Route to Pharmacy Electronically, [facility], 160.02, cm, 209:07:00 EDT, Height, [...] Active Complex partial seizures(Confirmed) Active Endometriosis(Confirmed) Active Vital Signs Most recent to oldest [Reference Range]: 1 2 3 Height 160.02 cm (01/26/20 9:07 AM) Weight 68.64 kg (01/26/20 9:07 AM) Oxygen Saturation [94-100 %] 99 % (01/31/20 12:30 PM) 99 % (01/31/20 12:15 PM) 100 % (01/31/20 12:11 PM) Body Mass Index [18.5-24.99] 26.81 *H* (01/26/20 9:07 AM) Blood Pressure [90-138/55-84 mm Hg] 123/75mm Hg (01/31/20 12:11 PM) 108/78mm Hg (01/31/20 12:00 PM) 101/67mm Hg (01/31/20 11:45 AM) Respiratory Rate [16-30 br/min] 20 br/min (01/31/20 12:15 PM) 12 br/min *L* (01/31/20 12:11 PM) 16 br/min (01/31/20 12:00 PM) Temperature [96.8-100.4 DegF] 97.7 DegF (01/31/20 12:00 PM) 97.2 DegF (01/31/20 9:12 AM) Liters per Minute 2 L/min (01/31/20 11:15 AM) 2 L/min (01/31/20 11:00 AM) 2 L/min (01/31/20 10:45 AM) Mode of Delivery (Oxygen) Room air (01/31/20 12:30 PM) Room air (01/31/20 12:15 PM) Room air (01/31/20 12:00 PM) Temperature Route Temporal (01/31/20 12:00 PM) Temporal (01/31/20 9:12 AM) Dry Weight 68.64 kg (01/26/20 9:07 AM) Weight Obtained Via Patient/family state d (01/26/20 9:07 AM) Dry Weight Obtained Via Patient/family s tated (01/26/20 9:07 AM) Social History Social History Type Response Smoking Status Never (less than 100 in lifetime) entered on: 01/23/20 Sex
--- OUTSIDE RECORDS SUMMARY | 2024-07-02 23:03 | XMS_ITS | Continuity of Care Document ---
Author Organization [facility] Address [address] [place] [id number]- Care Team Providers Care Mattress Stuffer Name Role Phone Jose Alejandro Nichols MD Primary Care Physician [phone] Encounter [facility] Date(s): 07/16/21 - 01/01/22 [facility] [address] [place] [id number] Attending Physician: Cherri Urena MD Admitting Physician: Cherri Urena MD Referring Physician: Jose Alejandro Nichols MD [...] 0 Refills, Maintenance, 01/08/21 13:02:00 EDT, Gel, [facility], Partial fill upon patient request if the prescriptionis for a schedule II opioid drug., 160, cm, ... Start Date: 01/08/21 Status: Ordered Flovent HFA 110 mcg/inh inhalation aerosol 2 puffs, Inhalation, 2 times a day, RINSE MOUTH/THROAT AFTER USE, # 12 each, 3 Refills, [id number], 160, cm, 04/10/21 10:58:00 EDT, Height, 70.8, kg, 01/07/21 12:41:00 EDT, Dry Weight Start Date: 08/21/21 Status: Ordered gabapentin 300 mg oral capsule [...] 0 Refills, Maintenance, 08/11/21 13:47:00 EST, Film, [id number], Partial fill upon patient request if [...] 08/11/21 13:49:00 EST, Route to Pharmacy Electronically, [facility][id number], Partial fill upon patient request if [...] Refills, Maintenance, 08/11/21 13:48:00 EST, Gel, [id number], Partial fill upon patient request if the [...]
--- OUTSIDE RECORDS SUMMARY | 2024-07-02 23:03 | XMS_ITS | Continuity of Care Document ---
Author Organization [facility] Address [address] [place] [address]- Care Team Providers Care Paper Sales Manager Name Role Phone Not on Staff, PCP Primary Care Physician Unavail able Encounter [facility] Date(s): 01/12/20 - 01/22/20 [facility]ORD[facility] On[facility] [address] [place] [address]- [facility] Attending Physician: Wei Grant Admitting Physician: Wei Grant Referring Physician: Wei Grant
--- OUTSIDE RECORDS SUMMARY | 2024-07-02 23:03 | XMS_ITS | Continuity of Care Document ---
Author Organization [facility] Address [address] [place] [address]- Care Team Providers Care Test Fixture Designer Name Role Phone Simone MCGOWAN, Jose Alejandro Joyec Primary Care Physician [phone] Encounter [facility] Date(s): 12/02/21 - 01/01/22 [facility] [address] [place] [address] Attending Physician: Wei Grant Admitting Physician: AdmtrWei Referring Physician: Admtr, Ar8 Allergies, Adverse Reactions, Alerts Substance Reaction Severity [...] 0 Refills, Maintenance, 01/08/21 13:02:00 EDT, Gel, [facility], Partial fill upon patient request if the prescriptionis for a schedule II opioid drug., 160, cm, ... Start Date: 01/08/21 Status: Ordered Flovent HFA 110 mcg/inh inhalation aerosol 2 puffs, Inhalation, 2 times a day, RINSE MOUTH/THROAT AFTER USE, # 12 each, 3 Refills, [id number], 160, cm, 04/10/21 10:58:00 EDT, Height, 70.8, [...] 0 Refills, Maintenance, 08/11/21 13:47:00 EST, Film, [facility]/pharmacy #[id number], Partial fill upon patient request [...] 08/11/21 13:49:00 EST, Route to Pharmacy Electronically, [facility][id number], Partial fill upon patient request [...] Refills, Maintenance, 08/11/21 13:48:00 EST, Gel, [id number], Partial fill upon patient request if the [...]
--- OUTSIDE RECORDS SUMMARY | 2024-07-02 23:03 | XMS_ITS | Continuity of Care Document ---
Author Organization [facility] ter Address [address] [place] [address]- Care Team Providers Care Food And Beverage Operations Manager Name Role Phone Simone MCGOWAN, Jose Alejandro Joyce Primary Care Physician Encounter [facility] Date(s): 01/02/21 - 01/08/[address] [address] Discharge Disposition: A-D/C Home Attending Physician: Hieu Keller MD Admitting Physician: Julio Cesar Nye MD Referring Physician: Not on Staff, Referring [...] 12:43:59 EDT Start Date: 05/29/10 Status: Ordered dexamethasone 6 mg oral tablet 1 tablet = 6 mg, By Mouth, Daily, for 3 days, # 3 tablet, 0 Refills, Acute 01/11/21 15:08:00 EDT, 01/08/21 15:08:00 EDT, Tablet, [facility], Partial fill upon patient request if the prescription is for a schedule II opioid drug., 160, cm... Start Date: 01/08/21 Stop Date: 01/11/21 Status: Ordered diclofenac 1% topical gel 1 application, Topically, 4 times a day, PRN Pain , Mild, # 100 Gm, 0 Refills, Maintenance, 01/08/21 13:02:00 EDT, Gel, [facility], Partial fill upon patient request if the prescriptionis for a schedule II opioid drug., 160, cm, ... Start Date: 01/08/21 Status: Ordered gabapentin 300 mg oral capsule 1,500 mg, Capsule, By Mouth, 01/08/21 16:00:00 EDT Start Date: 01/08/21 Stop Date: 01/08/21 Status: Completed gabapentin 300 mg oral capsule 5 capsules, By Mouth, Daily at bedtime, Refills 0, Maintenance, 01/26/20 8:37:00 EDT Start Date: 01/26/20 Status: Ordered tamoxifen 20 mg oral tablet 1 tablet = 20 mg, By Mouth, Daily at bedtime, # 30 tablet, 0 Refills, Maintenance, 01/26/20 8:38:00EDT, Tablet Start Date: 01/26/20 Status: Ordered Tylenol 325 mg oral tablet 650 mg, Tablet, By Mouth, Every 8 hours, PRN for Pain , Moderate, Routine, 01/02/21 22:56:00 EDT Start Date: 01/02/21 Stop Date: 01/08/21 Status: Discontinued Tylenol 325 mg oral tablet 650 mg, [...] Follow-up examination after gynecological surgery(Confirmed) Active Results Orders for Microbiology Reports Name Date Urine Culture (URINE CULTURE) 01/02/21 Microbiology Reports TEST:Urine Culture STATUS:Auth (Verified) BODY SITE: SOURCE:URINE COLLECTED DATE/TIME:01/02/21 7:00 PM Urine Culture SPECIMEN DESCRIPTION : URINE CLEAN CATCH/MIDSTREAM SPECIAL REQUESTS : NONE CULTURE : NO GROWTH REPORT STATUS : FINAL 01/04/2021 Radiology Reports * Exam Date Time Procedure Performing Provider Status 01/02/21 4:32 PM Chest Portable Farrah Roland; Auth (V erified) Notes: (Chest Portable) Reason For Exam: Shortness of Breath RESULT: Chest Portable Chest Portable REASON: Shortness of Breath, COVID positive; Clinical Question(s): CHF COMPARISON: None. FINDINGS: LINES AND TUBES: None. LUNGS AND PLEURA: Left greater than right patchy airspace opacities with lower lung predominance. No pleural effusion. No pneumothorax. HEART, MEDIASTINUM AND PIERO: Heart is normal in size. Normal upper mediastinal and hilar contour. BONES AND SOFT TISSUES: No acute abnormality. IMPRESSION: Bilateral airspace opacities compatible with COVID-19 infection in the appropriate clinical setting, but other etiologies remain in the differential. I have personally reviewed the images and I agree with this report. WSN: [id number] Ordering Physician: Samuel Cool Dictated By: Roberto Quevedo DO Dictated Date/Time: 01/02/21 4:36 pm Reviewed By: Edmar Gregory MD Signed By: Edmar Gregory MD Signed Date/Time: 01/02/21 4:41 pm Transcribed By: DEMARCUS Transcribed Date/Time: 01/02/21 4:35 pm Vital Signs Most recent to oldest [Reference Range]: 1 2 3 Height 160 cm (01/07/21 3:46 PM) 160 cm (01/07/21 12:41 PM) 160 cm (01/07/21 12:30 PM) Weight 70.8 kg (01/07/21 12:41 PM) 70.8 kg (01/07/21 10:10 AM) 70.8 kg (01/02/21 10:31 PM) Oxygen Saturation [94-100 %] 98 % (01/08/21 9:53 AM) 100 % (01/08/21 9:49 AM) 98 % (01/08/21 6:00 AM) Pulse Rate [55-90 bpm] 83 bpm (01/08/21 9:49 AM) 87 bpm (01/08/21 6:00 AM) 101 bpm *H* (01/07/21 8:00 PM) Body Mass Index [18.5-24.99] 27.66 *H* (01/07/21 12:41 PM) 27.66 *H* (01/07/21 10:10 AM) 27.66 *H* (01/02/21 10:31 PM) Blood Pressure [90-138/55-84 mm Hg] 125/81mm Hg (01/08/21 9:49 AM) 129/79mm Hg (01/08/21 6:00 AM) 134/81mm Hg (01/07/21 8:00 PM) Respiratory Rate [16-30 br/min] 18 br/min (01/08/21 5:44 PM) 18 br/min (01/08/21 5:44 PM) 18 br/min (01/08/21 4:15 PM) Temperature [96.8-100.4 DegF] 98.8 DegF (01/08/21 9:49 AM) 98.2 DegF (01/08/21 6:00 AM) 98.4 DegF (01/07/21 8:00 PM) Liters per Minute 3 L/min (01/08/21 6:00 AM) 4 L/min (01/07/21 8:00 PM) 4 L/min (01/07/21 3:46 PM) Mode of Delivery (Oxygen) Room air (01/08/21 9:53 AM) Room air (01/08/21 9:49 AM) Nasal cannula (01/08/21 6:00 AM) Blood pressure sites Arm, left (01/08/21 9:49 AM) Arm, right (01/08/21 6:00 AM) Arm, right (01/07/21 8:00 PM) Temperature Route Oral (01/08/21 9:49 AM) Oral (01/08/21 6:00 AM) Oral (01/07/21 8:00 PM) Dry Weight 70.8 kg (01/07/21 12:41 PM) 70.8 kg (01/07/21 10:10 AM) 70.8 kg (01/02/21 10:31 PM) Social History Social History Type Response Smoking Status Never (less than 100 in lifetime) entered on: 01/23/20 Sex
== END 2024-07-02 23:01 | disposition home or self-care (01) ==
LOC: HO.ED 23:00
PROVIDERS: Emergency Provider Emergency Medicine; PCP Internal Medicine
DX: R60.0 Localized edema (principal); M79.671 Pain in right foot; R42 Dizziness and giddiness; Z79.899 Other long term (current) drug therapy
CPT/HCPCS: 36415; 80053; 85025; 85610; 93971; 99282; 99283

== ENCOUNTER 2024-07-12 10:41 | Outpatient (REF) | payer OTHER, SELFPAY ==
--- NOTE | ~2024-07-12 | XR_ITS ---
EXAMINATION: XR RIGHT ANKLE 2 VIEWS CLINICAL INFORMATION: No injury or fall, pain, and swelling for 5 weeks. COMPARISON: XR Right foot 07/12/2024 TECHNIQUE: AP, lateral, and mortise views of the right ankle. FINDINGS: Healing fracture third metatarsal shaft. No ankle fracture. Ankle alignment is anatomic. No erosions. Joint spaces are maintained. Soft tissues are normal. XR/XR ankle RT min 3V IMPRESSION: Healing third metatarsal shaft fracture. No ankle fracture. Electronically signed by: Geoffrey Mitchell MD 09/18/2024 10:19 AM [facility]
--- NOTE | ~2024-07-12 | XR_ITS ---
EXAMINATION: XR FOOT, RIGHT CLINICAL INFORMATION: Pain. Fracture COMPARISON: None available. TECHNIQUE: AP, lateral, and oblique views of the right foot. FINDINGS: There is a healing fracture in the midshaft of the third metatarsal with callus formation observed. The third metatarsal head is preserved. Joint spaces are preserved. No other fractures are seen. XR/XR foot RT min 3V IMPRESSION: Healing fracture third metatarsal shaft. Electronically signed by: Esdras Khoury MD 07/12/2024 04:47 PM EDT
== END 2024-07-12 10:42 | disposition home or self-care (01) ==
LOC: HO.XRAY 10:41
PROVIDERS: PCP Internal Medicine; Visit Provider Nurse Practitioner Family
DX: M25.571 Pain in right ankle and joints of right foot (principal)
CPT/HCPCS: 73610; 73630

== ENCOUNTER 2024-09-18 17:57 | Emergency (ER) | payer OTHER, SELFPAY ==
--- OUTSIDE RECORDS SUMMARY | 2024-09-18 17:59 | XMS_ITS ---
Author Name [facility] Organization Unknown History of Medication Use Medication Directions Dispensed Refills Start Date End Date [facility] phenazopyridine 100 mg tablet TAKE 1 TABLET BY MOUTH 3 TIMES A DAY FOR PAIN FOR 2 DAYS 04/06/2024 completed fluconazole 150 mg tablet TAKE 1 TABLET (ORAL) DAILY FOR 1 DAYS IF SYMPTOMS ARE STILL PRESENT ON DAY 4, REPEAT DOSE. 04/06/2024 completed nitrofurantoin monohydrate/macrocrys tals 100 mg capsule TAKE 1 CAPSULE BY MOUTH TWICE A DAY FOR 7 DAYS 04/06/2024 active fluticasone propionate 50 mcg/actuation nasal spray,suspension USE 1 SPRAY IN EACH NOSTRIL TWICE A DAY 03/09/2024 active tamoxifen 20 mg tablet TAKE 1 TABLET BY MOUTH EVERY DAY 03/09/2024 active amitriptyline 25 mg tablet TAKE 1 TABLET BY MOUTH EVERY DAY AT BEDTIME FOR 30 DAYS 03/09/2024 active alprazolam 0.5 mg tablet TAKE 1 TABLET BY MOUTH EVERY DAY AT BEDTIME 03/09/2024 active valacyclovir 500 mg tablet TAKE 1 TABLET BY MOUTH THREE TIMES A DAY FOR 10 DAYS 03/09/2024 active bisacodyl 5 mg tablet,delayed release TAKE 2 TABLETS BY MOUTH AT BEDTIME FOR 2 DAYS 03/09/2024 active permethrin 5 % topical cream MASSAGE INTO SKIN FROM HEAD TO SOLES OF FEET. WASH OFF AFTER 8-14 HOURS. REPEAT IN A WEEK. 03/09/2024 active Flovent HFA 110 mcg/actuation aerosol inhaler INHALE 2 PUFFS BY MOUTH INTO LUNGS 2 TIMES A DAY, RINSE MOUTH/THROAT AFTER USE 03/09/2024 active GaviLyte-G 236 gram-22.74 gram-6.74 gram-5.86 gram oral solution 240 ML ORALLY EVERY 10 MINUTES FOR 1 DAY UNTIL FECAL EFFLUENT IS CLEAR. MAX VOLUME 2000ML 03/09/2024 active levetiracetam 1,000 mg tablet TAKE 1 TABLET BY MOUTH TWICE A DAY FOR 90 DAYS 03/09/2024 active loratadine 10 mg tablet TAKE 1 TABLET BY MOUTH EVERY DAY 03/09/2024 active albuterol sulfate 2.5 mg/3 mL (0.083 %) solution for nebulization INHALE 1 VIAL EVERY 6 HOURS NEEDED FOR WHEEZING/ FOR SHORTNESS OF BREATH 03/09/2024 active ondansetron 4 mg disintegrating tablet TAKE 1 TABLET BY MOUTH EVERY 8 HOURS NEEDED FOR NAUSEA AND VOMITING 03/09/2024 active omeprazole 20 mg capsule,delayed release TAKE 1 CAPSULE BY MOUTH EVERY DAY FOR 4 WEEKS 03/09/2024 active ibuprofen 800 mg tablet TAKE 1 TABLET BY MOUTH 3 TIMES A DAY FOR 10 DAYS NEEDED FOR PAIN 03/09/2024 active Ventolin HFA 90 mcg/actuation aerosol inhaler INHALE 2 PUFFS BY MOUTH EVERY 6 HOURS NEEDED FOR WHEEZING/SHORTNE SS OF BREATH 03/09/2024 active cyclobenzaprine 10 mg tablet TAKE 1 TABLET BY MOUTH AT NIGHTIME NEEDED FOR SPASMS, DO NOT DRIVE WHILE TAKING 03/09/2024 active Allergies Allergen Reaction Severity Comment Documented Date Source Statu s GADOLINIUM-CONTAINING CONTRAST MEDIA ENS_AONECT Problems Problem Status Onset Date Problem Type Date of Resoluti on Source Accident while engaged in work-related activity active 2024-04-04 ProblemAct ENS _AONECT Low back pain active 2024-04-04 ProblemAct ENS_ [facility]ONECT
--- OUTSIDE RECORDS SUMMARY | 2024-09-18 17:59 | XMS_ITS | Data Portability ---
Author Organization [place] [facility] Sahil Black AONE [facility] Address [address] [place] [address] Care Team Providers [facility] Teacher Name Role Phone KENIA VALERO Synthetic Department Supervisor MERCED DE SOUZA Primary Care Provider MERCED DE SOUZA Referring Provider Assessment Encounter Date Assessment Date Assessment LastModified by Organization Details LastModified Time 03/07/2024 03/07/2024 HPI 48-year-old female injured worker presents to the office today for evaluation of SI joint pain. 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 She states the first few weeks following injury were particularly painful, leading to multiple visits at an urgent care facility. After about 2 weeks they advanced her back to light duty which she reports aggravated her symptoms and put her back to square one. Occupational health recently referred her to physical therapy which she reports has been tremendously helpful. She denies radicular symptoms. Denies weakness. Pain disturbs sleep. Denies saddle anesthesia. Denies bowel or bladder incontinence. Denies fevers, chills, or unexplained weight loss. Other treatments today include heat, Tylenol, Flexeril and NSAIDs. Flexeril was initially helpful however she does not like the side effects. Unfortunately she is unable to continue taking NSAIDs as recent colonoscopy screening revealed GI ulcers. She is currently out of work. EXAM Constitutional: appears well developed, in no acute distress. Respiratory: no respiratory distress Cardiovascular: Palpable pedal pulses bilaterally. Musculoskeletal: Normal gait Neck: Inspection of the cervical spine is unremarkable, no deformity noted. Back: Inspection of the thoracolumbar spine is unremarkable. No deformity noted. Nontender to palpation over midline thoracolumbar spine or paraspinal musculature. Mild tenderness to deep palpation over the right SI joint. Neurologic: Sensation grossly intact to light touch in bilateral lower extremities. 5/5 strength with hip flexion, knee flexion/extensio n, dorsi/plantar flexion, and EHL bilaterally. Non-tender, no palpable masses bilaterally. Negative straight leg raise bilaterally. Able to toe raise and heel walk bilaterally with increased discomfort. Normal tone in all 4 extremities. Negative Lott? s bilaterally. Negative Clonus bilaterally. Negative Babinski bilaterally. Skin: skin intact PLAN 48-year-old female injured worker with nearly 2-month of back pain following work related incident. Cannot exclude possibility of disc herniation. Radiographs are reassuring. She is seeing good improvement in her symptoms since starting physical therapy. She will continue with this. She remains temporarily totally disabled. Updated work note provided today. Will follow-up with her in approximately 1 month, likely advance her back to light duty at that time. Patient was seen and evaluated by Marylou Frazier PA-C in indirect conjunction with Documenting Provider: Armand Pagan MD He/She agrees with history, physical examination, tests/diagnostic imaging, and treatment plan. 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 She has noted some improvement with physical therapy and is interested in returning to work. She had mostly right-sided pain which is dramatically reduced. Has increased her activity level and fitness she noted some left-sided pain but this is back under control. Her examination is benign. She ambulates well. She has no tension sign or lower extremity weakness. We give her another prescription for physical therapy. This will include additional work readiness. She is released to light duty. Arrangements were made for follow-up. Light duty work starting April 10, 2024: No lifting greater than 20 pounds. No repetitive bending lifting or twisting. 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 She is in good spirits and reports she is seeing continued improvement with physical therapy. Since we saw her last she does report to 3 flareups of pain but these are resolving well. She denies leg pain. She states the numbness in her right foot has resolved. She has gradually been increasing her workload and is up to a full caseload but is avoiding lower extremity wound so as to not bend or lift. EXAM Alert and oriented. Mood/affect appropriate. In no acute distress. She ambulates with a nonantalgic gait. She has no weakness or tension sign on exam today. Neurovascular exam intact PLAN She is being continued improvement. She will continue with physical therapy and light duty until her next visit in 1 month, would likely release her to full duty at that time. Patient was seen and evaluated by Marylou Frazier PA-C in indirect conjunction with Documenting Provider: Armand Pagan MD He/She agrees with history, physical examination, tests/diagnostic imaging, and treatment plan. 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 She is in excellent spirits and feels ready to return to full duty. She reports she has no pain nor radicular symptoms. She continues to work with physical therapy on strengthening. EXAM Alert and oriented. Mood/affect appropriate. In no acute distress. She ambulates with a nonantalgic gait. She has no weakness or tension sign on exam today. Neurovascular exam intact PLAN She has made excellent improvement with physical therapy. Her symptoms have essentially resolved at this point. Updated work status provided to return to full duty. She will follow-up with us as needed. Patient was seen and evaluated by Marylou Frazier PA-C in indirect conjunction with Documenting Provider: Armand Pagan MD He/She agrees with history, physical examination, tests/diagnostic imaging, and treatment plan. Not available 05/30/2024 09:17:48 Plan of Treatment Reminders Order Date Submit Date Provider Last Modified By Organization Details Last Modified Time Details Appointments None recorded. Lab None recorded. Referral orthopedic physical therapist referral - Additional Comments: tive rehab home exercise program continue to work readiness. 2023 024 GATO Not available 07:20:59 Procedures None recorded. Surgeries None recorded. Imaging XR, lumbosacral spine, 2 or 3 view 2023 024 [email or web address] 2 [facility], [address], [address], [place], [address], 12:03:19 Medication Orders None recorded. Patient TargetsNo targets recorded. Patient Instructions Encounter Date Encounter Id Patient Instructions Last Modified By Organization Details Last Modified Time 03/07/2024 [id number] views of lumba r spine were obtained today 03/07/2024 in the [facility] office. Normal spinal curvature. Well-maintained vertebral body height and disc space. Mild to moderate loss at L5-S1. No fracture or spondylolisthesis . Not available 03/07/2024 12:11:13 04/04/2024 [id number] work status report* - Light duty work starting April 10, 2024: No lifting greater than 20 pounds. No repetitive bending lifting or twisting. [email or web address] Not available 04/11/2024 08:34:16 05/02/2024 [id number] work status report* - Return to work on 05/02/24 with the following light duty restrictions: No lifting greater than 20 pounds. No repetitive bending lifting or twisting. [email or web address] Not available 05/09/2024 07:37:27 05/30/2024 [id number] work status report* - Return to full duty work on 05/30/24 [email or web address] Not available 06/06/2024 08:12:15 Reason for Referral Additional Comments:Active r ehab home exercise program continue to work readiness. Referring Physician: Armand Pagan, Orthopedic Surgery, Encounter Date: 04/04/2024 Problems Name Problem SNOMED Code Status Onset Date Resolution Date Notes Provider Name and Address Organization Details Recorded Time Low back pain 779729990 Active Armand Pagan MD [address], [place], [address] , [place] [facility] 13:35:01 Accident while engaged in work-relat ed activity Active 024 Armand Pagan MD [address], [place], [address] , [place], [facility] 4 13:37:00 Problem Notes None recorded. Procedures Surgical History Date Name Laterality Status Provider Name and Address Organization Details Recorded Time loop electrosurgical excision procedure completed Judit Doshi [facility] 03/07/2024 12:05:15 endometrial resection completed Judit Doshi [facility] 03/07/2024 12:07:28 Imaging Results None recorded. Procedure Notes None recorded. Medical Equipment None Reported. Allergies Allergen ID Allergen Name Allergen Category Reaction Reaction Severity Criticality Documentation Date Start Date Code Code System Note Provider Name and Address Organization Details Recorded Time 40722 Product containin g gadoliniu m and/or gadoliniu m compound (product) medicatio n Not available Not available Not available 03/07/2024 47113 3008 SNOMED Judit raymond, [facility] 4 11:58:57 [id number] cat dander environme nt Not available Not available Not available [facility]07[facility] Medications Name Sig Start Date Stop Date Status Note LastModified by Organization Details LastModified Time cyclobenzap rine 10 mg tablet TAKE 1 TABLET BY MOUTH AT NIGHTIME NEEDED FOR SPASMS, DO NOT DRIVE WHILE TAKING 04/04 completed Not Available Not Available Not Available albuterol sulfate 2.5 mg/3 mL (0.083 %) solution for nebulizatio n INHALE 1 VIAL EVERY 6 HOURS NEEDED FOR WHEEZING/ FOR SHORTNESS OF BREATH active Not Available Not Available No t Available ibuprofen 800 mg tablet TAKE 1 TABLET BY MOUTH 3 TIMES A DAY FOR 10 DAYS NEEDED FOR PAIN 04/04 completed Not Available Not Available Not Available fluconazole 150 mg tablet TAKE 1 TABLET (ORAL) DAILY FOR 1 DAYS IF SYMPTOMS ARE STILL PRESENT ON DAY 4, REPEAT DOSE. 04/04 completed Not Available Not Available Not Available permethrin 5 % topical cream MASSAGE INTO SKIN FROM HEAD TO SOLES OF FEET. WASH OFF AFTER 8-14 HOURS. REPEAT IN A WEEK. 04/04 completed Not Available Not Available Not Available valacyclovi r 500 mg tablet TAKE 1 TABLET BY MOUTH THREE TIMES A DAY FOR 10 DAYS 04/04 completed Not Available Not Available Not Available alprazolam 0.5 mg tablet TAKE 1 TABLET BY MOUTH EVERY DAY AT BEDTIME active Not Available Not Available No t Available amitriptyli ne 25 mg tablet PRN active Not Available Not Available Not Available phenazopyri dine 100 mg tablet TAKE 1 TABLET BY MOUTH 3 TIMES A DAY FOR PAIN FOR 2 DAYS 04/04 completed Not Available Not Available Not Available omeprazole 20 mg capsule,del ayed release TAKE 1 CAPSULE BY MOUTH EVERY DAY FOR 4 WEEKS 04/04 completed Not Available Not Available Not Available bisacodyl 5 mg tablet,jocelynn yed release TAKE 2 TABLETS BY MOUTH AT BEDTIME FOR 2 DAYS 04/04 completed Not Available Not Available Not Available ondansetron 4 mg disintegrat ing tablet PRN active Not Available Not Available N ot Available fluticasone propionate 50 mcg/actuati on nasal spray,suspe nsion PRN 2023 active Not Available Not Available Not Avai lable tamoxifen 20 mg tablet TAKE 1 TABLET BY MOUTH EVERY DAY 04/04 completed Not Available Not Available Not Available loratadine 10 mg tablet TAKE 1 TABLET BY MOUTH EVERY DAY active Not Available Not Available No t Available Ventolin HFA 90 mcg/actuati on aerosol inhaler PRN active Not Available Not Available Not Available nitrofurant oin monohydrate /macrocryst als 100 mg capsule TAKE 1 CAPSULE BY MOUTH TWICE A DAY FOR 7 DAYS 05/02 completed Not Available Not Available Not Available Flovent HFA 110 mcg/actuati on aerosol inhaler PRN 2023 active Not Available Not Available Not Avai lable levetiracet am 1,000 mg tablet TAKE 1 TABLET BY MOUTH TWICE A DAY FOR 90 DAYS active Not Available Not Available No t Available GaviLyte-G 236 gram-22.74 gram-6.74 gram-5.86 gram oral solution 240 ML ORALLY EVERY 10 MINUTES FOR 1 DAY UNTIL FECAL EFFLUENT IS CLEAR. MAX VOLUME 2000ML 05/02 completed Not Available Not Available Not Available Vitals Date Recorded Body height Body mass index (BMI) Body weight Provider Name and Address Organization Details Last Updated DateTime 03/07/2024 161.29 cm 30.2 kg/m2 11727.48 g Asiya Cosme [facility] 03/07/2024 11:16:29 Date Recorded Body height Body mass index (BMI) Body weight Provider Name and Address Organization Details Last Updated DateTime 04/04/2024 161.29 cm 29.6 kg/m2 96087.7 g Judit Tico [facility] 04/04/2024 13:28:23 Date Recorded Body height Body mass index (BMI) Body weight Provider Name and Address Organization Details Last Updated DateTime 05/02/2024 161.29 cm 29.6 kg/m2 73018.7 g Judit Tico [facility] 05/02/2024 09:05:06 Date Recorded Body height Body mass index (BMI) Body weight Provider Name and Address Organization Details Last Updated DateTime 05/30/2024 161.29 cm 29.6 kg/m2 66518.7 g Judit Tico [facility] 05/30/2024 09:05:06 Social History Question Answer Notes LastModified by Organizat ion Details LastModified Time Tobacco Smoking Status Never Smoker Judit Tico [facility]mond, [facility] 03/07/2024 11:59:13 What Is Your Level Of Alcohol Consumption? Occasional [email or web address] Information not available 03/07/2024 How Many Times Per Week Do You Consume Alcohol? 1-2 Times Per Week [email or web address] Information not available 03/07/2024 Do You Use Any Illicit Or Recreational Drugs? No [email or web address] Information not available 03/07/2024 Do You Or Have You Ever Used Any Other Forms Of Tobacco Or Nicotine? No [email or web address] Information not available 03/07/2024 Sex: Unknown Functional Status None recorded. Mental Status None recorded. Family History Relationship Description Onset Age of this Age Resolved Age Notes LastModified by Organization Details LastModified Time Mother Family history of malignant neoplasm [email or web address] Not available 11:59:35 Father Family history of malignant neoplasm [email or web address] Not available 11:59:35 Sister Family history of malignant neoplasm [email or web address] Not available 11:59:35 Medical History Condition Response Coronary Artery Disease N Gout N Hyperthyroidism N MRSA N Blood Transfusion N Emphysema N Depression N COPD N Hypothyroidism N Pacemaker N Vascular Disease N Gastrointestinal Disease N Anxiety Disorder N Autoimmune disease N Arthritis N Cancer N Stroke N High Cholesterol N Neurologic Disorder N Liver Disease N Organ Transplant N Rheumatoid Arthritis N Arrhythmia N Fibromyalgia N Kidney Disease N Allergies/Hayfever N Adverse Reaction to Anesthesia N Thyroid Problems N Anemia N Brain Injury N Heart Attack ([place]) N Osteopenia N Diabetes N Bleeding Disorder N Seizures/Epilepsy Y AIDS/HIV N Congestive Heart Failure (CHF) N Asthma N Amputation N Reflux/GERD N Sleep Apnea N Hepatitis N Aneurysm N Heart Disease N Pulmonary Embolism N Hypertension N Osteoporosis N Gynecological HistoryNo gynecological history recorded. Obstetrics History GPAL:G 0 P 0 0 0 0 Past Encounters Encounter ID Performer Location Encounter Start Date Encounter Closed Date Diagnosis/Indication Diagnosis SNOMED-CT Code Diagnosis ICD10 Code [id number] MD ARCHANA Escobedo [address] [place] [address] 03/07/2024 10:52:34 03/07/2024 11:49:40 Low back pain 122739789 M54.50 [id number] MD ARCHANA Escobedo [address] [place] [address] 04/04/2024 13:22:04 04/04/2024 13:42:38 Low back pain 250636009 M54.50 Accident w nadia engaged in work-related activity 70895634 Y99.0 [id number] MD ARCHANA Escobedo [address] [place] [address] 05/02/2024 09:03:22 05/02/2024 09:17:26 Low back pain 196640109 M54.50 Accident w hile engaged in work-related activity 45798703 Y99.0 [id number] MD ARCHANA Escobedo [address] [place] [address] 05/30/2024 08:58:51 05/30/2024 09:17:42 Low back pain 505443264 M54.50 Accident w nadia engaged in work-related activity 87906584 Y99.0 Health Concerns Section Related Observation LastModified by Organization Detai ls LastModified Time None Recorded Concern Status LastModified by Organization Details LastModified Time None Recorded Advance Directives Directive None Recorded Payers Encounter Date Sequence Insurance Name Policy Number Policy Welsh Covered Member ID Welsh Member ID Guarantor Name 03/07/2024 [employer] Rober Bessie Guerrier 04/04/2024 [employer] Rober Bessie Guerrier 05/02/2024 [employer] Rober Bessie Guerrier 05/30/2024 [employer] Rober Bessie Guerrier Notes Date Note Type Note Provider Name and Address Organization Details Recorded Time 05/02/2024 text/html PRIOR DMK:48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 She has noted some improvement with physical therapy and is interested in returning to work. She had mostly right-sided pain which is dramatically reduced. Has increased her activity level and fitness she noted some left-sided pain but this is back under control. Her examination is benign. She ambulates well. She has no tension sign or lower extremity weakness. We give her another prescription for physical therapy. This will include additional work readiness. She is released to light duty. Arrangements were made for follow-up. Light duty work starting April 10, 2024: No lifting greater than 20 pounds. No repetitive bending lifting or twisting. MARYLOU FRAZIER PA-C [address], [place], [address], [place] [facility] 05/02/2024 09:22:23 OBGyn Episode No OBEpisode recorded.
[2024-09-18 18:03] VITALS: BP 159/102; PULSE 76; RESP 16; TEMP 36.4; O2SAT 98; BMI 31.9
[2024-09-18] MEDS: Hepatitis B Imm Globulin 5 ML VIAL 4.9 ML IM (20:53)
--- NOTE | 2024-09-18 21:23 | ED.GENADULT ---
HPI - General Adult General Chief complaint: General Medical Stated complaint: needle stick/wc Time Seen by Provider: 09/18/24 20:29 Source: patient Limitations: no limitations History of Present Illness ED Provider: Holly Valdovinos PA-C HPI narrative: 48-year-old female presents after work-related needle stick. Patient was seen by Occupational Health, associated with her facility; she works for [employer]. She received screening labs, post exposure prophylaxis. Patient does not react to the hep B vaccine, she was instructed to come to the emergency department to receive hepatitis-B immunoglobulin. Related Data Home Medications ?Medication ?Instructions ?Recorded ?Confirmed alprazolam 0.5 mg tablet 0.5 mg PO DAILY night terrors 01/31/21 06/14/24 albuterol sulfate 90 mcg/actuation 2 puff inhalation Q6H PRN Wheezing 02/03/21 06/14/24 aerosol inhaler (Ventolin HFA) levonorgestrel 21 mcg/24 hr (up to 52 device intrauterine DIRECTED 03/04/22 06/14/24 8 years) 52 mg intrauterine device (Mirena) loratadine 10 mg tablet (Allergy 10 mg PO DAILY PRN Allergy Symptoms 04/15/22 06/14/24 Relief (loratadine)) levetiracetam 1,000 mg tablet 1,000 mg PO BID 12/14/22 06/14/24 sumatriptan succinate 50 mg tablet 50 mg PO DAILY PRN Headache 12/14/22 06/14/24 (Imitrex) amitriptyline 25 mg tablet 25 mg PO BEDTIME 03/02/24 06/14/24 fluticasone propionate 110 2 puff inhalation BID 03/02/24 06/14/24 mcg/actuation HFA aerosol inhaler fluticasone propionate 50 1 spray intranasal BID 03/02/24 06/14/24 mcg/actuation nasal spray,suspension Previous Rx's ?Medication ?Instructions ?Recorded ondansetron 4 mg disintegrating 4 mg PO Q8H PRN nausea and 01/13/24 tablet vomiting #20 tabs omeprazole 20 mg capsule,delayed 20 mg PO DAILY 4 weeks #28 caps 02/14/24 release oxybutynin chloride 10 mg 10 mg PO DAILY #30 tabs 06/28/24 tablet,extended release 24 hr Allergies Allergy/AdvReac Type Severity Reaction Status Date / Time cat dander Allergy Severe Anaphylaxis Verified 09/18/24 18:03 Gadolinium-Containing Allergy Severe Anaphylaxis Verified 09/18/24 18:03 Contrast Medi [GADOLINIUM-CONTAINING CONTRAST] acetaminophen [Percocet] Allergy Intermediate Itching Verified 09/18/24 18:03 fluoxetine [From PROZAC] Allergy Intermediate PALPITATION Verified 09/18/24 18:03 S oxycodone [Percocet] Allergy Intermediate Itching Verified 09/18/24 18:03 paroxetine [Paxil] Allergy Intermediate Palpitation Verified 09/18/24 18:03 s divalproex sodium AdvReac Intermediate Tremor Verified 09/18/24 18:03 [From Depakote] topiramate [From Topamax] AdvReac Intermediate Clouded Verified 09/18/24 18:03 mentation diphenhydramine AdvReac Unknown Lower Verified 09/18/24 18:03 [From Benadryl] seizure threshold Review of Systems Review of Systems: Yes all other systems are reviewed and are negative Constitutional: Constitutional: Denies fatigue and Denies fever(s) Cardiovascular: Cardiovascular: Denies chest pain and Denies dyspnea Respiratory: Respiratory: Denies dyspnea Gastrointestinal: Gastrointestinal: Denies abdominal pain Endocrine: Endocrine: Denies fatigue PMFSH Past Medical History Attestation statement: The following information was validated with the patient. 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 Endometriosis Surgical History Hx of colonoscopy History of esophagogastroduodenoscopy (EGD) Hx of cystoscopy History of left oophorectomy (~2019) History of elective breast augmentation (~2019) History of loop electrical excision procedure (LEEP) Family History Family History Mother History of gastric cancer Breast cancer Maternal Grandmother Ovarian cancer Uterine cancer Cervical cancer Paternal Grandmother Breast cancer Maternal Uncle Pancreatic cancer Maternal Aunt Pancreatic cancer Paternal Uncle Pancreatic cancer Social History Social History Household Members: Family Housing: House Are you a primary caregiver services home to a significant other at home: Yes (dad) Do you presently have visiting nurse or other home services: No Alcohol intake: current Alcohol intake frequency: holidays/special occasions only Patient Tobacco Use Status: Never used Tobacco Smoked in Last 30 Days: No Second Hand Smoke Exposure: No Use of substances other than those prescribed or required for medical reasons: No Advance Directives: No Advance Directives Information Provided: No Do you have a plan to hurt others: No Plan Patient : No service: No Current occupational status: other Gender identity: Female Physical Exam ED Vital Signs: Vital Signs - 24 hr 09/18/24 18:03 Temperature 97.6 F Pulse Rate 76 Respiratory Rate 16 Blood Pressure 159/102 H Pulse Oximetry 98 Oxygen Delivery Method Room Air BMI result Body Mass Index 31.9 Const Other: Alert, well in appearance Orientation/consciousness: patient oriented x3 Resp Other: Nonlabored respirations Cardio Other: Normal peripheral perfusion Skin Other: Warm dry no rash Neuro General: patient oriented x3, no focal motor deficits and CN's II-XI intact bilaterally Psych Other: Cooperative Medications Administered Discontinued Medications Generic Name Dose Route Start Last Admin Trade Name Freq PRN Reason Stop Dose Admin Hepatitis B Immune Globulin 4.9 ml 09/18/24 20:37 09/18/24 20:53 Hepatitis B Imm Globulin 5 Ml Vial IM 09/18/24 20:38 4.9 ml ONCE ONE Administration Medical Decision Making Medical Decision Making MDM Narrative: 48-year-old female presents after work-related needle stick. Patient was seen by Occupational Health, associated with her facility; she works for [employer]. She received screening labs, post exposure prophylaxis. Patient does not react to the hep B vaccine, she was instructed to come to the emergency department to receive hepatitis-B immunoglobulin. Problem: No immune response to hep B vaccine History: Per patient There was no differential to consider Plan: We will order the hep B immunoglobulin Discharge Plan Discharge Clinical Impression: Accidental hypodermic needlestick injury Patient Disposition: Home, Self-Care Additional Instructions: You received the weight based dose of hepatitis-B immunoglobulin. Follow up with your primary care provider as needed. Prescriptions: No Action omeprazole 20 mg capsule,delayed release(DR/EC) 20 mg PO DAILY 28 Days Qty: 28 0RF oxybutynin chloride 10 mg tablet extended release 24hr 10 mg PO DAILY Qty: 30 1RF ondansetron 4 mg tablet,disintegrating 4 mg PO Q8H PRN (Reason: nausea and vomiting) Qty: 20 0RF Mirena 20 mcg/24 hours (7 yrs) 52 mg intrauterine device 52 device intrauterine DIRECTED albuterol sulfate [Ventolin HFA] 90 mcg/actuation HFA aerosol inhaler 2 puff inhalation Q6H PRN (Reason: Wheezing) alprazolam 0.5 mg tablet 0.5 mg PO DAILY loratadine [Allergy Relief (loratadine)] 10 mg tablet 10 mg PO DAILY PRN (Reason: Allergy Symptoms) levetiracetam 1,000 mg tablet 1,000 mg PO BID sumatriptan succinate [Imitrex] 50 mg tablet 50 mg PO DAILY PRN (Reason: Headache) fluticasone propionate 50 mcg/actuation spray,suspension 1 spray intranasal BID fluticasone propionate 110 mcg/actuation HFA aerosol inhaler 2 puff inhalation BID amitriptyline 25 mg tablet 25 mg PO BEDTIME Print Language: Rwandan
[2024-09-18 21:34] VITALS: BP 142/103; PULSE 75; RESP 14; TEMP 36.3; O2SAT 99
[2024-09-18 21:37] VITALS: BP 142/103; PULSE 75; RESP 14; TEMP 36.3; O2SAT 99
== END 2024-09-18 21:37 | disposition home or self-care (01) ==
PROVIDERS: Emergency Provider Internal Medicine; PCP Internal Medicine
DX: S41.132A Puncture wound without foreign body of left upper arm, initial encounter (principal); S40.812A Abrasion of left upper arm, initial encounter; W26.9XXA Contact with unspecified sharp object(s), initial encounter; Y93.89 Activity, other specified; Y92.89 Other specified places as the place of occurrence of the external cause; Y99.0 Civilian activity done for income or pay; Z20.5 Contact with and (suspected) exposure to viral hepatitis; Z79.899 Other long term (current) drug therapy
CPT/HCPCS: 90371; 96372; 99284

== ENCOUNTER 2024-10-18 12:28 | Emergency (ER) | payer OTHER, SELFPAY ==
[2024-10-18 13:20] VITALS: BP 158/90; PULSE 92; RESP 18; TEMP 36.6; O2SAT 100; BMI 31.9
--- NOTE | 2024-10-18 13:29 | ED.GENADULT ---
HPI - General Adult General Chief complaint: Recheck/Abnormal Lab/Rx Stated complaint: Back Pain Time Seen by Provider: 10/18/24 13:27 Source: patient and RN notes reviewed Mode of arrival: ambulatory Limitations: no limitations History of Present Illness ED Provider: Yelena BLUM narrative: 48-year-old female presents for evaluation of hepatitis-B vaccine series. Patient had a needlestick about a month ago. She was seen in the ER and got her 1st dose of the hepatitis-B immune globulin She is here for her 2nd dose. She follows up at [facility] tomorrow but was instructed to get her 2nd dose before going She has no complaints or concerns, her 1st dose was without complication Related Data Home Medications ?Medication ?Instructions ?Recorded ?Confirmed alprazolam 0.5 mg tablet 0.5 mg PO DAILY night terrors 01/31/21 06/14/24 albuterol sulfate 90 mcg/actuation 2 puff inhalation Q6H PRN Wheezing 02/03/21 06/14/24 aerosol inhaler (Ventolin HFA) levonorgestrel 21 mcg/24 hr (up to 52 device intrauterine DIRECTED 03/04/22 06/14/24 8 years) 52 mg intrauterine device (Mirena) loratadine 10 mg tablet (Allergy 10 mg PO DAILY PRN Allergy Symptoms 04/15/22 06/14/24 Relief (loratadine)) levetiracetam 1,000 mg tablet 1,000 mg PO BID 12/14/22 06/14/24 sumatriptan succinate 50 mg tablet 50 mg PO DAILY PRN Headache 12/14/22 06/14/24 (Imitrex) amitriptyline 25 mg tablet 25 mg PO BEDTIME 03/02/24 06/14/24 fluticasone propionate 110 2 puff inhalation BID 03/02/24 06/14/24 mcg/actuation HFA aerosol inhaler fluticasone propionate 50 1 spray intranasal BID 03/02/24 06/14/24 mcg/actuation nasal spray,suspension Previous Rx's ?Medication ?Instructions ?Recorded ondansetron 4 mg disintegrating 4 mg PO Q8H PRN nausea and 01/13/24 tablet vomiting #20 tabs omeprazole 20 mg capsule,delayed 20 mg PO DAILY 4 weeks #28 caps 02/14/24 release oxybutynin chloride 10 mg 10 mg PO DAILY #30 tabs 06/28/24 tablet,extended release 24 hr Allergies Allergy/AdvReac Type Severity Reaction Status Date / Time cat dander Allergy Severe Anaphylaxis Verified 10/18/24 13:22 Gadolinium-Containing Allergy Severe Anaphylaxis Verified 10/18/24 13:22 Contrast Medi [GADOLINIUM-CONTAINING CONTRAST] acetaminophen [Percocet] Allergy Intermediate Itching Verified 10/18/24 13:22 fluoxetine [From PROZAC] Allergy Intermediate PALPITATION Verified 10/18/24 13:22 S oxycodone [Percocet] Allergy Intermediate Itching Verified 10/18/24 13:22 paroxetine [Paxil] Allergy Intermediate Palpitation Verified 10/18/24 13:22 s divalproex sodium AdvReac Intermediate Tremor Verified 10/18/24 13:22 [From Depakote] topiramate [From Topamax] AdvReac Intermediate Clouded Verified 10/18/24 13:22 mentation diphenhydramine AdvReac Unknown Lower Verified 10/18/24 13:22 [From Benadryl] seizure threshold [facility] Past Medical History 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 Endometriosis Surgical History Hx of colonoscopy History of esophagogastroduodenoscopy (EGD) Hx of cystoscopy History of left oophorectomy (~2019) History of elective breast augmentation (~2019) History of loop electrical excision procedure (LEEP) Family History Family History Mother History of gastric cancer Breast cancer Maternal Grandmother Ovarian cancer Uterine cancer Cervical cancer Paternal Grandmother Breast cancer Maternal Uncle Pancreatic cancer Maternal Aunt Pancreatic cancer Paternal Uncle Pancreatic cancer Social History Social History Household Members: Family Housing: House Are you a primary career counselor to a significant other at home: Yes (dad) Do you presently have visiting nurse or other home services: No Alcohol intake: current Alcohol intake frequency: holidays/special occasions only Patient Tobacco Use Status: Never used Tobacco Second Hand Smoke Exposure: No Do you have a plan to hurt others: No Plan service: No Current occupational status: other Gender identity: Female Physical Exam ED Vital Signs: Vital Signs - 24 hr 10/18/24 13:20 Temperature 97.9 F Pulse Rate 92 Respiratory Rate 18 Blood Pressure 158/90 H Pulse Oximetry 100 Oxygen Delivery Method Room Air BMI result Body Mass Index 31.9 Const General: healthy appearing, comfortable, no acute distress, alert and awake Nutritional Appearance: well nourished Orientation/consciousness: patient oriented x3 HENMT Head: Yes normocephalic and Yes atraumatic Eyes Eyelids: Yes eyelids normal Conjunctivae: conjunctivae normal Sclerae: sclerae normal Corneas: corneas normal Pupils: Equal, round and reactive pupils present EOM: EOMs intact bilaterally Neck Neck: Yes full ROM Resp Effort & Inspection: normal respiratory effort, able to speak in complete sentences and not labored Skin General skin exam: elasticity normal Neuro General: patient oriented x3 Cranial nerves: Yes Equal, round and reactive pupils present and Yes Bilaterally intact EOM present Cognition (Neuro): normal cognition Extrem Other: Moving all extremities well without any obvious deformities Medical Decision Making Medical Decision Making MDM Narrative: 48-year-old female presents for evaluation of hepatitis B vaccination. She had a needlestick injury about a month ago and did not react when testing for vaccination status. She was in the process of restarting the hepatitis-B vaccine series. Her 1st doses month ago without complication, her 2nd dose we will be administered and she will be ready for discharge Differential Diagnosis Differential Diagnoses: The differential diagnosis associated with the presentation includes Hepatitis-B Hepatitis-C Needle stick injury Discharge Plan Discharge Clinical Impression: Has received second dose of hepatitis B vaccine Patient Disposition: Home, Self-Care Instructions: Hepatitis B Vaccine (By injection) Additional Instructions: You were given a 2nd dose of hepatitis-B series. Follow-up tomorrow as planned Prescriptions: No Action omeprazole 20 mg capsule,delayed release(DR/EC) 20 mg PO DAILY 28 Days Qty: 28 0RF oxybutynin chloride 10 mg tablet extended release 24hr 10 mg PO DAILY Qty: 30 1RF ondansetron 4 mg tablet,disintegrating 4 mg PO Q8H PRN (Reason: nausea and vomiting) Qty: 20 0RF Mirena 20 mcg/24 hours (7 yrs) 52 mg intrauterine device 52 device intrauterine DIRECTED albuterol sulfate [Ventolin HFA] 90 mcg/actuation HFA aerosol inhaler 2 puff inhalation Q6H PRN (Reason: Wheezing) alprazolam 0.5 mg tablet 0.5 mg PO DAILY loratadine [Allergy Relief (loratadine)] 10 mg tablet 10 mg PO DAILY PRN (Reason: Allergy Symptoms) levetiracetam 1,000 mg tablet 1,000 mg PO BID sumatriptan succinate [Imitrex] 50 mg tablet 50 mg PO DAILY PRN (Reason: Headache) fluticasone propionate 50 mcg/actuation spray,suspension 1 spray intranasal BID fluticasone propionate 110 mcg/actuation HFA aerosol inhaler 2 puff inhalation BID amitriptyline 25 mg tablet 25 mg PO BEDTIME Print Language: Kazakh
[2024-10-18] MEDS: Hepatitis B Imm Globulin 5 ML VIAL 4.9 ML IM (14:57)
[2024-10-18 15:10] VITALS: BP 158/90; PULSE 92; RESP 18; TEMP 36.6; O2SAT 100
--- OUTSIDE RECORDS SUMMARY | 2024-10-18 16:06 | XMS_ITS | Data Portability ---
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 Patient TargetsNo targets recorded. Patient Instructions Encounter Date Encounter Id Patient Instructions Last Modified By Organization Details Last Modified Time 03/07/2024 [id number] views of lumba r spine were obtained today 03/07/2024 in the [place] office. Normal spinal curvature. Well-maintained vertebral body height and disc space. Mild to moderate loss at L5-S1. No fracture or spondylolisthesis . Not available 03/07/2024 12:11:13 04/04/2024 [id number] work status report* - Light duty work starting April 10, 2024: No lifting greater than 20 pounds. No repetitive bending lifting or twisting. [email or web address] Not available 04/11/2024 08:34:16 05/02/2024 [id number] work status report* - Return to work on 05/02/24 with the following light duty restrictions: No lifting greater than 20 pounds. No repetitive bending lifting or twisting. [email or web address] Not available 05/09/2024 07:37:27 05/30/2024 [id number] work status report* - Return to full duty work on 05/30/24 [email or web address] Not available 06/06/2024 08:12:15 Reason for Referral Additional Comments:Active r ehab home exercise program continue to work readiness. Referring Physician: Armand Pagan, Orthopedic Surgery, Encounter Date: 04/04/2024 Problems Name Problem SNOMED Code Status Onset Date Resolution Date Notes Provider Name and Address Organization Details Recorded Time Low back pain 434468418 Active Armand Pagan MD [address], [place], [address] , [place] [facility] 4 13:35:01 Accident while engaged in work-relat ed activity Active 024 Armand Pagan MD [address], [place], [address] , [facility], [facility] 4 13:37:00 Problem Notes None recorded. Procedures Surgical History Date Name Laterality Status Provider Name and Address Organization Details Recorded Time loop electrosurgical excision procedure completed Judit Doshi [facility], [facility] 03/07/2024 12:05:15 endometrial resection completed Judit Doshi [facility] 03/07/2024 12:07:28 Imaging Results None recorded. Procedure Notes None recorded. Medical Equipment None Reported. Allergies Allergen ID Allergen Name Allergen Category Reaction Reaction Severity Criticality Documentation Date Start Date Code Code System Note Provider Name and Address Organization Details Recorded Time 20675 Product containin g gadoliniu m and/or gadoliniu m compound (product) medicatio n Not available Not available Not available 03/07/2024 73844 3008 SNOMED Judit raymond, [facility], [facility] 4 11:58:57 13292 cat dander environme nt Not available Not available Not available 03[facility]07[facility]20[facility] 11:59[facility]02 Medications Name Sig [...] Updated DateTime 03/07/2024 161.29 cm 30.2 kg/m2 07295.48 g Asiya Cosme [facility] 03/07/2024 11:16:29 Date Recorded Body height Body mass index (BMI) Body weight Provider Name and Address Organization Details Last Updated DateTime 04/04/2024 161.29 cm 29.6 kg/m2 04455.7 g Judit Tico [facility] 04/04/2024 13:28:23 Date Recorded Body height Body mass index (BMI) Body weight Provider Name and Address Organization Details Last Updated DateTime 05/02/2024 161.29 cm 29.6 kg/m2 71659.7 g Judit Tico [facility] 05/02/2024 09:05:06 Date Recorded Body height Body mass index (BMI) Body weight Provider Name and Address Organization Details Last Updated DateTime 05/30/2024 161.29 cm 29.6 kg/m2 81055.7 g Judit Tico [facility] 05/30/2024 09:05:06 Social History Question Answer Notes LastModified by Organizat ion Details LastModified Time Tobacco Smoking Status Never Smoker Judit Tico raymond, [facility] 03/07/2024 11:59:13 What Is Your Level Of Alcohol Consumption? Occasional [email or web address] Information not available 03/07/2024 How Many Times Per Week Do You Consume Alcohol? 1-2 Times Per Week [email or web address] Information not available 03/07/2024 Do You Use Any Illicit Or Recreational Drugs? No [email or web address] Information not available 03/07/2024 Do You Or Have You Ever Used Any Other Forms Of Tobacco Or Nicotine? No [email or web address] Information not available 03/07/2024 Sex: Unknown Functional Status None recorded. Mental Status None recorded. Family History Relationship Description Onset Age of this Age Resolved Age Notes LastModified by Organization Details LastModified Time Mother Family history of malignant neoplasm [email or web address] Not available 11:59:35 Father Family history of malignant neoplasm [email or web address] Not available 11:59:35 Sister Family history of malignant neoplasm [id number] Not available 11:59:35 Medical History Condition Response [...] Anemia N Brain Injury N Heart Attack ([place]) N Osteopenia N Diabetes N Bleeding Disorder [...] Diagnosis/Indication Diagnosis SNOMED-CT Code Diagnosis ICD10 Code Diagnosis Note [id number] MD ARCHANA Escobedo [address] [place] [address] 03/07/2024 10:52:34 03/07/2024 11:49:40 Low back pain 933903145 M54.50 Additional diagnosis detail: Lumbar pain [id number] MD ARCHANA Escobedo [address] [place] [address] 04/04/2024 13:22:04 04/04/2024 13:42:38 Low back pain 449106868 M54.50 Accident w nadia engaged in work-related activity [id number] Y99.0 [id number] MD ARCHANA Escobedo [address] [place] [address] 05/02/2024 09:03:22 05/02/2024 09:17:26 Low back pain 577707875 M54.50 Additional diagnosis detail: Lumbar pain Accident w hile engaged in work-related activity [id number] Y99.0 [id number] MD ARCHANA Escobedo [address] [place] [address] 05/30/2024 08:58:51 05/30/2024 09:17:42 Low back pain 660516893 M54.50 Additional diagnosis detail: Lumbar pain Accident melvi [email or web address] engaged in work-related activity [id number] Y99.0 Health Concerns Section Related Observation LastModified [...] Details Recorded Time 05/02/2024 text/html PRIOR DMK:48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
== END 2024-10-18 15:11 | disposition home or self-care (01) ==
PROVIDERS: Emergency Provider Student in an Organized Health Care Education/Training Program; PCP Internal Medicine
DX: M54.50 Low back pain, unspecified (principal); R79.89 Other specified abnormal findings of blood chemistry; Z20.5 Contact with and (suspected) exposure to viral hepatitis; Z79.899 Other long term (current) drug therapy
CPT/HCPCS: 90371; 90471; 99282; 99284

== ENCOUNTER 2025-02-10 07:40 | Outpatient (REF) | payer OTHER, SELFPAY | END 2025-02-10 07:41 | disposition home or self-care (01) | LOC: HO.MAMMO 07:40 | PROVIDERS: PCP Internal Medicine; Visit Provider Internal Medicine | DX: Z12.31 Encounter for screening mammogram for malignant neoplasm of breast (principal) | CPT/HCPCS: 77063; 77067 ==

== ENCOUNTER → 2025-02-10 07:45 | Outpatient (BNV) | payer OTHER, SELFPAY | PROVIDERS: PCP Internal Medicine; Visit Provider Internal Medicine | DX: Z12.31 Encounter for screening mammogram for malignant neoplasm of breast (principal) | CPT/HCPCS: 77063; 77067 ==

== ENCOUNTER 2025-02-19 09:07 | Emergency (ER) | payer OTHER, SELFPAY ==
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
[2025-02-19 09:08] VITALS: BP 154/102; PULSE 90; RESP 18; TEMP 36.1; O2SAT 99; BMI 34.1
--- OUTSIDE RECORDS SUMMARY | 2025-02-19 09:46 | XMS_ITS | Data Portability ---
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 2023 024 GATO Not available 07:20:59 Procedures None recorded. Surgeries None recorded. Imaging XR, lumbosacral spine, 2 or 3 view 2023 024 hunter 2 [facility], [address], [address], [place], [address], 12:03:19 Medication Orders None recorded. Patient TargetsNo targets recorded. Patient Instructions Encounter Date Encounter Id Patient Instructions Last Modified By Organization Details Last Modified Time 03/07/2024 [id number] views of lumba r spine were obtained today 03/07/2024 in the [place] office. Normal spinal curvature. Well-maintained vertebral body height and disc space. Mild to moderate loss at L5-S1. No fracture or spondylolisthesis . Not available 03/07/2024 12:11:13 04/04/2024 [id number] work status report* - Light duty work starting April 10, 2024: No lifting greater than 20 pounds. No repetitive bending lifting or twisting. [email or web address] Not available 04/11/2024 08:34:16 05/02/2024 [id number] work status report* - Return to work on 05/02/24 with the following light duty restrictions: No lifting greater than 20 pounds. No repetitive bending lifting or twisting. [email or web address] Not available 05/09/2024 07:37:27 05/30/2024 [id number] work status report* - Return to full duty work on 05/30/24 [email or web address] Not available 06/06/2024 08:12:15 Reason for Referral Additional Comments:Active r ehab home exercise program continue to work readiness. Referring Physician: Armand Pagan, Orthopedic Surgery, Encounter Date: 04/04/2024 Problems Name Problem SNOMED Code Status Onset Date Resolution Date Notes Provider Name and Address Organization Details Recorded Time Low back pain 413105433 Active 024 Armand Pagan MD [address], [place], [address] , [place] [facility] 4 13:35:01 Accident while engaged in work-relat ed activity Active 024 Armand Pagan MD [address], [place], [address] , [facility], [facility] 4 13:37:00 Problem Notes None recorded. Procedures Surgical History Date Name Laterality Status Provider Name and Address Organization Details Recorded Time loop electrosurgical excision procedure completed Juditeleanor Doshi [facility], [facility] 03/07/2024 12:05:15 endometrial resection completed Judit Dohsi [facility], [facility] 03/07/2024 12:07:28 Imaging Results None recorded. Procedure Notes None recorded. Medical Equipment None Reported. Allergies Allergen ID Allergen Name Allergen Category Reaction Reaction Severity Criticality Documentation Date Start Date Code Code System Note Provider Name and Address Organization Details Recorded Time 65463 Product containin g gadoliniu m and/or gadoliniu m compound (product) medicatio n Not available Not available Not available 03/07/2024 31180 3008 SNOMED Judit Tico raymond, [facility], [facility] 4 11:58:57 [id number] cat dander environme nt Not available Not available Not available 03/07/2024 [id number] [facility]K [facility] 11:59:02 Medications Name Sig Start [...] Updated DateTime 03/07/2024 161.29 cm 30.2 kg/m2 25442.48 g As[facility] 03/07/2024 11:16:29 Date Recorded Body height Body mass index (BMI) Body weight Provider Name and Address Organization Details Last Updated DateTime 04/04/2024 161.29 cm 29.6 kg/m2 13082.7 g Judit Tico [facility] 04/04/2024 13:28:23 Date Recorded Body height Body mass index (BMI) Body weight Provider Name and Address Organization Details Last Updated DateTime 05/02/2024 161.29 cm 29.6 kg/m2 74730.7 g Judit Tico [facility] 05/02/2024 09:05:06 Date Recorded Body height Body mass index (BMI) Body weight Provider Name and Address Organization Details Last Updated DateTime 05/30/2024 161.29 cm 29.6 kg/m2 78420.7 g Judit Tico [facility] 05/30/2024 09:05:06 Social History None recorded. Functional Status Question Answer Note LastModified by Organizat ion Details LastModified Time How many times per week do you consume alcohol? 1-2 times per week [email or web address] Information not available 03/07/2024 Do you use any illicit or recreational drugs? No [email or web address] Information not available 03/07/2024 Do you or have you ever used any other forms of tobacco or nicotine? No [email or web address] Information not available 03/07/2024 What is your level of alcohol consumption? Occasional [email or web address] Information not available 03/07/2024 Mental Status None recorded. Family History Relationship Description Onset Age of this Age Resolved Age Notes LastModified by Organization Details LastModified Time Mother Family history of malignant neoplasm [email or web address] Not available 11:59:35 Father Family history of malignant neoplasm [email or web address] Not available 11:59:35 Sister Family history of malignant neoplasm [email or web address] Not available 11:59:35 Medical History Condition Response [...] Anemia N Brain Injury N Heart Attack (PA) N Osteopenia N Diabetes N Bleeding Disorder N Seizures/Epilepsy Y AIDS/HIV N Congestive Heart Failure (CHF) N Asthma N Amputation N Reflux/GERD N Sleep Apnea N Aneurysm N Hepatitis N Heart Disease N Pulmonary Embolism N Hypertension N Osteoporosis N Gynecological HistoryNo gynecological history recorded. Obstetrics History GPAL:G 0 P 0 0 0 0 Past Encounters Encounter ID Performer Location Encounter Start Date Encounter Closed Date Diagnosis/Indication Diagnosis SNOMED-CT Code Diagnosis ICD10 Code Diagnosis Note [id number] JAN ANNE [address] [place] [address] 03/07/2024 10:52:34 03/07/2024 11:49:40 Low back pain 028334779 M54.50 Additional diagnosis detail: Lumbar pain [id number] MD ARCHANA Escobedo [address] [place] [address] 04/04/2024 13:22:04 04/04/2024 13:42:38 Low back pain 716279005 M54.50 Accident w hile engaged in work-related activity 85222447 Y99.0 [id number] JAN ANNE [address] [place] [address] 05/02/2024 09:03:22 05/02/2024 09:17:26 Low back pain 213522732 M54.50 Additional diagnosis detail: Lumbar pain Accident w hile engaged in work-related activity 36403165 Y99.0 [id number] JAN ANNE [address] [place] [address] 05/30/2024 08:58:51 05/30/2024 09:17:42 Low back pain 666630068 M54.50 Additional diagnosis detail: Lumbar pain Accident melvi zuniga engaged in work-related activity 88382065 Y99.0 Health Concerns Section Related Observation LastModified [...] Details Recorded Time 05/02/2024 text/html PRIOR DMK:48-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
--- OUTSIDE RECORDS SUMMARY | 2025-02-19 09:46 | XMS_ITS | Clinical Summary ---
Author Organization [facility] Address [address] [place] [address] Care Team Providers Care Environmental Tech Name Role Phone Pcp, No Primary Care Provider Unavailabl e Immunizations Immunization Administration Dates Next Due Hepatitis A 11/27/2010,05/29/2010 Tdap 05/29/2010 Typhoid Inactivated 05/29/2010 Social History Tobacco Use Types Packs/Day Years Used Date Smoking Tobacco: Never Assessed Comments Unknown Sex and Gender Information Value Date Recorded Sex Assigned at Not on file Legal Sex Female 1:57 PM EDT Gender Identity Not on file Sexual Orientation Not on file Last Filed Vital Signs Vital Sign Reading Time Taken Comments Blood Pressure 100/70 02/23/2023 2:24 PM EDT Pulse 91 02/23/2023 2:24 PM EDT Temperature 36.4 ??C (97.5 ??F) 02/23/2023 2:24 PM ED T Respiratory Rate - - Oxygen Saturation 99% 02/23/2023 2:24 PM EDT Inhaled Oxygen Concentration - - Weight 74.4 kg (164 lb) 02/23/2023 2:24 PM EDT Height 160 cm (5' 3 ) 02/23/2023 2:24 PM EDT Body Mass Index 29.05 02/23/2023 2:24 PM EDT Plan of Treatment Health Maintenance Due Date Last Done Comments Hepatitis C Virus Screening 1976 HIV Screening 1989 Hepatitis B Vaccines (1 of 3 - 19+ 3-dose series) 12/21/1995 DTaP/Tdap/Td Vaccines (2 - T d or Tdap) 05/29/2020 05/29/2010 COVID-19 Vaccine (2023-2 5 season) 2024 Pneumococcal Vaccine: Pediat ruddy (0-5 Years) and At-Risk Patients (6 to 49 Years) Aged Out No longer eligible b ased on patient's age to complete this topic Care Teams Environmental Tech Relationship Specialty Start Date End Date Pcp, No PCP - General General Medicine 02/23/23
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
[2025-02-19 10:32] VITALS: BP 123/81; PULSE 79; RESP 14; TEMP 36.5; O2SAT 100
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
[2025-02-19] MEDS: Ibuprofen 600 MG TABLET PO (12:10)
[2025-02-19] MEDS: iohexoL 350 MG/ML 100 ML INFUS..BTL IV (12:12)
[2025-02-19 13:29] VITALS: BP 123/81; PULSE 79; RESP 14; TEMP 36.5; O2SAT 100
[2025-02-19 13:57] LABS: HCG Quantitative < 2 mIU/mL
== END 2025-02-19 13:31 | disposition home or self-care (01) ==
PROVIDERS: Physician Assistant Medical; Emergency Provider Emergency Medicine; PCP Internal Medicine
DX: S90.31XA Contusion of right foot, initial encounter (principal); M79.671 Pain in right foot; R10.2 Pelvic and perineal pain; M25.571 Pain in right ankle and joints of right foot; M54.2 Cervicalgia; N64.4 Mastodynia; R07.89 Other chest pain; T85.898A Other specified complication of other internal prosthetic devices, implants and grafts, initial encounter; R51.9 Headache, unspecified; X58.XXXA Exposure to other specified factors, initial encounter; Y04.2XXA Assault by strike against or bumped into by another person, initial encounter; Y93.89 Activity, other specified; Y92.89 Other specified places as the place of occurrence of the external cause; Y99.8 Other external cause status; Z79.899 Other long term (current) drug therapy
CPT/HCPCS: 36415; 70450; 71260; 72125; 73610; 73630; 84702; 99284; Q9967

== ENCOUNTER → 2025-02-19 11:16 | Outpatient (BNV) | payer OTHER, SELFPAY | PROVIDERS: Emergency Provider Emergency Medicine; PCP Internal Medicine; Visit Provider Radiology Diagnostic Radiology | DX: K44.9 Diaphragmatic hernia without obstruction or gangrene (principal); M54.2 Cervicalgia; R51.9 Headache, unspecified; S99.921A Unspecified injury of right foot, initial encounter | CPT/HCPCS: 70450; 71260; 72125; 73610; 73630 ==

== ENCOUNTER 2025-03-21 07:14 | Outpatient (REF) | payer OTHER, SELFPAY ==
--- NOTE | ~2025-03-21 | MM_ITS ---
EXAMINATION: MM DIAGNOSTIC DIGITAL BREAST TOMOSYNTHESIS, LEFT Limited left breast ultrasound. CLINICAL INFORMATION: Call back from screening for asymmetry in the lower left breast on MLO view. COMPARISON: Mammography: Priors on PACS TECHNIQUE: Digital breast tomosynthesis is performed in both the craniocaudal and mediolateral oblique views along with computer-aided detection (CAD). Synthesized 2D images are generated from the tomosynthesis. FINDINGS: The breasts are heterogeneously dense, which may obscure small masses (ACR BI-RADS breast composition Category c). The previously seen asymmetry in the lower left breast on MLO view does not persist on additional imaging projections and likely represented overlapping breast tissue. No suspicious calcifications, masses or other abnormal findings. Targeted color Doppler ultrasound scanning from 4-8:00 in the left breast demonstrates normal fibronodular breast tissue. There is no sonographic abnormal findings. MM/MM tomosynthesis added views L IMPRESSION: No mammographic or sonographic evidence of malignancy. ASSESSMENT: BI-RADS BI-RADS 1 - Negative RECOMMENDATION: 1 year F/U Results were provided to the patient at time of visit by the technologist. This patient's information was entered into a reminder system with a target due date for their next mammogram. Electronically signed by: Rajni Shearer DO 03/21/2025 08:36 AM EDT
== END 2025-03-21 07:15 | disposition home or self-care (01) ==
LOC: HO.MAMMO 07:14
PROVIDERS: Visit Provider Internal Medicine
DX: N64.89 Other specified disorders of breast (principal)
CPT/HCPCS: 76642; 77061; 77065

== ENCOUNTER → 2025-03-21 07:30 | Outpatient (BNV) | payer OTHER, SELFPAY | PROVIDERS: Visit Provider Internal Medicine | DX: N64.89 Other specified disorders of breast (principal) | CPT/HCPCS: 76642; 77061; 77065 ==

== ENCOUNTER 2025-08-02 14:03 | Outpatient (AMB) | payer OTHER, SELFPAY ==
--- NOTE | 2025-08-02 15:00 | MHC.OFFVIS ---
Intake Visit Reasons: 1y f/u Intake Note: Patient is present for 1yr follow up Urology Medication:OXYBUTYNIN Antibiotic Allergy:NONE Blood Thinner:NONE Inspector Weights And Measures Required: No Allergies cat dander Allergy (Severe, Verified 08/02/25 15:04) Anaphylaxis Gadolinium-Containing Contrast Medi (GADOLINIUM-CONTAINING CONTRAST) Allergy (Severe, Verified 08/02/25 15:04) Anaphylaxis acetaminophen (Percocet) Allergy (Intermediate, Verified 08/02/25 15:04) Itching fluoxetine (From PROZAC) Allergy (Intermediate, Verified 08/02/25 15:04) PALPITATIONS oxycodone (Percocet) Allergy (Intermediate, Verified 08/02/25 15:04) Itching paroxetine (Paxil) Allergy (Intermediate, Verified 08/02/25 15:04) Palpitations divalproex sodium (From Depakote) Adverse Reaction (Intermediate, Verified 08/02/25 15:04) Tremor topiramate (From Topamax) Adverse Reaction (Intermediate, Verified 08/02/25 15:04) Clouded mentation diphenhydramine (From Benadryl) Adverse Reaction (Unknown, Verified 08/02/25 15:04) Lower seizure threshold Medication List - Last Reconciled 08/02/25 by Juan Luis Rice MD albuterol sulfate 90 mcg/actuation (Ventolin HFA) 2 puffs inhalation Q6H PRN alprazolam 0.5 mg PO DAILY amitriptyline 25 mg PO BEDTIME cetirizine 10 mg PO DAILY fluticasone propionate 110 mcg/actuation 2 puffs inhalation BID fluticasone propionate 50 mcg/actuation 1 spray intranasal BID levetiracetam 1,000 mg PO BID levonorgestrel (Mirena) 52 device intrauterine DIRECTED loratadine (Allergy Relief (loratadine)) 10 mg PO DAILY PRN omeprazole 20 mg PO DAILY 4 weeks ondansetron 4 mg PO Q8H PRN oxybutynin chloride ER 10 mg PO DAILY sumatriptan succinate (Imitrex) 50 mg PO DAILY PRN HPI Comments Details: 08/02/25--Regi is a 49-year-old female with chronic interstitial cystitis she is on oxybutynin 10 mg daily for frequency symptoms. She had cysto hydrodistention in December of 2020. She is here for annual follow-up. She states she has on amitriptyline 06/14/2024--Bessie is a pleasant female. She is a patient of . She seen for the following urologic conditions - interstitial cystitis LV 2020- the patient states that she had several medical conditions that prevented her from following up with the office sooner. Currently she denies significant bladder symptoms she does use oxybutynin on a p.r.n. basis. She feels that the oxybutynin helps with urinary urge symptoms. She had a positive response with clinical improvement of pelvic pain and urgency with hydrodistention. 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 Endometriosis Surgical History Hx of colonoscopy History of esophagogastroduodenoscopy (EGD) Hx of cystoscopy History of left oophorectomy (~2019) History of elective breast augmentation (~2018) History of loop electrical excision procedure (LEEP) Family History Mother History of gastric cancer Breast cancer Maternal Grandmother Ovarian cancer Uterine cancer Cervical cancer Paternal Grandmother Breast cancer Maternal Uncle Pancreatic cancer Maternal Aunt Pancreatic cancer Paternal Uncle Pancreatic cancer Social History Household Members: Family Housing: House Are you a primary animal care giver to a significant other at home: Yes (dad) Do you presently have visiting nurse or other home services: No Alcohol intake: current Alcohol intake frequency: holidays/special occasions only Patient Tobacco Use Status: Never used Tobacco Second Hand Smoke Exposure: No service: No Current occupational status: other Gender identity: Female Female Reproductive History Menstrual Age of Menarche: 13 Results AMB Urinalysis, Automated UA Leukoctes 0 Abby/uL Last Edit by Anne-Marie Jones on 08/02/25 17:10 UA Nitrite Negative Last Edit by Anne-Marie Jones on 08/02/25 17:10 UA Urobilinogen 0.2 mg/dL Last Edit by Anne-Marie Jones on 08/02/25 17:10 UA Protein 0 mg/dL Last Edit by Anne-Marie Jones on 08/02/25 17:10 UA pH 6.5 Last Edit by Anne-Marie Jones on 08/02/25 17:10 UA Blood 25 Neptali/uL Last Edit by Anne-Marie Jones on 08/02/25 17:10 UA Specific Capron 1.010 Last Edit by Anne-Marie Jones on 08/02/25 17:10 UA Ketone Negative Last Edit by Anne-Marie Jones on 08/02/25 17:10 UA Bilirubin 0 mg/dL Last Edit by Anne-Marie Jones on 08/02/25 17:10 UA Glucose 0 mg/dL Last Edit by Anne-Marie Jones on 08/02/25 17:10 Assessment & Plan Assessment & Plan Orders: Orders AMB Urinalysis Automated Today Z13.9 - Encounter for screening, unspecified Coding
--- OUTSIDE RECORDS SUMMARY | 2025-08-02 17:03 | XMS_ITS | Clinical Summary ---
Author Organization [address] [facility] Address [address] [place] [address] Phone Care Team Providers Care Manager Nc Name Role Phone Jose Alejandro Nichols MD Primary Care Provider [phone] Allergies Active Allergy Reactions Criticality Noted Date Comments Gadolinium-Containing Contrast Media 05/15/2025 Swollen & shortness of breath Medications albuterol HFA (PROAIR HFA ; PROVENTIL HFA ; VENTOLIN HFA) 90 mcg/actuation inhaler INHALE 2 PUFFS 4 TIMES A DAY NEEDED FOR WHEEZING 03/16/20 25 Active ALPRAZolam (XANAX) 0.5 mg tablet TAKE 1 TABLET BY MOUTH ONCE DAILY FOR NIGHT TERRORS 04/23/20 25 Active amitriptyline (ELAVIL) 25 mg tablet Take 1 tablet (25 mg total) by mouth at bedtime. 02/20/20 25 Active Symbicort 160-4.5 mcg/actuation inhaler INHALE 2 PUFFS TWICE A DAY (MORNING AND EVENING)..RINSE MOUTH/THROAT AFTER USE 02/23/20 25 Active cetirizine (ZyrTEC) 10 mg tablet Take 1 tablet (10 mg total) by mouth at bedtime. 03/09/20 25 Active EPINEPHrine (EPIPEN) 0.3 mg/0.3 mL injection INTRAMUSCULAR INJECT IM DIRECTED NEEDED FOR SOB, SWELLING ASSOCIATED WITH SEVERE ALLERGY 02/13/20 25 Active fluticasone propionate (FLONASE) 50 mcg/actuation nasal spray Administer 1 spray into each nostril 2 (two) times a day. 02/23/20 25 Active levETIRAcetam (KEPPRA) 1,000 mg tablet Take 1 tablet (1,000 mg total) by mouth 2 (two) times a day. 03/21/20 25 Active montelukast (SINGULAIR) 10 mg tablet TAKE 1 TABLET BY MOUTH EVERY DAY BEFORE DINNER 02/23/20 25 Active ondansetron ODT (ZOFRAN-ODT) 4 mg disintegrating tablet LET 1 TABLET DISSOLVE ON TOP OF THE TONGUE EVERY DAY FOR 30 DAYS 06/01/20 24 Active oxyBUTYnin XL (DITROPAN-XL) 10 mg 24 hr tablet Take 1 tablet (10 mg total) by mouth 1 (one) time each day. 06/14/20 24 Active SUMAtriptan (IMITREX) 50 mg tablet TAKE TABLET AT ONSET OF MIGRAINE, MAY REPEAT AFTER 2 HOURS IF NEEDED 06/01/20 24 Active Active Problems Problem Noted Date Diagnosed Date Upward migration of dens, basilar invagination 0 05/15/2025 Assessment & Plan (05/15/2025 11:21 AM EDT): I reviewed the multiple CT scans in detail with Ms. Almanza and reassured her that the C1-2 alignment and position of the odontoid are stable across all studies and likely the same congenital finding she was told of as a teenager. There has been no change due to her recent fall and it is unlikely to progress naturally. This is just her anatomy. She has no physical findings referable to brainstem kinking or myelopathy. She states that she has had an MRI of the brain in the past due to her seizure diagnosis as she recalls being told of some white matter lesions. At this point, I do not feel that we need to order any new studies. In terms of management of this neck pain and headache, she does not feel that it is any way like her previous symptoms of occipital neuralgia so there is no intervention. I recommended just alternating ice and heat and taking ibuprofen as needed. She should follow-up with her neurologist per her regular schedule. Encounters Date Type Department Care Team Description 05/15/2025 10:30 AM EDT Consult Neurosurgery [place] - [address] [place] [id number] Sally Brady MD Upward migration of dens, basilar invagination (Primary Dx) from Last 3 Months Surgical History Surgery Date Site/Laterality Comments SALPINGOOPHORECTOMY BREAST ENHANCEMENT SURGERY Medical History Medical History Date Comments Epilepsy ([facility] V24, [facility] V28) Long COVID Night terrors Social History Tobacco Use Types Packs/Day Years Used Date Smoking Tobacco: Never Assessed Comments Unknown Sex and Gender Information Value Date Recorded Sex Assigned at Not on file Legal Sex Female 5:21 AM EST Gender Identity Not on file Sexual Orientation Not on file Obstetrics History Last Filed Vital Signs Vital Sign Reading Time Taken Comments Blood Pressure - - Pulse - - Temperature - - Respiratory Rate - - Oxygen Saturation - - Inhaled Oxygen Concentration - - Weight 86.2 kg (190 lb) 05/15/2025 10:36 AM EDT Height 160 cm (5' 3 ) 05/15/2025 10:36 AM EDT Body Mass Index 33.66 05/15/2025 10:36 AM EDT Plan of Treatment Health Maintenance Due Date Last Done Comments Breast Cancer Screening 1976 Colorectal Cancer Screening: Colonoscopy 1976 Hepatitis B Vaccines (1 of 3 - 19+ 3-dose series) 12/21/1995 Cervical Cancer Screening: Pap Smear 1997 Depression Screening 10/04/2024 HIV Screening 05/04/2025 Hepatitis C Screening 05/04/2025 Social Influencers of Health Screening 05/04/2025 COVID-19 Vaccine ( - season) 2025 06/16/2022, 10/07/2021, 09/16/2021 Influenza Vaccine (#1) 2025 , 08/10/2023, 07/06/2022, Additional history exists DTaP,Tdap,and Td Vaccines (3 - Td or Tdap) 07/06/2032 07/06/2022, 05/29/2010 RSV Immunization Adult Patients (1 - 1-dose 75+ series) 12/21/2051 Hepatitis A Vaccines Aged Out 11/27/2010, 05/29/20 10 No longer eligible based on patient's age to complete this topic HIB Vaccines Aged Out No longer eligi ble based on patient's age to complete this topic HPV Vaccines Aged Out No longer eligi ble based on patient's age to complete this topic IPV Vaccines Aged Out No longer eligi ble based on patient's age to complete this topic MMR Vaccines Aged Out No longer eligi ble based on patient's age to complete this topic Meningococcal ACWY Vaccine Aged Out N o longer eligible based on patient's age to complete this topic Meningococcal B Vaccine Aged Out No l onger eligible based on patient's age to complete this topic Pneumococcal Vaccine: Pediatrics (0 to 5 Years) and At-Risk Patients (6 to 49 Years) Aged Out No longer eligible based on patient's age to complete this topic RSV Immunization Patients Under 20 months Aged Out No longer eligible based on patient's age to complete this topic Varicella Vaccines Aged Out No longer eligible based on patient's age to complete this topic Insurance PLAN Care Teams Manager Nc Relationship Specialty Start Date End Date Jose Alejandro Nichols MD [address] [place] [address] [address] [place], [place] PCP - General Internal Medicine 05/03/25
--- OUTSIDE RECORDS SUMMARY | 2025-08-02 17:03 | XMS_ITS | Data Portability ---
Author Organization [place] [facility] Sahil Black [facility] [place] Address [address] [place] [address] Care Team Providers Care Farm Products Shipper Name Role Phone KENIA VALERO Silver Solution Mixer MERCED DE SOUZA Primary Care Provider [phone] MERCED DE SOUZA Referring Provider Assessment Encounter Date Assessment Date Assessment LastModified by Organization Details LastModified Time 03/07/2024 03/07/2024 HPI 48-year-old female injured worker presents to the office today for evaluation of SI joint pain. 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 She was bending over doing wound [...] Normal tone in all 4 extremities. Negative Lott s bilaterally. Negative Clonus bilaterally. 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 Patient TargetsNo targets recorded. Patient Instructions Encounter Date Encounter Id Patient Instructions Last Modified By Organization Details Last Modified Time 03/07/2024 [id number] views of lumba r spine were obtained today 03/07/2024 in the [place] office. Normal spinal curvature. Well-maintained vertebral body height and disc space. Mild to moderate loss at L5-S1. No fracture or spondylolisthesis . Not available 03/07/2024 12:11:13 04/04/2024 [id number] work status report* - Light duty work starting April 10, 2024: No lifting greater than 20 pounds. No repetitive bending lifting or twisting. [email or web address] Not available 04/11/2024 08:34:16 05/02/2024 [id number] work status report* - Return to work on 05/02/24 with the following light duty restrictions: No lifting greater than 20 pounds. No repetitive bending lifting or twisting. [email or web address] Not available 05/09/2024 07:37:27 05/30/2024 [id number] work status report* - Return to full duty work on 05/30/24 [email or web address] Not available 06/06/2024 08:12:15 Reason for Referral Additional Comments:Active r ehab home exercise program continue to work readiness. Referring Physician: Armand Pagan, Orthopedic Surgery, Encounter Date: 04/04/2024 Problems Name Problem SNOMED Code Status Onset Date Resolution Date Notes Provider Name and Address Organization Details Recorded Time Low back pain 772110385 Active Armand Pagan MD [address], [place], [address] , [place] [facility], [facility] 4 13:35:01 Accident while engaged in work-relat ed activity Active 024 Armand Pagan MD [address], [place], [address] , [facility], P 4 13:37:00 Problem Notes None recorded. Procedures Surgical History Date Name Laterality Status Provider Name and Address Organization Details Recorded Time loop electrosurgical excision procedure completed Juditeleanor Doshi [facility], P 03/07/2024 12:05:15 endometrial resection completed Judit Doshi [facility], [facility] 03/07/2024 12:07:28 Imaging Results None recorded. Procedure Notes None recorded. Medical Equipment None Reported. Allergies Allergen ID Allergen Name Allergen Category Reaction Reaction Severity Criticality Documentation Date Start Date Code Code System Note Provider Name and Address Organization Details Recorded Time 05980 Product containin g gadoliniu m and/or gadoliniu m compound (product) medicatio n Not available Not available Not available 03/07/2024 35349 3008 SNOMED Judit Tico raymond, [facility], [facility] 4 11:58:57 94142 cat dander environme nt Not available Not available Not available 03/07/2024 [facility] 11:59:02 Medications Name Sig Start [...] Updated DateTime 03/07/2024 161.29 cm 30.2 kg/m2 79052.48 g [facility] 03/07/2024 11:16:29 Date Recorded Body height Body mass index (BMI) Body weight Provider Name and Address Organization Details Last Updated DateTime 04/04/2024 161.29 cm 29.6 kg/m2 09432.7 g Judit Tico [facility] 04/04/2024 13:28:23 Date Recorded Body height Body mass index (BMI) Body weight Provider Name and Address Organization Details Last Updated DateTime 05/02/2024 161.29 cm 29.6 kg/m2 61167.7 g Judit Tico [facility] 05/02/2024 09:05:06 Date Recorded Body height Body mass index (BMI) Body weight Provider Name and Address Organization Details Last Updated DateTime 05/30/2024 161.29 cm 29.6 kg/m2 99738.7 g Judit Tico [facility] 05/30/2024 09:05:06 Social History None recorded. Functional Status Question Answer Note LastModified by Organizat ion Details LastModified Time How many times per week do you consume alcohol? 1-2 times per week [email or web address] Information not available 03/07/2024 Do you use any illicit or recreational drugs? No [email or web address] Information not available 03/07/2024 Do you or have you ever used any other forms of tobacco or nicotine? No [email or web address] Information not available 03/07/2024 What is your level of alcohol consumption? Occasional [email or web address] Information not available 03/07/2024 Mental Status None recorded. Family History Relationship Description Onset Age of this Age Resolved Age Notes LastModified by Organization Details LastModified Time Mother Family history of malignant neoplasm [email or web address] Not available 11:59:35 Father Family history of malignant neoplasm [email or web address] Not available 11:59:35 Sister Family history of malignant neoplasm [id number] Not available 11:59:35 Medical History Condition Response [...] Anemia N Brain Injury N Heart Attack (AR) N Osteopenia N Diabetes N Bleeding Disorder [...] Diagnosis SNOMED-CT Code Diagnosis ICD10 Code Diagnosis IMO Codes Diagnosis Note [id number] [address] [place] [address] 03/07/2024 10:52:34 03/07/2024 11:49:40 Low back pain 430887669 M54.50 Additional diagnosis detail: Lumbar pain [id number] MD ARCHANA Escobedo [address] [place] [address] 04/04/2024 13:22:04 04/04/2024 13:42:38 Low back pain 088672155 M54.50 Accident w anuele engaged in work-related activity 00241082 Y99.0 [id number] [address] [place] [address] 05/02/2024 09:03:22 05/02/2024 09:17:26 Low back pain 853611940 M54.50 Additional diagnosis detail: Lumbar pain Accident w hile engaged in work-related activity 43964148 Y99.0 [id number] [address] [place] [address] 05/30/2024 08:58:51 05/30/2024 09:17:42 Low back pain 437603420 M54.50 Additional diagnosis detail: Lumbar pain Accident melvi zungia engaged in work-related activity 69180658 Y99.0 Health Concerns Section Related Observation LastModified by Organization Detai ls LastModified Time None Recorded Concern Status LastModified by Organization Details LastModified Time None Recorded Advance Directives Directive None Recorded Payers Insurance Date Sequence Insurance Name Policy Number Policy Welsh Covered Member ID Welsh Member ID Guarantor Name 05/31/2024 [employer] Bessie Guerrier Notes Date Note Type Note Provider Name and Address Organization Details Recorded Time 03/07/2024 text/html ROS as noted in the HPI [address], [place], [address], [place] [facility] 03/07/2024 12:14:01 05/02/2024 text/html ROS as noted in the HPI PRIOR DMK:48-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 No repetitive bending lifting or twisting. [address], [place], [address], [place] [facility], [facility] 05/02/2024 09:22:23 05/30/2024 text/html ROS as noted in the HPI [address], [place], [address], [place] [facility], [facility] 05/30/2024 09:18:02 OBGyn Episode No OBEpisode recorded.
--- OUTSIDE RECORDS SUMMARY | 2025-08-02 17:03 | XMS_ITS | Patient Health Record ---
Author Organization [facility] Address [address] [place] [address] Care Team Providers Care Gps Navigation Installer Name Role Phone Jaycob Nichols MD Primary Care Provider Kirt Herman Jr Unavailable Reason For Referral No Information Social History Tobacco Use: Social History Observation Description Date Details (start date - stop date) Never Smoker NA - NA Tobacco Use/Smoking Question Answer Notes Patient is a nonsmoker Plan Of Treatment No Information Insurance Providers Payer Name Payer Address Payer Phone Subscriber Number Group Number Insured Name Patient Relationship to Insured Coverage Start Date Coverage End Date [facility] [address] [place] [phone] [id number] LAM ALMANZA Self - patient is the insured Medical (General) History Medical History History ICD Code irritable bowel syndrome anxiety migranes hematuria
--- OUTSIDE RECORDS SUMMARY | 2025-08-02 17:03 | XMS_ITS ---
[facility] Name [facility] Unknown Results Test Name/Text Value Interpretation Date Range Source Chloride SerPl-sCnc 102.0 mmol/L 04/30/2025 98 - 1 07 [facility] BUN SerPl-mCnc 19.0 mg/dL 04/30/2025 8 - [address] Potassium SerPl-sCnc 4.0 mmol/L 04/30/2025 3.4 - 5 .3 [facility] Sodium SerPl-sCnc 136.0 mmol/L 04/30/2025 136 - 14 5 [facility] CO2 SerPl-sCnc 22.0 mmol/L 04/30/2025 22 - 33 HH CCT Creat SerPl-mCnc 1.0 mg/dL 04/30/2025 0.4 - 1.1 [facility] CCT Glucose SerPl-mCnc 97.0 mg/dL 04/30/2025 65 - 99 [facility] Anion Gap Bld-sCnc 12.0 04/30/2025 7 - 17 [facility] Calcium SerPl-mCnc 8.8 mg/dL 04/30/2025 8.7 - 10.5 [facility] GFR/BSA.pred SerPlBld CLO-LYR-DuKLnp 69.0 04/30/2025 59 - [facility] BUN/Creat SerPl 19.0 Ratio 04/30/2025 10 - 25 HH CCT B-HCG Preg SerPl Ql Negative 04/30/2025 - [facility] Imm Granulocytes/leuk NFr Bld Auto 0.4 % 04/30/2025 [facility] Platelet num Bld Auto 238.0 Thou/uL 04/30/2025 150 - 450 [facility] Imm Granulocytes num Bld Auto 0.03 Thou/uL 04/30/2025 0 - 0.1 [facility] PMV Bld Auto 10.5 fL 04/30/2025 7.5 - 12.5 [facility] Lymphocytes num Bld Auto 1.29 Thou/uL Below low normal 04/30 1.5 - 4.5 [facility] Basophils num Bld Auto 0.03 Thou/uL 04/30/2025 0 - 0.2 [facility] Hct VFr Bld Auto 40.2 % 04/30/2025 35 - 47 HH CCT RBC num Bld Auto 4.24 Mil/uL 04/30/2025 4 - 5.4 [facility] WBC num Bld Auto 8.2 Thou/uL 04/30/2025 4 - 11 [facility] Eosinophil/leuk NFr Bld Auto 1.5 % 04/30/2025 [facility] Monocytes/leuk NFr Bld Auto 7.1 % 04/30/2025 [facility] Hgb Bld-mCnc 13.5 g/dL 04/30/2025 11.7 - 15.7 [facility] T Neutrophils num Bld Auto 6.16 Thou/uL 04/30/2025 2 - 7.5 [facility] MCV RBC Auto 95.0 fL 04/30/2025 80 - 100 [facility] MCH RBC Qn Auto 31.8 pg 04/30/2025 26 - [address] Lymphocytes/leuk NFr Bld Auto 15.7 % 04/30/2025 [facility] RDW RBC Auto-Rto 12.5 % 04/30/2025 11.5 - 14.5 [facility] Neutrophils/leuk NFr Bld Auto 74.9 % 04/30/2025 [facility] MCHC RBC Auto-mCnc 33.6 g/dL 04/30/2025 30 - 36 [facility] Eosinophil num Bld Auto 0.12 Thou/uL 04/30/2025 0 - 0.7 [facility] Monocytes num Bld Auto 0.58 Thou/uL 04/30/2025 0.2 - 1.5 [facility] Basophils/leuk NFr Bld Auto 0.4 % 04/30/2025 [facility] History of Medication Use Medication Directions Dispensed Refills Start Date End Date Stat Flovent HFA 110 mcg/actuation aerosol inhaler PRN 04/04/2024 active fluticasone propionate 50 mcg/actuation nasal spray,suspension PRN 04/04/2024 active GaviLyte-G 236 gram-22.74 gram-6.74 gram-5.86 gram oral solution 240 ML ORALLY EVERY 10 MINUTES FOR 1 DAY UNTIL FECAL EFFLUENT IS CLEAR. MAX VOLUME 2000ML 4 active nitrofurantoin monohydrate/macrocrys tals 100 mg capsule TAKE 1 CAPSULE BY MOUTH TWICE A DAY FOR 7 DAYS 4 active bisacodyl 5 mg tablet,delayed release TAKE 2 TABLETS BY MOUTH AT BEDTIME FOR 2 DAYS 4 completed cyclobenzaprine 10 mg tablet TAKE 1 TABLET BY MOUTH AT NIGHTIME NEEDED FOR SPASMS, DO NOT DRIVE WHILE TAKING 4 completed fluconazole 150 mg tablet TAKE 1 TABLET (ORAL) DAILY FOR 1 DAYS IF SYMPTOMS ARE STILL PRESENT ON DAY 4, REPEAT DOSE. 4 completed ibuprofen 800 mg tablet TAKE 1 TABLET BY MOUTH 3 TIMES A DAY FOR 10 DAYS NEEDED FOR PAIN 4 completed omeprazole 20 mg capsule,delayed release TAKE 1 CAPSULE BY MOUTH EVERY DAY FOR 4 WEEKS 4 completed permethrin 5 % topical cream MASSAGE INTO SKIN FROM HEAD TO SOLES OF FEET. WASH OFF AFTER 8-14 HOURS. REPEAT IN A WEEK. 4 completed phenazopyridine 100 mg tablet TAKE 1 TABLET BY MOUTH 3 TIMES A DAY FOR PAIN FOR 2 DAYS 4 completed tamoxifen 20 mg tablet TAKE 1 TABLET BY MOUTH EVERY DAY 4 completed valacyclovir 500 mg tablet TAKE 1 TABLET BY MOUTH THREE TIMES A DAY FOR 10 DAYS 4 completed albuterol sulfate 2.5 mg/3 mL (0.083 %) solution for nebulization INHALE 1 VIAL EVERY 6 HOURS NEEDED FOR WHEEZING/ FOR SHORTNESS OF BREATH active alprazolam 0.5 mg tablet TAKE 1 TABLET BY MOUTH EVERY DAY AT BEDTIME active amitriptyline 25 mg tablet TAKE 1 TABLET BY MOUTH EVERY DAY AT BEDTIME FOR 30 DAYS active levetiracetam 1,000 mg tablet TAKE 1 TABLET BY MOUTH TWICE A DAY FOR 90 DAYS active loratadine 10 mg tablet TAKE 1 TABLET BY MOUTH EVERY DAY active ondansetron 4 mg disintegrating tablet TAKE 1 TABLET BY MOUTH EVERY 8 HOURS NEEDED FOR NAUSEA AND VOMITING active Ventolin HFA 90 mcg/actuation aerosol inhaler PRN active Allergies Allergen Reaction Severity Comment Documented Date Source Statu s GADOLINIUM-CONTAINING CONTRAST MEDIA [facility]NS_[facility] Problems Problem Status Onset Date Problem Type Date of Resoluti on Source Accident while engaged in work-related activity active 2024-04-04 ProblemAct ENS _[facility]ONECT Low back pain active 2024-04-04 ProblemAct E[facility] Encounters Encounter Type Encounter Reason Primary Diagnosis Location Date Emergency Unspecified injury of head, initial encounter Unspecified injury of head, initial encounter [facility] 04/30/2025 Ambulatory [facility] 04/04/2024 Ambulatory [facility] 03/08/2024 Ambulatory [facility] 03/07/2024 Ambulatory [facility] 03/07/2024 Ambulatory [facility] 02/23/2024 Ambulatory Encounter for pre-employment examination [facility] 02/23/2023 Care Team Organization Name Specialty Phone Email Start Date End Da te [place] [facility] PCP,No Primary Care 02/23/2023 05/29/2025 [facility] NO PCP Primary Care 02/23/2023 02/23/2023
--- OUTSIDE RECORDS SUMMARY | 2025-08-02 17:03 | XMS_ITS | Clinical Summary ---
Author Organization [facility] Address [address] [place] [address] Care Team Providers Care Bale Breaker Operator Name Role Phone Pcp, No Primary Care Provider Unavailabl e Allergies No known active allergies Immunizations Immunization Administration Dates Next Due Hepatitis A 11/27/2010,05/29/2010 Tdap 05/29/2010 Typhoid Inactivated 05/29/2010 Social History Tobacco Use Types Packs/Day Years Used Date Smoking Tobacco: Never Assessed Comments Unknown Sex and Gender Information Value Date Recorded Sex Assigned at Female 04/30/2025 3:20 AM EDT Legal Sex Female 1:57 PM EDT Gender Identity Female 04/30/2025 3:20 AM EDT Sexual Orientation Heterosexual (straight) 04/30 3:20 AM EDT Last Filed Vital Signs Vital Sign Reading Time Taken Comments Blood Pressure 106/72 04/30/2025 5:10 PM EDT Pulse 82 04/30/2025 5:10 PM EDT Temperature 36.6 C (97.9 F) 04/30/2025 12:12 PM EDT Respiratory Rate 17 04/30/2025 5:10 PM EDT Oxygen Saturation 97% 04/30/2025 5:10 PM EDT Inhaled Oxygen Concentration - - Weight 74.4 kg (164 lb) 02/23/2023 2:24 PM EDT Height 160 cm (5' 3 ) 02/23/2023 2:24 PM EDT Body Mass Index 29.05 02/23/2023 2:24 PM EDT Plan of Treatment Health Maintenance Due Date Last Done Comments Hepatitis C Virus Screening 1976 HIV Screening 1989 Hepatitis B Vaccines (1 of 3 - 19+ 3-dose series) 12/21/1995 Pap Smear (Ages 21-65) 1997 Mammogram 2016 DTaP/Tdap/Td Vaccines (2 - T d or Tdap) 05/29/2020 05/29/2010 Colonoscopy 2021 Influenza Vaccine 05/04/2025 COVID-19 Vaccine (2023-2 5 season) 2025 Pneumococcal Vaccine: Pediat ruddy (0-5 Years) and At-Risk Patients (6 to 49 Years) Aged Out No longer eligible b ased on patient's age to complete this topic Insurance MEDICAID OUT OF STATE [facility] [place] [facility] Care Teams Bale Breaker Operator Relationship Specialty Start Date End Date Pcp, No PCP - General General Medicine 02/23/23
== END 2025-08-02 15:19 | disposition home or self-care (01) ==
LOC: HO.HUSH 14:03
PROVIDERS: Visit Provider Urology
DX: Z13.9 Encounter for screening, unspecified (principal)

== ENCOUNTER → 2025-08-02 14:03 | Outpatient (BNVA) | payer OTHER, SELFPAY | PROVIDERS: Visit Provider Urology | DX: N30.10 Interstitial cystitis (chronic) without hematuria (principal); R35.0 Frequency of micturition; R31.29 Other microscopic hematuria; N39.3 Stress incontinence (female) (male); Z13.9 Encounter for screening, unspecified | CPT/HCPCS: 81003; 99212 ==

== ENCOUNTER → 2025-08-22 09:01 | Outpatient (BNV) | payer OTHER, SELFPAY | PROVIDERS: PCP Internal Medicine; Visit Provider Internal Medicine | DX: Z12.39 Encounter for other screening for malignant neoplasm of breast (principal) | CPT/HCPCS: 77049 ==

== ENCOUNTER 2025-08-22 09:05 | Outpatient (REF) | payer OTHER, SELFPAY ==
--- NOTE | ~2025-08-22 | MR_ITS ---
EXAMINATION: MR BREAST WITHOUT AND WITH CONTRAST, BILATERAL CLINICAL INFORMATION: High risk strong family history of breast cancer including mother age 40 and paternal grandmother 50s. COMPARISON: Comparison is made with relevant prior imaging. TECHNIQUE: MR imaging of the breast was performed using T1, T2 and fat saturated techniques. Dynamic multiphase imaging was also performed after the administration of intravenous gadolinium contrast agent. Computer generated 3D reconstruction and enhancement kinetic analysis was ulitized by the radiologist in the interpretation of this examination. FINDINGS: Breast composition: Heterogeneous fibroglandular breast tissue Background parenchymal enhancement: Moderate Bilateral retropectoral implants are normal appearing. LEFT BREAST: No suspicious enhancing masses or areas of non mass enhancement. No axillary or internal mammary adenopathy. RIGHT BREAST: No suspicious enhancing masses or areas of non mass enhancement. No axillary or internal mammary adenopathy. Limited views of the chest and abdomen are unremarkable. MR/MR breast BI wo/w con IMPRESSION: No MR specific evidence of malignancy. ASSESSMENT: LEFT BREAST: BI-RADS 2-Benign RIGHT BREAST: BI-RADS 2-Benign RECOMMENDATIONS: Yearly screening mammography Yearly Breast MRI screening surveillance. Electronically signed by: Rajni Shearer DO 08/22/2025 12:20 PM CAROL
--- NOTE | 2025-08-22 10:28 | HE.PHANOTE ---
08/22/25- Gadobutrol Order entered by Pura Pratt for Gadobutrol and given before verified by pharmacy. Patient has allergy to Gadolinium Containing Contrast Media. Contacted Pura Pratt BEFORE verifying order to question allergy. RN stated they were all aware of allergy and stated patient took doses of Prednisone and benadryl before treatment with contrast. Verifying order because contrast already administered and MRI aware of allergy and ready if patient was to have another allergic reaction.
--- OUTSIDE RECORDS SUMMARY | 2025-08-22 16:59 | XMS_ITS | Patient Health Record ---
Author Organization [facility] Address [address] [place] [address] Care Team Providers Care Balloon Dipper Name Role Phone Jaycob Nichols MD Primary Care Provider Kirt Herman Jr Unavailable Reason For Referral No Information Social History Tobacco Use: Social History Observation Description Date Details (start date - stop date) Never Smoker NA - NA Social History Tobacco Use: Social Info Question Answer Notes Tobacco Use/Smoking Patient is a nonsmoker Plan Of Treatment No Information Insurance Providers Payer Name Payer Address Payer Phone Subscriber Number Group Number Insured Name Patient Relationship to Insured Coverage Start Date Coverage End Date [facility] [address] [place] [phone] [id number] LAM ALMANZA Self - patient is the insured Medical (General) History Medical History History ICD Code irritable bowel syndrome anxiety migranes hematuria
--- OUTSIDE RECORDS SUMMARY | 2025-08-22 16:59 | XMS_ITS | Clinical Summary ---
Author Organization [facility] Address [address] [place] [address] Care Team Providers Care Shank Cementer Hand Name Role Phone Pcp, No Primary Care [...] this topic Insurance MEDICAID OUT OF STATE [facility] [place] Care Teams Shank Cementer Hand Relationship Specialty Start Date End Date Pcp, No PCP - General General Medicine 02/23/23
--- OUTSIDE RECORDS SUMMARY | 2025-08-22 16:59 | XMS_ITS | Clinical Summary ---
Author Organization [facility] Address [address] [place] [address] Phone Care Team Providers Care Senior Gamemaster Name Role Phone Jose Alejandro Nichols MD Primary Care Provider [phone] Allergies Active Allergy Reactions Criticality Noted Date [...] with her neurologist per her regular schedule. Surgical History Surgery Date Site/Laterality Comments SALPINGOOPHORECTOMY BREAST ENHANCEMENT SURGERY Medical History Medical History Date Comments Epilepsy (CMS/HCC V24, CMS/[facility] V28) Long COVID Night terrors Social History [...] of Health Screening 05/04/2025 COVID-19 Vaccine ( season) 2025 06/16/2022, 10/07/2021, 09/16/2021 Influenza Vaccine (#1) 2025 4, 08/10/2023, 07/06/2022, Additional history exists DTaP,Tdap,and Td [...] patient's age to complete this topic [place] [place] [address] PLAN Care Teams Senior Gamemaster Relationship Specialty Start Date End Date Jose Alejandro Nichols MD [address] [place] [address] [address] [place], [place] PCP - General Internal Medicine 05/03/25
--- OUTSIDE RECORDS SUMMARY | 2025-08-22 16:59 | XMS_ITS | Data Portability ---
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 Patient TargetsNo targets recorded. Patient Instructions Encounter Date Encounter Id Patient Instructions Last Modified By Organization Details Last Modified Time 03/07/2024 [id number] views of lumba r spine were obtained today 03/07/2024 in the [place] office. Normal spinal curvature. Well-maintained vertebral body height and disc space. Mild to moderate loss at L5-S1. No fracture or spondylolisthesis . Not available 03/07/2024 12:11:13 04/04/2024 [id number] work status report* - Light duty work starting April 10, 2024: No lifting greater than 20 pounds. No repetitive bending lifting or twisting. [email or web address] Not available 04/11/2024 08:34:16 05/02/2024 [id number] work status report* - Return to work on 05/02/24 with the following light duty restrictions: No lifting greater than 20 pounds. No repetitive bending lifting or twisting. [email or web address] Not available 05/09/2024 07:37:27 05/30/2024 71080 work status report* - Return to full duty work on 05/30/24 [email or web address] Not available 06/06/2024 08:12:15 Reason for Referral Additional Comments:Active r ehab home exercise program continue to work readiness. Referring Physician: Armand Pagan, Orthopedic Surgery, Encounter Date: 04/04/2024 Problems Name Problem SNOMED Code Status Onset Date Resolution Date Notes Provider Name and Address Organization Details Recorded Time Low back pain 088205713 Active Armand Pagan MD [address], [place], [address] , [place] [facility], [facility] 4 13:35:01 Accident while engaged in work-relat ed activity Active 024 Armand Pagan MD [address], [place], [address] , [facility], P 4 13:37:00 Problem Notes None recorded. Procedures Surgical History Date Name Laterality Status Provider Name and Address Organization Details Recorded Time loop electrosurgical excision procedure completed Juditeleanor Doshi [facility], [facility] 03/07/2024 12:05:15 endometrial resection completed Judit Doshi [facility], [facility] 03/07/2024 12:07:28 Imaging Results None recorded. Procedure Notes None recorded. Medical Equipment None Reported. Allergies Allergen ID Allergen Name Allergen Category Reaction Reaction Severity Criticality Documentation Date Start Date Code Code System Note Provider Name and Address Organization Details Recorded Time 73496 Product containin g gadoliniu m and/or gadoliniu m compound (product) medicatio n Not available Not available Not available 03/07/2024 60005 3008 SNOMED Judit Tico raymond, [facility], P 4 11:58:57 15872 cat dander environme nt Not available Not available Not available [facility]07[facility]20[facility] 11:59[facility]02 Medications Name Sig [...] Updated DateTime 03/07/2024 161.29 cm 30.2 kg/m2 48303.48 g Asiya Cosme [facility] 03/07/2024 11:16:29 Date Recorded Body height Body mass index (BMI) Body weight Provider Name and Address Organization Details Last Updated DateTime 04/04/2024 161.29 cm 29.6 kg/m2 33163.7 g Judit Tico [facility], [facility] 04/04/2024 13:28:23 Date Recorded Body height Body mass index (BMI) Body weight Provider Name and Address Organization Details Last Updated DateTime 05/02/2024 161.29 cm 29.6 kg/m2 66328.7 g Judit Tico [facility], [facility] 05/02/2024 09:05:06 Date Recorded Body height Body mass index (BMI) Body weight Provider Name and Address Organization Details Last Updated DateTime 05/30/2024 161.29 cm 29.6 kg/m2 37609.7 g Judit Tico [facility] 05/30/2024 09:05:06 Social History None recorded. Functional Status Question Answer Note LastModified by Organizat ion Details LastModified Time How many times per week do you consume alcohol? 1-2 times per week [email or web address] Information not available 03/07/2024 Do you use any illicit or recreational drugs? No [email or web address] Information not available 03/07/2024 Do you or have you ever used any other forms of tobacco or nicotine? No [email or web address] Information not available 03/07/2024 What is your level of alcohol consumption? Occasional [email or web address] Information not available 03/07/2024 Mental Status None recorded. Family History Relationship Description Onset Age of this Age Resolved Age Notes LastModified by Organization Details LastModified Time Mother Family history of malignant neoplasm [email or web address] Not available 11:59:35 Father Family history of malignant neoplasm [email or web address] Not available 11:59:35 Sister Family history of malignant neoplasm [email or web address] Not available 11:59:35 Medical History Condition Response [...] Anemia N Brain Injury N Heart Attack ([place]) N Osteopenia N Diabetes N Bleeding Disorder [...] ICD10 Code Diagnosis IMO Codes Diagnosis Note [id number] [address] [place] [address] 03/07/2024 10:52:34 03/07/2024 11:49:40 Low back pain 029355237 M54.50 Additional diagnosis detail: Lumbar pain [id number] MD ARCHANA Escobedo [address] [place] [address] 04/04/2024 13:22:04 04/04/2024 13:42:38 Low back pain 258927603 M54.50 Accident w anuele engaged in work-related activity 68958662 Y99.0 [id number] [address] [place] [address] 05/02/2024 09:03:22 05/02/2024 09:17:26 Low back pain 952092424 M54.50 Additional diagnosis detail: Lumbar pain Accident w hile engaged in work-related activity 20763185 Y99.0 [id number] [address] [place] [address] 05/30/2024 08:58:51 05/30/2024 09:17:42 Low back pain 217207361 M54.50 Additional diagnosis detail: Lumbar pain Accident melvi zuniga engaged in work-related activity 02602102 Y99.0 Health Concerns Section Related Observation LastModified by Organization Detai ls LastModified Time None Recorded Concern Status LastModified by Organization Details LastModified Time None Recorded Advance Directives Directive None Recorded Payers Insurance Date Sequence Insurance Name Policy Number Policy Welsh Covered Member ID Welsh Member ID Guarantor Name 05/31/2024 [employer] Bessie Guerrier Notes Date Note Type Note Provider Name and Address Organization Details Recorded Time 03/07/2024 text/html ROS as noted in the HPI [address], [place], [address], [place] [facility] 03/07/2024 12:14:01 05/02/2024 text/html ROS as noted in the HPI PRIOR DMK:48-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 [address], [place], [address], [place] [facility], [facility] 05/02/2024 09:22:23 05/30/2024 text/html ROS as noted in the HPI [address], [place], [address], [place] [facility], [facility] 05/30/2024 09:18:02 OBGyn Episode No OBEpisode recorded.
== END 2025-08-22 09:06 | disposition home or self-care (01) ==
LOC: HO.MRI 09:05
PROVIDERS: PCP Internal Medicine; Visit Provider Internal Medicine
DX: Z80.3 Family history of malignant neoplasm of breast (principal)
CPT/HCPCS: 77049; A9585